=== PATIENT | female | born 1940 | race Caucasian/White ===

== ENCOUNTER → 2017-08-06 | Outpatient (CLI) | payer MEDICARE ==
[~2017-08-06] MED LIST: ACET-1697 PO; AMIO200T50 PO; ASP81CT PO; CALC-80 PO; CARB15DR75 OU; CEFU500T5 PO; DIGO125T PO; DILT120C82 PO; DILT120T11 PO; DLT60T PO; FISH1CAP15 PO; FRSM40T; FURO80TA3 PO; GMFB600T; HCT25T PO; KCL10CCR; KCL20TCR PO; LOVA20TA2 PO; LVT.05T PO; METO50TA2 PO; METO50TA7 PO; MULT-142 PO; NFAMINITAB PO; OMEG1CAP51 PO; OMG1KC; OMG1KC PO; PACERONE; PRAV40TA PO; VIT1TABL57 PO; WARF2.5T56 PO; WRF2.5T; WRF5T; WRF5T PO
--- NOTE | 2017-08-07 10:03 | Diagnostic Imaging Report ---
EXAMINATION: Bilateral screening mammogram 2D views with tomosynthesis. The current study was also evaluated with a Computer Aided Detection (CAD) system. INDICATION: Screening. PERSONAL HISTORY: No current complaints stated on the questionnaire. COMPARISON: 07/30/2016. FINDINGS: The breasts are composed of heterogeneously dense parenchyma in the left breast and scattered fibroglandular densities on the right side with global asymmetry, stable from multiple prior exams. A pacemaker projects over the left axillary region. Benign-appearing calcifications are noted. Circumscribed lesions in the outer aspect of the left breast are again seen, previously demonstrated to be cysts with ultrasound. Allowing for technique and positional differences, no suspicious change is seen. IMPRESSION: No significant change. ACR BI-RADS Category 2: Benign findings. Result letter will be mailed to the patient. Note: At least 10% of breast cancer is not imaged by mammography. Dictated by: Dictated on workstation # [id number]
== END ==
LOC: RAD 09:34
PROVIDERS: ATTEND Family Medicine
DX: Z12.31 Encounter for screening mammogram for malignant neoplasm of breast (principal)
CPT/HCPCS: 77067

== ENCOUNTER 2018-11-21 07:29 | Day surgery (SDC) | payer MEDICARE ==
[~2018-11-21] VITALS: Ht 160 cm; Wt 153.8 kg
[2018-11-21] VITALS (10 sets, daily range): BP systolic 105–142; BP diastolic 49–84
--- OUTSIDE RECORDS SUMMARY | 2018-11-21 07:32 | XMS REPORT | Clinical Summary ---
Author Author [facility] Organization [facility] Address Unknown Phone Unavailable Care Team Providers Care Border Measurer And Cutter Name Role Phone Cesario Lobato PCP Robina Elias RN Unavailable Unavailable Nadege Forbes RN Unavailable Unavailable Source Comments Some departments are not documenting in the electronic medical record. If you do not see the information that you expected, contact Release of Information in the Health Information Management department at [phone] for further assistance in locating additional records.[facility] Allergies Comments Active Allergy Reactions Severity Noted Date Pulls skin off. Tolerates paper tape Adhesive Tape (Rosins) SEE COMMENTS Low 03/17/2015 Hydrocodone NAUSEA ONLY Low 03/17/2015 Rhabdomyosis Gemfibrozil UNKNOWN Low 03/03/2015 Medications End Date Status Medication Sig Dispensed Refills Start Date Active furosemide (LASIX) 80 mg Take 80 mg by 0 tablet mouth every morning. Active potassium chloride SR Take 20 mEq 0 (K-DUR) 20 mEq tablet by mouth daily. Active warfarin (COUMADIN) 2.5 Take 2.5 mg 0 mg tablet by mouth daily. 2.5 everyday, 5 mg Saturday/ day Active fish oil /omega-3 fatty Take 1 Cap by 0 acids (SEA-OMEGA) mouth daily. 340/1000 mg capsule Active VIT C/VIT Take 1 Tab by 0 E/LUTEIN/MIN/OMEGA-3 mouth daily. (OCUVITE PO) Active CALCIUM CARBONATE/VITAMIN Take 1 Tab by 0 D3 (CALCIUM + D PO) mouth twice daily. Active levothyroxine (SYNTHROID) Take 50 mcg 0 50 mcg tablet by mouth every morning. Active acetaminophen (TYLENOL) Take 1,000 mg 0 500 mg tablet by mouth every 6 hours as needed for Pain. Active lovastatin(+) (MEVACOR) Take 20 mg by 0 20 mg tablet mouth at bedtime daily. Active CARBOXYMETHYLCELLULOSE Place 2 Drops 0 SODIUM (REFRESH OP) into or around eye(s) as Needed. Active Problems Problem Noted Date Persistent atrial fibrillation 03/23/2015 Chronic anticoagulation, on warfarin 03/22/2015 Paroxysmal atrial fibrillation 03/03/2015 Edema 03/03/2015 Hypertension 03/03/2015 Hyperlipidemia 03/03/2015 Morbid obesity with BMI of 50.0-59.9, adult 03/03/2015 Osteoarthritis 03/03/2015 Bilateral carotid artery stenosis 03/03/2015 History of CHF (congestive heart failure) 03/03/2015 Overview: 02/15/2014- echo: EF: 60% CAD (coronary artery disease) 03/03/2015 Hypothyroid 03/03/2015 Left ventricular hypertrophy 03/03/2015 Obstructive sleep apnea 03/03/2015 S/P cholecystectomy 03/03/2015 Family History Medical History Relation Name Comments Pacemaker Father Heart Failure Mother Pacemaker Mother Relation Name Status Comments Father Mother Social History Date Tobacco Use Types Packs/Day Years Used Never Smoker Smokeless Tobacco: Never Used Alcohol Use Drinks/Week oz/Week Comments No Sex Assigned at Date Recorded Not on file Industry Job Start Date Occupation Not on file Not on file Not on file Travel End Travel History Travel Start No recent travel history available. Last Filed Vital Signs Time Taken Vital Sign Reading 05/04/2015 8:26 AM CDT Blood Pressure 126/78 05/04/2015 8:26 AM CDT Pulse 102 03/23/2015 10:11 AM CDT Temperature 36.7 C (98.1 F) - Respiratory Rate - 03/23/2015 10:11 AM CDT Oxygen Saturation 98% - Inhaled Oxygen - Concentration 05/04/2015 8:26 AM CDT Weight 152.4 kg (336 lb) 05/04/2015 8:26 AM CDT Height 160 cm (5' 2.99") 05/04/2015 8:26 AM CDT Body Mass Index 59.53 Plan of Treatment Health Maintenance Due Date Last Done Comments PHYSICAL (COMPREHENSIVE) 1947 EXAM DTAP/TDAP VACCINES (1 - 02/25/1960 Tdap) SHINGLES RECOMBINANT 02/25/1992 VACCINE (1 of 2) OSTEOPOROSIS 2007 SCREENING/MONITORING PNEUMONIA (PCV13/PPSV23) 2007 VACCINES (1 of 2 - PCV13) INFLUENZA VACCINE 03/26/2018 Implants Device Identifier Shelf Expiration Date Model / Serial / Lot Implanted Type Area Manufactur er Pacemaker Pacemaker Results Not on filefrom Last 3 Months Insurance Type Payer Benefit Subscriber ID Effective Phone Address Plan / Dates Group Medicare COVENTRY MEDICARE COVENTRY xxxxxxxxxxx [id number] ADVANTRA resent MEDICARE PPO Advance Directives Patient has advance care planning documents, and code status on file. For more information, please contact: [facility] [address] [place] [address] Date Inactivated Comments Code Status Date Activated 03/23/2015 12:29 PM Full Code 03/22/2015 6:16 AM Provider has discussed Code Status No, more discussion w/Patient or Family? needed
--- OUTSIDE RECORDS SUMMARY | 2018-11-21 07:33 | XMS REPORT | Continuity of Care Document ---
Author Author [facility] Organization [facility] Address Unknown Phone Unavailable Allergies Active Description Code Type Severity Reaction Onset Reported/Identified Relationship to Patient Clinical Status Yes codeine [id number] Drug Allergy Unknown N/A 05/28/2007 Yes hydrocodone [id number] Drug Allergy Mild NAUSEA 03/26/2008 Medications There is no data. Problems Date Dx Coded Attending Type Code Diagnosis Diagnosed By 11/25/2009 Ot 327.23 11/25/2009 Ot 427.31 01/03/2012 Ot 272.4 HYPERLIPIDEMIA NEC/NOS 01/03/2012 Ot 397.0 TRICUSPID VALVE DISEASE 01/03/2012 Ot 401.9 HYPERTENSION NOS 01/03/2012 Ot 416.8 CHR PULMON HEART DIS NEC 01/03/2012 Ot 424.0 MITRAL VALVE DISORDER 01/03/2012 Ot 427.31 ATRIAL FIBRILLATION 01/03/2012 Ot 427.32 ATRIAL FLUTTER 01/03/2012 Ot 427.81 SINOATRIAL NODE DYSFUNCT 01/03/2012 Ot 429.9 HEART DISEASE NOS 01/03/2012 Ot 496 CHR AIRWAY OBSTRUCT NEC 04/19/2012 Ot 244.9 HYPOTHYROIDISM NOS 04/19/2012 Ot 272.4 HYPERLIPIDEMIA NEC/NOS 04/19/2012 Ot 276.51 DEHYDRATION 04/19/2012 Ot 276.8 HYPOPOTASSEMIA 04/19/2012 Ot 278.01 MORBID OBESITY 04/19/2012 Ot 327.23 OBSTRUCTIVE SLEEP APNEA (ADULT) (PEDIATR 04/19/2012 Ot 401.9 HYPERTENSION NOS 04/19/2012 Ot 416.8 CHR PULMON HEART DIS NEC 04/19/2012 Ot 427.31 ATRIAL FIBRILLATION 04/19/2012 Ot 428.0 CONGESTIVE HEART FAILURE NOS 04/19/2012 Ot 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 04/19/2012 Ot 496 CHR AIRWAY OBSTRUCT NEC 04/19/2012 Ot 593.9 RENAL URETERAL DIS NOS 04/19/2012 Ot 783.21 LOSS OF WEIGHT 04/19/2012 Ot 790.92 COAGULATION PROFILE, ABNORMAL 04/19/2012 Ot V45.01 CARDIAC PACEMAKER IN SITU 04/19/2012 Ot V60.3 PERSON LIVING ALONE 04/19/2012 Ot V85.43 BODY MASS INDEX 50.0-59.9, ADULT 07/21/2014 ASHLI OLIVERA DO Ot V76.12 11/06/2014 ANI DELUNA MD Ot 244.9 HYPOTHYROIDISM NOS 11/06/2014 ANI DELUNA MD Ot 272.4 HYPERLIPIDEMIA NEC/NOS 11/06/2014 ANI DELUNA MD Ot 276.51 DEHYDRATION 11/06/2014 ANI DELUNA MD Ot 278.01 MORBID OBESITY 11/06/2014 ANI DELUNA MD Ot 327.23 OBSTRUCTIVE SLEEP APNEA (ADULT) (PEDIATR 11/06/2014 ANI DELUNA MD Ot 401.9 HYPERTENSION NOS 11/06/2014 ANI DELUNA MD Ot 416.8 CHR PULMON HEART DIS NEC 11/06/2014 ANI DELUNA MD Ot 427.31 ATRIAL FIBRILLATION 11/06/2014 ANI DELUNA MD Ot 428.0 CONGESTIVE HEART FAILURE NOS 11/06/2014 ANI DELUNA MD Ot 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 11/06/2014 ANI DELUNA MD Ot 496 CHR AIRWAY OBSTRUCT NEC 11/06/2014 ANI DELUNA MD Ot V45.01 CARDIAC PACEMAKER IN SITU 11/06/2014 ANI DELUNA MD Ot V85.44 BODY MASS INDEX 60.0-69.9, ADULT 11/25/2014 ANI DELUNA MD Ot 244.9 11/25/2014 ANI DELUNA MD Ot 272.4 11/25/2014 ANI DELUNA MD Ot 276.51 11/25/2014 ANI DELUNA MD Ot 278.01 11/25/2014 ANI DELUNA MD Ot 327.23 11/25/2014 ANI DELUNA MD Ot 401.9 11/25/2014 ANI DELUNA MD Ot 416.8 11/25/2014 ANI DELUNA MD Ot 427.31 11/25/2014 ANI DELUNA MD Ot 428.0 11/25/2014 ANI DELUNA MD Ot 428.22 11/25/2014 ANI DELUNA MD Ot 496 11/25/2014 ANI DELUNA MD Ot V45.01 11/25/2014 ANI DELUNA MD Ot V85.44 01/25/2015 Ot V76.12 01/25/2015 Ot 272.4 01/25/2015 Ot 401.9 01/25/2015 Ot 414.01 01/25/2015 Ot 401.9 01/25/2015 Ot 429.3 01/25/2015 Ot V58.69 01/25/2015 Ot 611.72 01/25/2015 Ot V76.12 01/25/2015 Ot 272.4 01/25/2015 Ot 272.4 01/25/2015 Ot 401.9 01/25/2015 Ot 427.31 01/25/2015 Ot V76.12 01/25/2015 Ot 427.31 01/25/2015 Ot 276.8 01/25/2015 Ot 593.9 01/25/2015 Ot 782.3 01/25/2015 Ot 793.80 01/25/2015 Ot V76.12 01/25/2015 Ot 793.80 01/25/2015 ASHLI OLIVERA DO Ot 610.0 01/25/2015 ANI DELUNA MD Ot 397.0 01/25/2015 ANI DELUNA MD Ot 401.9 01/25/2015 ANI DELUNA MD Ot 414.00 01/25/2015 ANI DELUNA MD Ot 424.0 01/25/2015 ANI DELUNA MD Ot 428.0 01/25/2015 ASHLI OLIVERA DO Ot V76.12 01/26/2015 ANI DELUNA MD Ot 401.9 HYPERTENSION NOS 01/26/2015 ANI DELUNA MD Ot 414.00 CORON ATHEROSCLER NOS TYPE VESSEL, NATIV 01/26/2015 ANI DELUNA MD Ot 424.0 MITRAL VALVE DISORDER 01/26/2015 ANI DELUNA MD Ot 427.31 ATRIAL FIBRILLATION 01/26/2015 ANI DELUNA MD Ot 428.0 CONGESTIVE HEART FAILURE NOS 01/26/2015 ANI DELUNA MD Ot 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 01/26/2015 ANI DELUNA MD Ot 496 CHR AIRWAY OBSTRUCT NEC 01/26/2015 ANI DELUNA MD Ot 785.0 TACHYCARDIA NOS 01/26/2015 ANI DELUNA MD Ot V58.61 ANTICOAGULANTS,LT,CURRENT USE 01/26/2015 ANI DELUNA MD Ot V58.69 OTH MED,LT,CURRENT USE 03/23/2015 Ot 272.4 03/23/2015 Ot 401.9 03/23/2015 Ot 414.01 03/23/2015 Ot 401.9 03/23/2015 Ot 429.3 03/23/2015 Ot V58.69 03/23/2015 Ot 611.72 03/23/2015 Ot V76.12 03/23/2015 Ot 272.4 03/23/2015 Ot 272.4 03/23/2015 Ot 401.9 03/23/2015 Ot 427.31 03/23/2015 Ot V76.12 03/23/2015 Ot 427.31 03/23/2015 Ot 276.8 03/23/2015 Ot 593.9 03/23/2015 Ot 782.3 03/23/2015 Ot 793.80 03/23/2015 Ot V76.12 03/23/2015 Ot 793.80 03/23/2015 ASHLI OLIVERA DO Ot 610.0 03/23/2015 ANI DELUNA MD Ot 397.0 03/23/2015 ANI DELUNA MD Ot 401.9 03/23/2015 ANI DELUNA MD Ot 414.00 03/23/2015 ANI DELUNA MD Ot 424.0 03/23/2015 ANI DELUNA MD Ot 428.0 03/23/2015 ASHLI OLIVERA DO Ot V76.12 07/27/2015 ASHLI OLIVERA DO Ot Z12.31 08/05/2015 ASHLI OLIVERA DO Ot Z12.31 12/09/2015 ANI DELUNA MD Ot E78.2 MIXED HYPERLIPIDEMIA 12/09/2015 ANI DELUNA MD Ot I10 ESSENTIAL (PRIMARY) HYPERTENSION 12/09/2015 ANI DELUNA MD Ot I27.2 OTHER SECONDARY PULMONARY HYPERTENSION 12/09/2015 ANI DELUNA MD Ot I48.0 PAROXYSMAL ATRIAL FIBRILLATION 12/21/2015 ANI DELUNA MD Ot E78.2 MIXED HYPERLIPIDEMIA 12/21/2015 REGI MD, BASHAR J Ot I10 ESSENTIAL (PRIMARY) HYPERTENSION 12/21/2015 ANI DELUNA MD Ot I27.2 OTHER SECONDARY PULMONARY HYPERTENSION 12/21/2015 ANI DELUNA MD Ot I48.0 PAROXYSMAL ATRIAL FIBRILLATION 12/25/2015 Ot 272.4 12/25/2015 Ot 276.8 HYPOPOTASSEMIA 12/25/2015 Ot 593.9 RENAL URETERAL DIS NOS 12/25/2015 Ot 782.3 EDEMA 01/06/2016 ANI DELUNA MD Ot E78.2 MIXED HYPERLIPIDEMIA 01/06/2016 ANI DELUNA MD Ot I10 ESSENTIAL (PRIMARY) HYPERTENSION 01/06/2016 ANI DELUNA MD Ot I27.2 OTHER SECONDARY PULMONARY HYPERTENSION 01/06/2016 ANI DELUNA MD Ot I48.0 PAROXYSMAL ATRIAL FIBRILLATION 02/23/2016 ANI DELUNA MD Ot E78.2 MIXED HYPERLIPIDEMIA 02/23/2016 ANI DELUNA MD Ot I10 ESSENTIAL (PRIMARY) HYPERTENSION 02/23/2016 ANI DELUNA MD Ot I27.2 OTHER SECONDARY PULMONARY HYPERTENSION 02/23/2016 ANI DELUNA MD Ot I48.0 PAROXYSMAL ATRIAL FIBRILLATION 04/26/2016 Ot 272.4 05/26/2016 Ot 276.8 HYPOPOTASSEMIA 05/26/2016 Ot 593.9 RENAL URETERAL DIS NOS 05/26/2016 Ot 782.3 EDEMA 07/30/2016 Ot 272.4 HYPERLIPIDEMIA NEC/NOS 07/30/2016 Ot 272.4 HYPERLIPIDEMIA NEC/NOS 07/30/2016 Ot 401.9 HYPERTENSION NOS 07/30/2016 Ot 427.31 ATRIAL FIBRILLATION 07/30/2016 Ot V76.12 OTH SCREEN MAMMO-MALIGN NEOPLASM OF JUNG 07/30/2016 Ot 427.31 ATRIAL FIBRILLATION 07/30/2016 Ot 276.8 HYPOPOTASSEMIA 07/30/2016 Ot 593.9 RENAL URETERAL DIS NOS 07/30/2016 Ot 782.3 EDEMA 07/30/2016 Ot 793.80 UNSPEC ABNORMAL MAMMOGRAM 07/30/2016 Ot V76.12 OTH SCREEN MAMMO-MALIGN NEOPLASM OF JUNG 07/30/2016 Ot 793.80 UNSPEC ABNORMAL MAMMOGRAM 07/30/2016 ASHLI OLIVERA DO Ot 610.0 SOLITARY CYST OF BREAST 07/30/2016 ANI DELUNA MD Ot 397.0 TRICUSPID VALVE DISEASE 07/30/2016 ANI DELUNA MD Ot 401.9 HYPERTENSION NOS 07/30/2016 ANI DELUNA MD Ot 414.00 CORON ATHEROSCLER NOS TYPE VESSEL, NATIV 07/30/2016 ANI DELUNA MD Ot 424.0 MITRAL VALVE DISORDER 07/30/2016 ANI DELUNA MD Ot 428.0 CONGESTIVE HEART FAILURE NOS 07/30/2016 ASHLI OLIVEAR DO Ot V76.12 OTH SCREEN MAMMO-MALIGN NEOPLASM OF JUNG 07/30/2016 ASHLI OLIVERA DO Ot Z12.31 ENCNTR SCREEN MAMMOGRAM FOR MALIGNANT NE 07/30/2016 ANI DELUNA MD Ot E78.2 MIXED HYPERLIPIDEMIA 07/30/2016 ANI DELUNA MD Ot I10 ESSENTIAL (PRIMARY) HYPERTENSION 07/30/2016 ANI DELUNA MD Ot I27.2 OTHER SECONDARY PULMONARY HYPERTENSION 07/30/2016 ANI DELUNA MD Ot I48.0 PAROXYSMAL ATRIAL FIBRILLATION 07/30/2016 ASHLI OLIVERA DO Ot Z12.31 ENCNTR SCREEN MAMMOGRAM FOR MALIGNANT NE 07/31/2016 ASHLI OLIVERA DO Ot Z12.31 ENCNTR SCREEN MAMMOGRAM FOR MALIGNANT NE 08/10/2016 ASHLI OLIVERA DO Ot Z12.31 ENCNTR SCREEN MAMMOGRAM FOR MALIGNANT NE 09/26/2016 Ot 276.8 HYPOPOTASSEMIA 09/26/2016 Ot 593.9 RENAL URETERAL DIS NOS 09/26/2016 Ot 782.3 EDEMA 04/26/2017 Ot 276.8 HYPOPOTASSEMIA 04/26/2017 Ot 593.9 RENAL URETERAL DIS NOS 04/26/2017 Ot 782.3 EDEMA 05/26/2017 Ot 272.4 05/26/2017 Ot 276.8 HYPOPOTASSEMIA 05/26/2017 Ot 593.9 RENAL URETERAL DIS NOS 05/26/2017 Ot 782.3 EDEMA 08/20/2017 ASHLI OLIVERA DO Ot Z12.31 ENCNTR SCREEN MAMMOGRAM FOR MALIGNANT NE 11/18/2018 ASHLI OLIVERA DO Ot 610.0 SOLITARY CYST OF BREAST 11/18/2018 ANI DELUNA MD Ot 397.0 TRICUSPID VALVE DISEASE 11/18/2018 ANI DELUNA MD Ot 401.9 HYPERTENSION NOS 11/18/2018 ANI DELUNA MD Ot 414.00 CORON ATHEROSCLER NOS TYPE VESSEL, NATIV 11/18/2018 ANI DELUNA MD Ot 424.0 MITRAL VALVE DISORDER 11/18/2018 ANI DELUNA MD Ot 428.0 CONGESTIVE HEART FAILURE NOS 11/18/2018 ASHLI OLIVERA DO Ot V76.12 OTH SCREEN MAMMO-MALIGN NEOPLASM OF JUNG 11/18/2018 ASHLI OLIVERA DO Ot Z12.31 ENCNTR SCREEN MAMMOGRAM FOR MALIGNANT NE 11/18/2018 ANI DELUNA MD Ot E78.2 MIXED HYPERLIPIDEMIA 11/18/2018 ANI DELUNA MD Ot I10 ESSENTIAL (PRIMARY) HYPERTENSION 11/18/2018 ANI DELUNA MD Ot I27.2 OTHER SECONDARY PULMONARY HYPERTENSION 11/18/2018 ANI DELUNA MD Ot I48.0 PAROXYSMAL ATRIAL FIBRILLATION 11/18/2018 ASHLI OLIVERA DO, Ot Z12.31 ENCNTR SCREEN MAMMOGRAM FOR MALIGNANT NE 11/18/2018 ASHLI OLIVERA DO, Ot Z12.31 ENCNTR SCREEN MAMMOGRAM FOR MALIGNANT NE Procedures Code Description Performed By Performed On 88.72 DX ULTRASOUND-HEART 12/31/2011 99.62 HEART COUNTERSHOCK NEC 12/31/2011 37.72 INITIAL INSERT TRANS LEADS INTO ATRIUM 01/02/2012 37.83 INITIAL INSERTION OF DUAL- CHAMBER DEVICE 01/02/2012 Results There is no data. Encounters ACCT No. Visit Date/Time Discharge Status Pt. Type Provider Facility Loc./Unit Complaint [id number] 08/06/2017 09:34:00 08/06/2017 23:59:59 CLS Outpatient ASHLI OLIVERA DO [facility] RAD YEARLY [id number] 07/30/2016 11:18:00 07/30/2016 23:59:59 CLS Outpatient ASHLI OLIVERA DO [facility] RAD YEARLY [id number] 12/08/2015 11:31:00 12/08/2015 23:59:59 CLS Outpatient ANI DELUNA MD [facility] CARD PAF,PULMONARY HTN,HLP [id number] 07/25/2015 10:46:00 07/25/2015 23:59:59 CLS Outpatient NAZARIOASHLI RIBEIRO DO [facility] RAD SCREENING [id number] 01/26/2015 07:58:00 01/26/2015 11:57:00 DIS Outpatient ANI DELUNA MD [facility] CATH AFIB,CHF, [id number] 11/04/2014 07:40:00 11/06/2014 13:30:00 DIS Inpatient ANI DELUNA MD [facility] ICU AFIB W RVR [id number] 07/01/2014 12:36:00 07/01/2014 23:59:59 CLS Outpatient ASHLI OLIVERA DO [facility] RAD SCREENING [id number] 02/12/2014 09:54:00 02/12/2014 23:59:59 CLS Outpatient ANI DELUNA MD [facility] CARD CAD,CHF,CAROTID ARTERY STENOSIS,HTN [id number] 05/29/2013 09:05:00 05/29/2013 23:59:59 CLS Outpatient ASHLI OLIVERA DO [facility] RAD SIX MONTH F/U [id number] 11/21/2018 10:00:00 PEN Preadmit ANI DELUNA MD [facility] CATH JAIRO,CHF,SSS,HTN [id number] 11/18/2018 10:01:00 PEN Preadmit ASHLI OLIVERA DO [facility] RAD POST MENOPAUSAL VAGINAL BLEEDING [id number] 01/25/2015 10:46:00 Document Registration [id number] 01/25/2015 10:46:00 Document Registration [id number] 01/25/2015 10:46:00 Document Registration [id number] 11/07/2012 11:20:00 Document Registration [id number] 04/16/2012 15:00:00 Document Registration [id number] 04/14/2012 12:23:00 Document Registration [id number] 01/07/2012 13:22:00 Document Registration [id number] 10/26/2011 08:38:00 Document Registration [id number] 10/04/2011 11:03:00 Document Registration [id number] 07/25/2011 09:09:00 Document Registration [id number] 04/05/2011 08:59:00 Document Registration [id number] 10/10/2010 08:46:00 Document Registration [id number] 10/05/2010 08:49:00 Document Registration [id number] 11/24/2009 19:39:00 Document Registration [id number] 09/28/2009 13:28:00 Document Registration [id number] 06/09/2007 09:05:00 Document Registration [id number] 01/26/2015 07:58:19 ACT Document Registration
[2018-11-21] MEDS ORDERED: NS IV 1000 ML 1,000 ML IV SCH ×2 (07:51→11:11)
[2018-11-21] MEDS ORDERED: NS IV 1000 ML 2,000 ML ONE (07:55)
[2018-11-21] MEDS ORDERED: LIDOCAINE 1% INJ 20 ML 20 ML VIAL ONE (07:55)
[2018-11-21] MEDS ORDERED: HEParin 1000 UNIT/ML (10ML VIAL) FOR BOLUS ONE (07:55)
--- NOTE | 2018-11-21 08:32 | Diagnostic Imaging Report ---
INDICATION: CHF. TIME OF EXAMINATION: 8:20 AM. COMPARISON: 01/26/2015. FINDINGS: The heart is enlarged but stable. The cardiac pacemaker remains in place. The lungs are clear. No infiltrate or failure is detected. There is no effusion or pneumothorax. IMPRESSION: Stable chest. No acute feature is detected. Dictated by: Dictated on workstation # [id number]
[2018-11-21] MEDS ORDERED: CALC1TAB94 PO (08:43)
[2018-11-21] MEDS ORDERED: FURO80TA3 PO (08:43)
[2018-11-21] MEDS ORDERED: OMG1KC PO (08:43)
[2018-11-21] MEDS ORDERED: APIX5TAB PO (08:43)
[2018-11-21] MEDS ORDERED: CARB15DR OU (08:43)
[2018-11-21] MEDS ORDERED: ATOR20TA66 PO (08:43)
[2018-11-21] MEDS ORDERED: POTA20TA8 PO (08:43)
[2018-11-21] MEDS ORDERED: LEVO50TA6 PO (08:43)
[2018-11-21] MEDS ORDERED: MV-M1TAB38 PO (08:43)
[2018-11-21] MEDS ORDERED: ACET-168 PO (08:43)
[2018-11-21] MEDS ORDERED: LISI10TA2 PO (08:43)
[2018-11-21] MEDS ORDERED: FLU QUADRIvalent (5+ YOA) 2018-2019 (AFLURIA) 0.5 ML IM ONE (08:45)
[2018-11-21] MEDS ORDERED: BACITRACIN INJECTION 50,000 UNIT, SODIUM CHLORIDE 0.9% IRRIGATIO 500 ML IR ONE ×2 (08:45)
[2018-11-21] MEDS ORDERED: C,E,1CAP PO (08:48)
[2018-11-21] MEDS ORDERED: ceFAZolin INJECTION 1,000 MG ONE (08:48)
[2018-11-21] MEDS ORDERED: fentaNYL INJECTION 100 MCG/2 ML AMP ONE ×2 (08:49→10:37)
[2018-11-21] MEDS ORDERED: MIDAZOLAM 5 MG/5 ML (VERSED) VIAL ONE ×2 (08:49→10:29)
--- NOTE | 2018-11-21 08:51 | NUR ---
PATIENT HAD HER BOTTLES WITH HER AND VERIFIED HOW SHE TAKES EACH MEDICATION.
[2018-11-21 08:54] LABS: HEMOGLOBIN 13.8 G/DL (11.5-16.0); MEAN PLATELET VOLUME 11.9 FL (7.4-10.4); RED CELL DISTRIBUTION WIDTH 13.4 % (10.0-14.5); WHITE BLOOD COUNT 7.4 10^3/uL (4.3-11.0)
[2018-11-21 08:55] LABS: PROTHROMBIN TIME PATIENT 13.7 SEC (12.2-14.7)
[2018-11-21 09:03] LABS: ALANINE AMINOTRANSFERASE 21 U/L (0-55); ALKALINE PHOSPHATASE 69 U/L (40-136); BUN/CREATININE RATIO 25; CALCIUM 9.9 MG/DL (8.5-10.1); CARBON DIOXIDE 24 MMOL/L (21-32); CHLORIDE 105 MMOL/L (98-107); CHOLESTEROL 164 MG/DL (< 200); CREATININE SERUM 0.88 MG/DL (0.60-1.30); GFR ESTIMATED > 60; GLUCOSE 120 MG/DL (70-105); HDL CHOLESTEROL 56 MG/DL (40-60); POTASSIUM 4.2 MMOL/L (3.6-5.0); SODIUM 141 MMOL/L (135-145); TOTAL PROTEIN 7.4 GM/DL (6.4-8.2); TRIGLYCERIDES 83 MG/DL (<150); VLDL CHOLESTEROL 17 MG/DL (5-40)
[2018-11-21] MEDS ORDERED: NEO/POLY/BAC (NEOSPORIN) OINT 15 GM TUBE ONE (10:43)
--- NOTE | 2018-11-21 11:10 | Cardiac Procedure Note-CS/ASA ---
Pre-Procedure Note Pre-Op Procedure Note H&P Reviewed The H&P was reviewed, patient examined and no changes noted. Date H&P Reviewed: Nov 21, 2018 Time H&P Reviewed: 09:30 Conscious Sedation Pre-Proced Time 09:30 ASA Score 3 For ASA 3 and 4: Consider anesthesia and medical clearance. Also, for patients with a history of failed moderate sedation consider anesthesia. Airway Lungs Heart ASA score ASA 1: a normal healthy patient ASA 2: a patient with a mild systemic disease (mid diabetes, controlled hypertension, obesity x ASA 3: a patient with a severe systemic disease that limits activity (angina , COPD, prior Myocardial infarction) ASA 4: a patient with an incapacitating disease that is a constant threat to life (CHF, renal failure) ASA 5: a moribund patient not expected to survive 24 hrs. (ruptured aneurysm) ASA 6: a declared brain- patient whose organs are being harvested. For emergent operations, add the letter E after the classification Mallampati Classification Grade 3 Sedation Plan Analgesia, Amnesia, Plan communicated to team members, Discussed options with patient/fam, Discussed risks with patient/fam The patient is an appropriate candidate to undergo the planned procedure, sedation, and anesthesia. The patient immediately re-assessed prior to indication. ANI DELUNA MD Nov 21, 2018 11:10
[2018-11-21] MEDS ORDERED: PATIENT MAY USE OWN MEDS, ALL PO SCH (11:15)
[2018-11-21] MEDS ORDERED: NON-FORMULARY MEDICATION 1 EA EA (Acetaminophen (Acetaminophen Extra Strength) 1,000 MG) PO PRN (11:15)
--- NOTE | 2018-11-21 11:16 | Packmaker Change ---
Pacemaker Change Physician (s)/Java Lead Engineer (s) Physician ANI DELUNA MD Pre-Procedure Diagnosis Pre-Procedure Diagnosis: complete heart block Post-Procedure Note Procedure Start Date: Nov 21, 2018 Name of Procedure: and dual-chamber pacemaker generator replacement Findings/Procedure Note 78 years old lady with history of paroxysmal atrial fibrillation, complete heart block, pacemaker dependent, reached JAIRO, scheduled for dual-chamber pacemaker generator replacement. Patient will need dual-chamber to stay with MRI compatible device. After x-ray of the procedure to the patient was unconscious were made. Placed on the cardiac catheterization laboratory. Local anesthesia applied, conscious sedation achieved, skin incision was made in the skin pocket was exposed, the old device was removed. IV exam in both atrial and ventricular leads. Appeared to be functioning normally. A new device was implanted and I used a [employer] SUZAN serial # [id number], leads were examined. No complication, device was tested. Patient is in atrial fibrillation, no intrinsic R waves were noted. Threshold for pacing was 2.5 V at 0.4 ms. Device was placed in the pocket and skin pocket was closed on 2 L of sutures. No complication noted Conclusion Successful dual-chamber pacemaker generator replacement with no complications Anesthesia Type: Conscious Sedation Estimated blood loss (mL): 5 ml Contrast Amount: 0 ml Post-Procedure Diagnosis Post-operative diagnosis: Chronic atrial fibrillation 6 sinus syndrome Cardiac pacemaker Hypertension ANI DELUNA MD Nov 21, 2018 11:16
[2018-11-21] MEDS ORDERED: CEFU500T63 PO (11:22)
[2018-11-21] MEDS ORDERED: ceFAZolin INJECTION 1,000 MG in WATER (STERILE) FOR INJECTION 10 ML IV SCH (16:00)
[2018-11-21] MEDS ORDERED: WATER (STERILE) FOR INJ 10 ML BTL INJ NR (16:30)
[2018-11-21] MEDS ORDERED: ceFAZolin INJECTION 1,000 MG VIAL IM NR (16:30)
[2018-11-21] MEDS ORDERED: ATORVASTATIN 20 MG (LIPITOR) TABLET PO SCH (21:00)
[2018-11-21] MEDS ORDERED: lisINopril 10 MG (PRINIVIL) TABLET PO SCH (21:00)
[2018-11-22] MEDS ORDERED: NON-FORMULARY MEDICATION 1 EA EA (Furosemide 80 MG) PO SCH (09:00)
[2018-11-22] MEDS ORDERED: KCL 20 MEQ TAB (K-DUR) PO SCH (09:00)
[2018-11-22] MEDS ORDERED: LEVOTHYROXINE 50 MCG (LEVOTHROID) TAB PO SCH (09:00)
[2018-11-22] MEDS ORDERED: OMEGA 3 (FISH OIL) 1000 MG CAP PO SCH (09:00)
== END 2018-11-21 17:08 | disposition home or self-care (01) ==
LOC: CATH 07:29 → ICU 11:31 → CATH 17:08
PROVIDERS: ATTEND Internal Medicine Cardiovascular Disease
DX: Z45.010 Encounter for checking and testing of cardiac pacemaker pulse generator [battery] (principal); I44.2 Atrioventricular block, complete; I48.2 Chronic atrial fibrillation; I10 Essential (primary) hypertension; E78.5 Hyperlipidemia, unspecified; I27.20 Pulmonary hypertension, unspecified; G47.33 Obstructive sleep apnea (adult) (pediatric); E03.9 Hypothyroidism, unspecified; J44.9 Chronic obstructive pulmonary disease, unspecified; Z79.01 Long term (current) use of anticoagulants; Z79.899 Other long term (current) drug therapy
CPT/HCPCS: 33228; 36415; 71045; 80053; 80061; 85027; 85610; 85730; 87081

== ENCOUNTER → 2018-11-27 | Outpatient (CLI) | payer MEDICARE ==
[~2018-11-27] MED LIST changes: +ACET-168 PO; +APIX5TAB PO; +ATOR20TA66 PO; +C,E,1CAP PO; +CALC1TAB94 PO; +CARB15DR OU; +CEFU500T63 PO; +LEVO50TA6 PO; +LISI10TA2 PO; +MV-M1TAB38 PO; +POTA20TA8 PO
--- NOTE | 2018-11-27 13:43 | Diagnostic Imaging Report ---
PROCEDURE: US PELVIC (NON OB) TECHNIQUE: Multiple real-time grayscale images were obtained over the pelvis in various projections transabdominally. INDICATION: Post menopausal bleeding. Uterus measures 7.2 x 4.7 x 4.5 cm. Endometrium does appear to be thickened at 12 mm. No myometrial mass is identified. Ovaries cannot be visualized due to overlying bowel gas. No adnexal mass or free fluid is seen. IMPRESSION: Thickened endometrium at 12 mm. No other significant abnormality is detected. Dictated by: Dictated on workstation # [id number]
== END ==
LOC: RAD 12:07
PROVIDERS: ATTEND Family Medicine
DX: N95.0 Postmenopausal bleeding (principal); R93.89 Abnormal findings on diagnostic imaging of other specified body structures
CPT/HCPCS: 76856

== ENCOUNTER 2019-02-03 05:35 | Outpatient (CLI) | payer MEDICARE ==
[~2019-02-03] VITALS: Ht 160 cm; Wt 153.8 kg
== END 2019-02-03 13:23 | disposition home or self-care (01) ==
LOC: PREOP 05:35
PROVIDERS: ATTEND Obstetrics & Gynecology
DX: Z01.818 Encounter for other preprocedural examination (principal)

== ENCOUNTER 2019-02-05 07:17 | Day surgery (SDC) | payer MEDICARE ==
[2019-02-05] VITALS (11 sets, daily range): BP systolic 117–159; BP diastolic 61–103
[~2019-02-05] VITALS: Ht 160 cm; Wt 153.8 kg
--- OUTSIDE RECORDS SUMMARY | 2019-02-05 07:22 | XMS REPORT | Encounter Summary ---
Author Author [facility] Organization [facility] Address Unknown Phone Unavailable Care Team Providers Care Or First Assist Registered Nurse Name Role Phone Cesario Lobato PCP Robina Elias RN Unavailable Unavailable Nadege Forbes RN Unavailable Unavailable Reason for Visit * Reason Comments Anticoagulation INR 2.4 on 05/03/15 Encounter Details Care Team Description Date Type Department Alexandria Quiñones RN Anticoagulation (INR 2.4 on 05/03/15) 05/03/2015 Documentation [facility] [address] [place] [address] Social History Date Tobacco Use Types Packs/Day Years Used Never Smoker Smokeless Tobacco: Never Used Drinks/Week oz/Week Comments Alcohol Use No Sex Assigned at Date Recorded Not on file Industry Job Start Date Occupation Not on file Not on file Not on file Travel End Travel History Travel Start No recent travel history available. documented as of this encounter Functional Status Date of Assessment Functional Status Response 03/23/2015 Does the patient have a hearing impairment: No 03/23/2015 Does the patient have a visual impairment: No 03/23/2015 Does the patient have impaired ambulation: No 03/23/2015 Does the patient have an activity of daily living No (ADL) impairment: 03/23/2015 Does the patient have an instrumental activity of No daily living (IADL) impairment: Date of Assessment Cognitive Status Response 03/23/2015 Does the patient have a cognitive impairment: No documented as of this encounter Progress Notes * Alexandria Quiñones RN - 05/03/2015 3:36 PM CDT INR 2.4, weekly s/p ablation 03/22, Dr. Roger manages. documented in this encounter Plan of Treatment Not on filedocumented as of this encounter Procedures Comments Procedure Name Priority Date/Time Associated Diagnosis PROTIME INR (PT) Routine 05/03/2015 documented in this encounter Results * PROTIME INR (PT) (05/03/2015) INR 2.4 OTHER OUTSIDE LAB Specimen Blood - Blood Narrative Performed At Performing Organization Address City/State/Zipcode Phone Number OTHER OUTSIDE LAB documented in this encounter Visit Diagnoses Not on filedocumented in this encounter
--- OUTSIDE RECORDS SUMMARY | 2019-02-05 07:22 | XMS REPORT | Clinical Summary ---
Author Author [facility] Organization [facility] Address Unknown Phone Unavailable Care Team Providers Care Microfilm Mounter Name Role Phone KayliCesario rodriguez PCP Robina Elias RN Unavailable Unavailable Nadege Forbes RN Unavailable Unavailable Source Comments Some departments are not documenting in the electronic medical record. If you d o not see the information that you expected, contact Release of Information in [facility] [place] Information Management department at [phone] for further assistan ce in locating additional records.[facility] Allergies Comments Active Allergy Reactions Severity [...] travel history available. Last Filed Vital Signs Reading Time Taken Comments Vital Sign 126/78 05/04/2015 8:26 AM CDT Blood Pressure 102 05/04/2015 8:26 AM CDT Pulse 36.7 C (98.1 F) 03/23/2015 10:11 AM CDT Temperature - - Respiratory Rate 98% 03/23/2015 10:11 AM CDT Oxygen Saturation - - Inhaled Oxygen Concentration 152.4 kg (336 lb) 05/04/2015 8:26 AM CDT Weight 160 cm (5' 2.99") 05/04/2015 8:26 AM CDT Height 59.53 05/04/2015 8:26 AM CDT Body Mass Index Plan of Treatment Health Maintenance Due Date Last Done Comments PHYSICAL (COMPREHENSIVE) 1947 EXAM DTAP/TDAP VACCINES (1 - 02/25/1960 Tdap) SHINGLES RECOMBINANT 02/25/1992 VACCINE (1 of 2) OSTEOPOROSIS 2007 SCREENING/MONITORING PNEUMONIA (PCV13/PPSV23) 2007 VACCINES (1 of 2 - PCV13) INFLUENZA VACCINE 05/26/2019 Implants Device Identifier Shelf Expiration Date Model / Serial / Lot Implanted Type Area Manufactur er Pacemaker Pacemaker Results Not on filefrom Last 3 Months Insurance Type Payer Benefit Subscriber ID Effective Phone Address Plan / Dates Group Medicare COVENTRY MEDICARE COVENTRY xxxxxxxxxxx [id number] ADVANTRA resent MEDICARE PPO Advance Directives Patient Collar Folder Operator Explanation Type Date Recorded Advance 03/17/2015 8:02 AM Directive/DPOA Date Inactivated Comments Code Status Date Activated 03/23/2015 12:29 PM Full Code 03/22/2015 6:16 AM Provider has discussed Code Status No, more discussion w/Patient or Family? needed
--- OUTSIDE RECORDS SUMMARY | 2019-02-05 07:22 | XMS REPORT | Encounter Summary ---
Author Author [facility] Organization [facility] Address Unknown Phone Unavailable Care Team Providers Care Pull Over Machine Operator Name Role Phone Cesario Lobato PCP Robina Elias RN Unavailable Unavailable Nadege Forbes RN Unavailable Unavailable Reason for Visit * Reason Comments Pacemaker Problem Pt needs pacemaker Lower Rate dec to 70 Encounter Details Care Team Description Date Type Department Elizabeth Anders RN Pacemaker Problem (Pt needs pacemaker Lower Rate dec to 70) 05/04/2015 Telephone [facility] [address] [place] [address] [address] Social History Date Tobacco Use Types Packs/Day [...] impairment: No documented as of this encounter Miscellaneous Notes * Telephone Encounter - Elizabeth Anders - 05/04/2015 3:08 PM CDT Pacemaker check/Dr. Landry OV today. Per Dr. Landry, pacemaker Lower Rate to be d ecreased from 80 to 70ppm. Placed call to pt home & spoke w/ pt. She will would rather have programming adjustment made by [employer] Rep @ Dr. Roger's office in [place]. Placed call to Dr. Roger ([phone]) & they will coordinate MDT Rep & pt's programming adjustment. Pt come into [place] office 05-26-15 for ajustment. documented in this encounter Plan of Treatment Not on filedocumented as of this encounter Visit Diagnoses Not on filedocumented in this encounter
--- OUTSIDE RECORDS SUMMARY | 2019-02-05 07:22 | XMS REPORT | Encounter Summary ---
Author Author [facility] Organization [facility] Address Unknown Phone Unavailable Care Team Providers Care Curtain Stretcher Name Role Phone Cesario Lobato PCP Robina Elias RN Unavailable Unavailable Nadege Forbes RN Unavailable Unavailable Reason for Visit * Reason Comments Cardiac Eval 2 month f/u re PAF Encounter Details Care Team Description Date Type Department Obi Landry MD [address] [address] Cardiac Eval (2 month f/u re PAF) 05/04/2015 Office Visit [facility] [address] [id number] Social History Date Tobacco Use Types Packs/Day Years Used Never Smoker Smokeless Tobacco: Never Used Drinks/Week oz/Week Comments Alcohol Use No Sex Assigned at Date Recorded Not on file Industry Job Start Date Occupation Not on file Not on file Not on file Travel End Travel History Travel Start No recent travel history available. documented as of this encounter Last Filed Vital Signs Reading Time Taken Comments Vital Sign 126/78 05/04/2015 8:26 AM CDT Blood Pressure 102 05/04/2015 8:26 AM CDT Pulse - - Temperature - - Respiratory Rate - - Oxygen Saturation - - Inhaled Oxygen Concentration 152.4 kg (336 lb) 05/04/2015 8:26 AM CDT Weight 160 cm (5' 2.99") 05/04/2015 8:26 AM CDT Height 59.53 05/04/2015 8:26 AM CDT Body Mass Index documented in this encounter Functional Status Date of Assessment [...] impairment: No documented as of this encounter Patient Instructions * Patient Instructions* Obi Landry MD - 05/04/2015 9:34 AM CDT 1. Follow up PRN. documented in this encounter Progress Notes * Obi Landry MD - 05/04/2015 8:46 AM CDT Date of Service: 05/04/2015 Rhoda Leyva is a 75 y.o. female. HPI I had the pleasure of seeing your patient Rhoda Leyva for follow up Vy ctrophysiolgy Consultation in the [facility] as a part of the [facility] [place] office today regarding her now permanent AFIB. She is typically followed and was referred by my good friend and colleague Dr. Owen fung, her primary tankage grinder in [place], [place]. Ms. Leyva is an exceptionally pleasant 75 y.o. female, who is accompanied by h er equally pleasant 3 daughters. Her PMHx briefly includes: Persistent AFIB with RVR, Chronic Anticoagulation, SS S, S/P [employer] MRI Compatible DDDR PPM implant 01/01/15, Normal LV Function by Davina bender by Dr. Roger 01/2014, Non-obstructive CAD by Cath by Dr. Roger in 2006 after Thallium suggested inferior revers., HTN, HLD, Hypothyroidism, OSAS, Nonobstruct preston Carotid Artery disease by duplex 2012 in [place].and Obesity. Her Hx of AFIB dates back at least 5 years ago. She had been on Amiodarone in past but hasd marked SE or intolerances. She has had CVRTs inn the past. She b y pt. Report has a markedly dilated LA. By their report 10/2014 At [facility].she was CVRT'd but did not stay in N SR. 01/2015, Dr. Roger again considered CVRT to restore NSR but ERIKA demonstrated JUAN LUIS clot Dr. Roger had been pursuing V-rate control and she had SSS with slow V-rates of AFIB as well as tachy. So he placed a DDDR PPM. However, despite Metoprolol, Dil tiazem and most recently Digoxin, she continued to be symptomatic. Subsequently she was found to have an LA clot. So she was a poor candidate for r hythm control stratergy. On 03/22/2015 she underwent AV luís ablation at [facility]. Her lopressor, diltaizem a nd digoxin were stopped. IN FOLLOW UP TODAY: Today she is again accompanied by her 3 daughters to our office visit. She says she is doing well since the AV luís ablation. She is able to do more since her procedure. She is now able to walk out to the mailbox and bring her mail back without getting short of breath. She has been walking to and fro in the house as well and this does not tire her as much as it used to. She does still have s ome shortness of breath on moderate exertion. However, she denies any recent we ight gain, orthopnea, or PND. She does have dish maker coughing. She also g ets short of breath on bending and lifting things up; however, this has also imp roved since her AV luís ablation. Back at the time of AV luís ablation, her p acemaker rate was set at 80 paces per minute. At the time of her discharge, her platelet count was 80,000 which had gone down from 240,000. She had not received any significant doses of heparin as it was a right sided ablation. A repeat p latelet count was done and now it is back up to 243,000 on March 25, 2015. She i s on Coumadin and she is taking her warfarin regularly and her INR at her last c heck yesterday was 2.4. She denies any bleeding problems. For her chronic lower extremity edema, she is on Lasix 80 mg daily. She has nor mal kidney function. She denies any orthostatic symptoms. For her sick sinus syndrome, as mentioned, she has a DDDR pacemaker in place. H er pacemaker check evaluated today shows she is 99% V-paced and there is no esca pe rhythm, when we checked it at a VVI setting of 35 paces per minute. Her und erlying rhythm is AFib. She does have a body habitus for sleep apnea; however, she says her sleep apnea testing in the past was inconclusive. She denies any symptoms of daytime drowsi ness. She states she feels refreshed in the morning when she wakes up. Review of systems and physical examination as below. An EKG done today shows she has underlying AFib with complete heart block with a ventricular paced rhythm at 102 paces per minute. Assessment and Plan: This is a pleasant 75-year-old female in followup today. 1. Permanent atrial fibrillation status post AV luís ablation on March 22, 2015, after failing rate control therapy and rhythm control strategy in the past. Her CHADS-VASc score is 4 and she is on anticoagulation appropriately. Of note, she has also had a history of LA clot in the past. We will continue anticoagulat ion. We will decrease her pacemaker setting to 70 paces per minute. We recomme nd repeating an echo with her local tankage grinder/primary tankage grinder, Dr. Roger to assess her LV function since she is currently 97% RV pacing. This is to look for any pacing-induced cardiomyopathy and to follow up on the LA clot. 2. Lower extremity edema. This has not improved since her AV luís ablation. W e suspect she may have other causes, such as venous insufficiency versus hypoalb uminemia; hence, we recommend checking her albumin levels and consider lower ext remity Doppler in the future. She may be tried on some lower extremity stocking s as well. She can continue her Lasix 80 mg daily. We ll also recommend checki ng to see if she has any right heart failure with pulmonary hypertension on her echo that we are recommending to be repeated. 3. Dysnpea on moderate exertion - likely mild HFpEF that may be compensated and deconditioning. Dont feel she has any pulmonary congestion despite the periphera l edema. Symptomatically she seems to be improving. Advised to start an exercise regimen. 4. Hypertension, controlled. Currently not on any medications. This seems to b e diet controlled. 5. Hypothyroidism. She is on Synthroid 50 mcg daily. We will defer this to the PCP to manage. 6. Hyperlipidemia. She is on lovastatin, Mevacor 20 mg daily, and omega-3 fatty acids 1 capsule daily. 7. Obesity. We talked about weight loss. She will continue to do some dietary control and calorie restriction. She has been advised to follow up with Dr. Roger, her primary tankage grinder. We will be happy to see her on a p.r.n. basis. She understands the plan. ([id number]) I have personally seen and examined the pt. and performed the pritchett portions of th e E/M visit or consultation. The plan was formulated and discussed with the jay mercado. I concur with fellow's documentation of the history, physical exam, assessm ent, and treatment plan, with comments and amends to the note made as needed. She is euvolemic. She overall is doing well and will improve, I anticipate with increased exercise she will improve. Filed Vitals: 05/04/15 0826 BP: 126/78 Pulse: 102 Height: 1.6 m (5' 2.99") Weight: 152.409 kg (336 lb) Body mass index is 59.53 kg/(m^2). Past Medical History Patient Active Problem List Diagnosis Date Noted Persistent atrial fibrillation 03/23/2015 Chronic anticoagulation, on warfarin 03/22/2015 Paroxysmal atrial fibrillation 03/03/2015 Edema 03/03/2015 Hypertension 03/03/2015 Hyperlipidemia 03/03/2015 Morbid obesity with BMI of 50.0-59.9, adult 03/03/2015 Osteoarthritis 03/03/2015 Bilateral carotid artery stenosis 03/03/2015 History of CHF (congestive heart failure) 03/03/2015 02/15/2014- echo: EF: 60% CAD (coronary artery disease) 03/03/2015 Hypothyroid 03/03/2015 Left ventricular hypertrophy 03/03/2015 Obstructive sleep apnea 03/03/2015 S/P cholecystectomy 03/03/2015 Review of Systems Constitution: Positive for malaise/fatigue. Negative for weight gain and weight loss. HENT: Negative. Negative for hearing loss and nosebleeds. Eyes: Negative. Negative for vision loss in left eye and vision loss in right e ye. Cardiovascular: Positive for dyspnea on exertion and leg swelling. Negative for chest pain, claudication, cyanosis, irregular heartbeat, near-syncope, orthopnea , palpitations, paroxysmal nocturnal dyspnea and syncope. Respiratory: Positive for cough. Negative for hemoptysis. Endocrine: Negative. Hematologic/Lymphatic: Negative. Skin: Negative. Negative for rash. Musculoskeletal: Negative. Gastrointestinal: Negative. Negative for abdominal pain, nausea and vomiting. Genitourinary: Negative. Negative for flank pain and hematuria. Neurological: Negative. Negative for dizziness, focal weakness and light-headed ness. Psychiatric/Behavioral: Negative. Negative for altered mental status. Allergic/Immunologic: Negative. Physical Exam Constitutional: No distress. HENT: Head: Normocephalic and atraumatic. Eyes: EOM are normal. Pupils are equal, round, and reactive to light. Neck: Normal range of motion. No JVD present. Cardiovascular: Normal rate. No murmur heard. Pulses: Carotid pulses are 2+ on the right side, and 2+ on the left side. Dorsalis pedis pulses are 2+ on the right side, and 2+ on the left side. Paradoxical split S2 Pulmonary/Chest: Effort normal and breath sounds normal. No respiratory distress . Abdominal: Soft. Bowel sounds are normal. She exhibits no distension. There is n o tenderness. Musculoskeletal: She exhibits edema. Neurological: She is alert and oriented to person, place, and time. No cranial n erve deficit. Skin: No rash noted. She is not diaphoretic. Current Medications (including today's revisions) acetaminophen (TYLENOL) 500 mg tablet Take 1,000 mg by mouth every 6 hours a s needed for Pain. CALCIUM CARBONATE/VITAMIN D3 (CALCIUM + D PO) Take 1 Tab by mouth twice lucia y. CARBOXYMETHYLCELLULOSE SODIUM (REFRESH OP) Place 2 Drops into or around eye( s) as Needed. fish oil /omega-3 fatty acids (SEA-OMEGA) 340/1000 mg capsule Take 1 Cap by mouth daily. furosemide (LASIX) 80 mg tablet Take 80 mg by mouth every morning. levothyroxine (SYNTHROID) 50 mcg tablet Take 50 mcg by mouth every morning. lovastatin(+) (MEVACOR) 20 mg tablet Take 20 mg by mouth at bedtime daily. potassium chloride SR (K-DUR) 20 mEq tablet Take 20 mEq by mouth daily. VIT C/VIT E/LUTEIN/MIN/OMEGA-3 (OCUVITE PO) Take 1 Tab by mouth daily. warfarin (COUMADIN) 2.5 mg tablet Take 2.5 mg by mouth daily. 2.5 everyday, 5 mg Saturday/ documented in this encounter Plan of Treatment Order Schedule Name Type Priority Associated Diagnoses Ordered: 05/04/2015 ECG 12-LEAD ECG Routine Paroxysmal atrial fibrillation Hyperlipidemia Bilateral carotid artery stenosis Congestive heart failure, unspecified congestive heart failure chronicity, unspecified congestive heart failure type documented as of this encounter Visit Diagnoses Diagnosis Paroxysmal atrial fibrillation (HCC) Atrial fibrillation Hyperlipidemia Other and unspecified hyperlipidemia Bilateral carotid artery stenosis Occlusion and stenosis of multiple and bilateral precerebral arteries without mention of cerebral infarction Congestive heart failure, unspecified congestive heart failure chronicity, unspecified congestive heart failure type documented in this encounter
--- OUTSIDE RECORDS SUMMARY | 2019-02-05 07:22 | XMS REPORT | Encounter Summary ---
Author Author [facility] Organization [facility] Address Unknown Phone Unavailable Care Team Providers Care Plant And Machinery Valuer Name Role Phone KayliCesario rodriguez PCP Robina Elias RN Unavailable Unavailable Nadege Forbes RN Unavailable Unavailable Reason for Visit * Reason Comments Labs Only Follow-up CBC Encounter Details Care Team Description Date Type Department Maria Del Carmen Cortez RN Labs Only (Follow-up CBC) 03/25/2015 Documentation [facility] [address] [facility] [place] [address] Social History Date Tobacco Use Types Packs/Day [...] impairment: No documented as of this encounter Plan of Treatment Not on filedocumented as of this encounter Procedures Comments Procedure Name Priority Date/Time Associated Diagnosis CBC Routine 03/25/2015 Paroxysmal atrial fibrillation Essential hypertension Thrombocytopenia documented in this encounter Results * CBC (03/25/2015) White Blood 7.6 OTHER OUTSIDE Cells LAB RBC 4.66 OTHER OUTSIDE LAB Hemoglobin 14.4 OTHER OUTSIDE LAB Hematocrit 44.1 OTHER OUTSIDE LAB MCV 95 OTHER OUTSIDE LAB MCH 31 OTHER OUTSIDE LAB MCHC 33 OTHER OUTSIDE LAB Platelet Count 243 OTHER OUTSIDE LAB MPV OTHER OUTSIDE LAB RDW 14.5 OTHER OUTSIDE LAB Specimen Blood - Blood Narrative Performed At OTHER OUTSIDE LAB Platelet count has normalized. Labs stable for patient. Will continue to monitor. Performing Organization Address City/State/Zipcode Phone Number OTHER OUTSIDE LAB documented in this encounter Visit Diagnoses Diagnosis Paroxysmal atrial fibrillation (HCC) Atrial fibrillation Essential hypertension Unspecified essential hypertension Thrombocytopenia (HCC) Thrombocytopenia, unspecified documented in this encounter
--- OUTSIDE RECORDS SUMMARY | 2019-02-05 07:22 | XMS REPORT | Encounter Summary ---
Author Author [facility] Organization [facility] Address Unknown Phone Unavailable Care Team Providers Care Shift Commander Name Role Phone Cesario Lobato PCP Robina Elias RN Unavailable Unavailable Nadege Forbes RN Unavailable Unavailable Reason for Visit * Reason Comments Anticoagulation INR 2.4, weekly s/p ablation 03/22, Dr. Roger manages Encounter Details Care Team Description Date Type Department Maria Del Carmen Cortez RN Anticoagulation (INR 2.4, weekly s/p ablation 03/22, Dr. Roger manages) 03/25/2015 Documentation [facility] [address] [address] Social History Date Tobacco Use Types Packs/Day [...] Date/Time Associated Diagnosis PROTIME INR (PT) Routine 03/25/2015 documented in this encounter Results * PROTIME INR (PT) (03/25/2015) INR 2.4 OTHER OUTSIDE LAB Specimen Blood - Blood Narrative Performed At Performing Organization Address City/State/Zipcode Phone Number OTHER OUTSIDE LAB documented in this encounter Visit Diagnoses Not on filedocumented in this encounter
--- OUTSIDE RECORDS SUMMARY | 2019-02-05 07:22 | XMS REPORT | Encounter Summary ---
Author Author [facility] Organization [facility] Address Unknown Phone Unavailable Care Team Providers Care Massage Therapy Instructor Name Role Phone Cesario Lobato PCP Robina Elias RN Unavailable Unavailable Nadege Forbes RN Unavailable Unavailable Encounter Details Care Team Description Date Type Department Obi Landry MD [address] [address] [phone] 05/04/2015 Hospital [facility] [address] [address] Social History Date Tobacco Use Types Packs/Day [...] impairment: No documented as of this encounter Medications at Time of Discharge Start Date End Date Medication Sig Dispensed Refills acetaminophen (TYLENOL) Take 1,000 mg 0 500 mg tablet by mouth every 6 hours as needed for Pain. CALCIUM CARBONATE/VITAMIN Take 1 Tab by 0 D3 (CALCIUM + D PO) mouth twice daily. CARBOXYMETHYLCELLULOSE Place 2 Drops 0 SODIUM (REFRESH OP) into or around eye(s) as Needed. fish oil /omega-3 fatty Take 1 Cap by 0 acids (SEA-OMEGA) mouth daily. 340/1000 mg capsule furosemide (LASIX) 80 mg Take 80 mg by 0 tablet mouth every morning. levothyroxine (SYNTHROID) Take 50 mcg 0 50 mcg tablet by mouth every morning. lovastatin(+) (MEVACOR) Take 20 mg by 0 20 mg tablet mouth at bedtime daily. potassium chloride SR Take 20 mEq 0 (K-DUR) 20 mEq tablet by mouth daily. VIT C/VIT Take 1 Tab by 0 E/LUTEIN/MIN/OMEGA-3 mouth daily. (OCUVITE PO) warfarin (COUMADIN) 2.5 Take 2.5 mg 0 mg tablet by mouth daily. 2.5 everyday, 5 mg Saturday/ day documented as of this encounter Plan of Treatment Not on filedocumented as of this encounter Procedures Comments Procedure Name Priority Date/Time Associated Diagnosis DEVICE EVALUATION - PPM Routine 05/04/2015 Paroxysmal atrial 8:35 AM CDT fibrillation Hyperlipidemia Bilateral carotid artery stenosis Congestive heart failure, unspecified congestive heart failure chronicity, unspecified congestive heart failure type documented in this encounter Results * DEVICE EVALUATION - PPM (05/04/2015 8:35 AM CDT) Date of Last OTHER OUTSIDE Remote Check LAB Next Remote OTHER OUTSIDE Check Due LAB Enrollment Date OTHER OUTSIDE LAB Date of OTHER OUTSIDE baseline remote LAB transmission AT/AF Daily OTHER OUTSIDE [place] Hours LAB Average Vent OTHER OUTSIDE Rate during LAB AT/AF #BPM Average Vent OTHER OUTSIDE Rate During LAB AT/AF #Hours Remote No OTHER OUTSIDE Monitoring? LAB Wireless No OTHER OUTSIDE Generator LAB Daily [place] OTHER OUTSIDE [place] Alert? LAB Average OTHER OUTSIDE Venticular Rate LAB AT/AF On/Off VF OTHER OUTSIDE Detection/Thera LAB py Off Date of Last OTHER OUTSIDE ICM Evaluation LAB Next ICM Check OTHER OUTSIDE Due LAB HF Patient No OTHER OUTSIDE LAB Date of Last 05/04/15 OTHER OUTSIDE Programming LAB Next Oct 2015 OTHER OUTSIDE Programming LAB Check Due Date of Last 05/04/15 OTHER OUTSIDE Interrogation LAB Device Mode VVIR OTHER OUTSIDE LAB Lower Rate 80 OTHER OUTSIDE Limit LAB Upper Rate OTHER OUTSIDE Limit LAB Sensor Rate 130 OTHER OUTSIDE Limit LAB Pace AV Delay OTHER OUTSIDE LAB Sense AV Delay OTHER OUTSIDE LAB Mode Switch OTHER OUTSIDE (bpm) LAB High A Rate OTHER OUTSIDE Detect LAB High V Rate OTHER OUTSIDE Detect LAB Mode Switch On OTHER OUTSIDE Status LAB Device juan jose Roger MD OTHER OUTSIDE Implanted By LAB Advisory Info OTHER OUTSIDE LAB Advisory Info 2 OTHER OUTSIDE LAB Permanent OTHER OUTSIDE Comments LAB Permanent OTHER OUTSIDE Comments 2 LAB Permanent OTHER OUTSIDE Comments 3 LAB Permanent OTHER OUTSIDE Comments 4 LAB Permanent OTHER OUTSIDE Comments 5 LAB Permanent OTHER OUTSIDE Comments 6 LAB Permanent OTHER OUTSIDE Comments 7 LAB Research OTHER OUTSIDE Comments LAB Research OTHER OUTSIDE Comments 2 LAB Phone Check OTHER OUTSIDE Next Due LAB JAIRO/EOL 2.81V OTHER OUTSIDE Indicator LAB Generator Medtronic OTHER OUTSIDE Finisher [employer] LAB Generator OTHER OUTSIDE Finisher [employer] LAB Other Generator Model [id number] revo OTHER OUTSIDE # LAB Generator [id number] OTHER OUTSIDE Serial # LAB Generator 01-02-2012 OTHER OUTSIDE Implnat Date LAB Atrial Lead Medtronic OTHER OUTSIDE Finisher [employer] LAB Atrial Lead OTHER OUTSIDE Finisher [employer] LAB Other Atrial Lead [id number] OTHER OUTSIDE Model # LAB Atrial Lead OTHER OUTSIDE Serial # LAB Atrial Lead 01-02-2012 OTHER OUTSIDE Implant Date LAB RV Lead OTHER OUTSIDE Finisher [employer] LAB RV Lead OTHER OUTSIDE Finisher [employer] LAB Other RV Lead Model # [id number] OTHER OUTSIDE LAB RV Lead Serial OTHER OUTSIDE # LAB RV Lead Implant 01-02-2012 OTHER OUTSIDE Date LAB LV Lead OTHER OUTSIDE Finisher [employer] LAB LV Lead OTHER OUTSIDE Finisher [employer] LAB Other LV Lead Model # OTHER OUTSIDE LAB LV Lead Serial OTHER OUTSIDE # LAB LV Lead Implant OTHER OUTSIDE Date LAB Other Implant OTHER OUTSIDE Info LAB Pacemaker Yes OTHER OUTSIDE Dependant LAB Generator No OTHER OUTSIDE Investigational LAB Atrial Lead No OTHER OUTSIDE Investigational LAB RV Lead No OTHER OUTSIDE Investigational LAB LV Lead OTHER OUTSIDE Investigational LAB Device Type VVI-PM OTHER OUTSIDE LAB # Mode S. OTHER OUTSIDE Events LAB # High AT/AF OTHER OUTSIDE Evts LAB # High V Events 0 OTHER OUTSIDE LAB Time in AT/AF 100% OTHER OUTSIDE LAB V Rate in AT/AF OTHER OUTSIDE LAB Single PVSc OTHER OUTSIDE LAB PVC runs OTHER OUTSIDE LAB Battery Voltage 2.97 OTHER OUTSIDE LAB Estimated OTHER OUTSIDE Longevity LAB Magent Rate 84.5 OTHER OUTSIDE LAB A Sense mv 0.8 OTHER OUTSIDE LAB A Lead ohms 512 OTHER OUTSIDE LAB A Capture V AF OTHER OUTSIDE LAB A Capture ms OTHER OUTSIDE LAB Ao Voltage OTHER OUTSIDE LAB AO Pulse Width OTHER OUTSIDE LAB RV Sense mv paced OTHER OUTSIDE LAB RV Lead ohms 560 OTHER OUTSIDE LAB RV Capture V 1.5 OTHER OUTSIDE LAB RV Capture ms 0.5 OTHER OUTSIDE LAB RV Voltage 3 OTHER OUTSIDE LAB RV Pulse Width 1.5 OTHER OUTSIDE LAB LV Sense mv OTHER OUTSIDE LAB LV Lead ohms OTHER OUTSIDE LAB EP LV Capture V OTHER OUTSIDE LAB LV Capture ms OTHER OUTSIDE LAB LV Voltage OTHER OUTSIDE LAB LV Pulse Width OTHER OUTSIDE LAB V-V Timing OTHER OUTSIDE LAB Counters Clrd OTHER OUTSIDE LAB Saved to Disc OTHER OUTSIDE LAB Device OTHER OUTSIDE Reprogram LAB Comments Initial Rhythm AF, Roller Printing Supervisor @ 92-109ppm OTHER OUTSIDE LAB Underlying AF, no QRS @ VVI 35 OTHER OUTSIDE Rhythm LAB -VS% Roller Printing Supervisor 99.7% OTHER OUTSIDE LAB -PROFESSIONAL HOUSING CONSULTANT% OTHER OUTSIDE LAB -VS% OTHER OUTSIDE LAB AP-PROFESSIONAL HOUSING CONSULTANT% OTHER OUTSIDE LAB Initial Rhythm OTHER OUTSIDE LAB Device Function Yes OTHER OUTSIDE WNL LAB Device Yes OTHER OUTSIDE Reprogram LAB Programming? Yes OTHER OUTSIDE LAB Interrogation? Yes OTHER OUTSIDE LAB Device Check by OTHER OUTSIDE Rep LAB Activity OTHER OUTSIDE LAB HRV (range ms) OTHER OUTSIDE LAB FL IND RANGE OTHER OUTSIDE (Last Fluid LAB Index Range) FL IND OTHER OUTSIDE TODAY(Today LAB Fluid Index Value) THOR IMP OTHER OUTSIDE RANGE(Last LAB Optivol Thoracic Impedence Range) THOR IMP OTHER OUTSIDE TODAY(Today's LAB Optivol Thoracic Impedence Value) ICM Evaluation OTHER OUTSIDE LAB Thoracic OTHER OUTSIDE Impedance LAB Evaluated? Remote Check? OTHER OUTSIDE LAB Specimen Narrative Performed At [05/04/2015 8:39:16 AM - [facility]] OTHER OUTSIDE LAB Dual chamber VVI pacemaker programming.Device function appears normal. S/P AV Bhavin Ablation 03/22/15 Events noted:Since 03/23/15 Atrial: permanent AF Ventricular:None Changes made to programming:RV output inc from 2.5V to 3V to maintain safety margin. Pt has [facility] but plans to continue to follow w/ her local waste removalist. Will continue to monitor.Per Dr. Landry Lower Rate needs to be decreased from 80 to 70ppm.Spoke w/ Dr. Roger's office & they will have MDT Rep make adjustment 05-26-15 in [place]. Report given to Dr. Landry in clinic.[employer] Organization Address City/State/Zipcode Phone Number OTHER [...]
--- OUTSIDE RECORDS SUMMARY | 2019-02-05 07:23 | XMS REPORT | Encounter Summary ---
Author Author [facility] Organization [facility] Address Unknown Phone Unavailable Care Team Providers Care Ground Mixer Name Role Phone Cesario Lobato PCP Robina Elias RN Unavailable Unavailable Reason for Visit * Reason Comments Labs Only Needing lab order Encounter Details Care Team Description Date Type Department Chantelle Damon RN [phone] Labs Only (Needing lab order) 03/18/2015 Telephone The [address] [place] [address] Social History Date Tobacco Use Types Packs/Day Years Used Never Smoker Smokeless Tobacco: Never Used Drinks/Week oz/Week Comments Alcohol Use No Sex Assigned at Date Recorded Not on file Industry Job Start Date Occupation Not on file Not on file Not on file Travel End Travel History Travel Start No recent travel history available. 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
--- OUTSIDE RECORDS SUMMARY | 2019-02-05 07:23 | XMS REPORT | Encounter Summary ---
Author Author [facility] Organization [facility] Address Unknown Phone Unavailable Care Team Providers Care Rare/Endangered Species Specialist Name Role Phone Cesario Lobato PCP Robina Elias RN Unavailable Unavailable Reason for Visit * Reason Comments Anticoagulation INR 2.9 Encounter Details Care Team Description Date Type Department Maria Del Carmen Cortez RN Anticoagulation (INR 2.9) 03/18/2015 Anticoagulation The [facility] [address] [place] [address] Social History Date Tobacco Use Types Packs/Day Years Used Never Smoker Smokeless Tobacco: Never Used Drinks/Week oz/Week Comments Alcohol Use No Sex Assigned at Date Recorded Not on file Industry Job Start Date Occupation Not on file Not on file Not on file Travel End Travel History Travel Start No recent travel history available. documented as of this encounter Progress Notes * Kieran Samaniego RN - 03/21/2015 8:52 AM CDT Reviewed with MPE and pt to hold Warfarin the night before the procedure. Pt not ified. * Maria Del Carmen Cortez RN - 03/18/2015 5:14 PM CDT Managed by Dr. Roger. Per pre-procedure instructions: "Your goal INR is to be between 2.0 and 2.5. Please have your INR drawn the frid ay before your procedure for dosing." Patient is currently taking warfarin 5 mg Mon, Wed, Fri; 2.5 mg all other days. Instructed patient to take 2.5 mg Fri, Sat, Sun. Will route to for instructions on dosing 03/21. documented in this encounter Plan of Treatment Not on filedocumented as of this encounter Visit Diagnoses Not on filedocumented in this encounter
--- OUTSIDE RECORDS SUMMARY | 2019-02-05 07:23 | XMS REPORT | Encounter Summary ---
Author Author [facility] Organization [facility] Address Unknown Phone Unavailable Care Team Providers Care Twx Operator Name Role Phone Cesario Lobato PCP Robina Elias RN Unavailable Unavailable Encounter Details Care Team Description Date Type Department Chantelle Damon RN [phone] Paroxysmal atrial fibrillation (Primary Dx); USP (current) use of anticoagulants 03/21/2015 Orders Only The [facility] [address] [facility] [place] [address] Social History Date Tobacco Use Types Packs/Day [...] Order Schedule Name Type Priority Associated Diagnoses 52 Occurrences starting 03/21/2015 until 03/20/2016 PROTIME INR (PT) Lab Routine Paroxysmal atrial fibrillation USP current use of anticoagulant therapy documented as of this encounter Visit Diagnoses Diagnosis Paroxysmal atrial fibrillation (HCC) - Primary Atrial fibrillation USP (current) use of anticoagulants Long-term (current) use of anticoagulants documented in this encounter
--- OUTSIDE RECORDS SUMMARY | 2019-02-05 07:23 | XMS REPORT | Encounter Summary ---
[facility] Address Unknown Phone Unavailable Care Team Providers Care Medical Records Field Technician Name Role Phone Cesario Lobato PCP Robina Elias RN Unavailable Unavailable Nadege Forbes RN Unavailable Unavailable Reason for Visit * Auth/Cert Referred By Contact Referred To Contact Status Reason Specialty Diagnoses / Procedures Ku Pre-Admit [address] [place] [address] Closed Diagnoses atrial fibrillation P rocedures ABLATION: AV NODE Encounter Details Care Team Description Date Type Department Obi Landry MD [address] [facility] [place] [address] [phone] Paroxysmal atrial fibrillation (HCC) 03/22/2015 Hospital Cardio/trtmt/recov - Encounter [address] [facility]. 03/23/2015 [place] [address] Social History Date Tobacco Use Types Packs/Day [...] Signs Reading Time Taken Comments Vital Sign 113/70 03/23/2015 10:11 AM CDT Blood Pressure 90 03/23/2015 10:11 AM CDT Pulse 36.7 C (98.1 F) 03/23/2015 10:11 AM CDT Temperature - - Respiratory Rate 98% 03/23/2015 10:11 AM CDT Oxygen Saturation - - Inhaled Oxygen Concentration 150.8 kg (332 lb 7.3 oz) 03/22/2015 6:33 AM CDT Weight 160 cm (5' 3") 03/22/2015 6:33 AM CDT Height 58.89 03/22/2015 6:33 AM CDT Body Mass Index documented in [...] impairment: No documented as of this encounter Discharge Summaries * Marion Mendoza MD - 03/23/2015 1:44 PM CDT Physician Discharge Summary Name: Rhoda Leyva Date Of : 1940 Age: 75 years Admit date: 03/22/2015 Discharge date: 03/23/2015 Attending Physician: Service: Cardiology-EP Physician Summary completed by: Marion Mendzoa MD Reason for hospitalization: PAtient's ventricular rates were poorly controlled d espite being on metoprolol, verapamil and digoxin all together and she is in pe rsistant afib. She failed amiodarone therapy as well. Hence she was brought in for AV luís abl ation. Significant PMH: Past Medical History Diagnosis Date Macular degeneration Hyperlipidemia Congestive heart disease Coronary artery disease Atrial fibrillation Paroxysmal atrial fibrillation 03/03/2015 Obstructive sleep apnea 03/03/2015 Hypertension 03/03/2015 Bilateral carotid artery stenosis 03/03/2015 CAD (coronary artery disease) 03/03/2015 History of CHF (congestive heart failure) 03/03/2015 02/15/2014- echo: EF: 60% Hypothyroid 03/03/2015 Left ventricular hypertrophy 03/03/2015 S/P cholecystectomy 03/03/2015 Osteoarthritis 03/03/2015 Morbid obesity with BMI of 50.0-59.9, adult 03/03/2015 Chronic anticoagulation 03/22/2015 Allergies: Adhesive tape (rosins); Hydrocodone; and Lopid Brief Hospital Course: The patient was admitted and had a successful AV luís a blation done. Her pacer rate was set initially to 90 bpm and then brought down t o 80 bpm today at the time of discharge. She tolerated the procedure well. On the day of discharge her platelet count had dropped to 80 K from her baseline of 240K. She had not received any heparin in the EP lab. We have decided to fo llow this up as an outpatient. Condition at Discharge: Stable Discharge Diagnoses: Hospital Problems Active Problems * (Principal)Paroxysmal atrial fibrillation Hypertension Morbid obesity with BMI of 50.0-59.9, adult Obstructive sleep apnea Chronic anticoagulation, on warfarin Persistent atrial fibrillation Surgical Procedures: AV líus ablation. Patient Disposition: Home Patient instructions/medications: CBC Standing Status: Future Standing Exp. Date: 03/23/16 Please fax results to: [phone] Attn: Dr. Landry Other Activity Restrictions You should resume your normal activity in [address] after 2 days. No lifting greater than 10 pounds for 1 week. No sexual activity of strenuous a ctivity for 1 week. You may shower now, however no baths for 1 week. Report These Signs and Symptoms Please contact your doctor if you have any of the following symptoms:Chest pain, shortness of breath, lightheadedness, dizziness, near fainting, palpitations, a bd pain, back pain, or bleeding. Questions About Your Stay For questions or concerns regarding your hospital stay: - DURING BUSINESS HOURS (8:00 AM - 4:30 PM): Call [phone] and asked to be transferred to your discharge attending madhavi ji. - AFTER BUSINESS HOURS (4:30 PM - 8:00 AM, on weekends, or holidays): Call [phone] and ask the maintainer operator to page the on-call doctor for the discha rge attending physician. Discharging attending physician: OBI LANDRY [[id number]] Cardiac Diet Limiting unhealthy fats and cholesterol is the most important step you can take in reducing your risk for cardiovascular disease. Unhealthy fats include satura dariela and trans fats. Monitor your sodium and cholesterol intake. Restrict your sodium to 2g (grams) or 2000mg (milligrams) daily, and your cholesterol to 200mg daily. If you have questions regarding your diet at home, you may contact a dietitian magalis t . Return Appointment Please keep your previously scheduled appt. to see Dr. Landry at the [facility]. [facility] [address] [facility], [address] [place] [address] Provider OBI LANDRY [[id number]] Location [facility] Appointment date: 04/28/2015 Appointment time: 8:00 AM Warfarin Information WARFARIN INFORMATION Please continue your present dose of Warfarin. Your INR today is: 2.1 Medication regimen: You will be discharged on warfarin. Warfarin is a blood thinner medication. Th e dose you are currently taking may change based on blood levels/INR upon follow -up. It is very important to continue taking the medication as prescribed. Do not change your dose unless instructed by a healthcare professional. Warfarin r equires monitoring of blood levels/INR on a regular basis. You should tell your healthcare professionals that you take warfarin. Follow-up: Follow-up on all scheduled appointments. Warfarin dosing may change based on yo ur blood level/INR. If not done already, you will want to schedule an appointme nt after discharge to follow-up on your blood levels/INR. You may need to follo w-up multiple times during the first several weeks after hospital discharge. Drug Interactions: Talk with your healthcare professional prior to starting or stopping any medicat ions. This includes prescription, [id number], natural supplements, vitami ns, and minerals. Many medications may increase or decrease your blood level/IN R. Dietary Advice: Certain foods with vitamin K may alter the effects of warfarin. Green, leafy ve getables (examples: broccoli, spinach, kale) are some vegetables that may change blood levels/INR. It is important to keep a consistent diet. Avoid any major changes in diet when taking warfarin. Please notify a health professional befor e changing your eating habits. Adverse Reactions: The most common reaction seen with warfarin is an increased risk of bleeding. B ruising may also be a common occurrence while taking this medication. Reasons to go to the emergency department: *Falling/hitting your head, with periods of headaches, vision changes, dizziness , loss of consciousness *Heavy pressure on your chest, difficulty breathing, shortness of breath. This may be a sign of a clot in your lungs. *Blood-tinged vomiting, or what looks like coffee-grounds. This may be a sign o f a stomach bleed. *Bright red urine. This may be a sign of a bleed in your bladder. *Extreme temperature changes, swelling, and pain in your thighs. This may be a sign of a clot in your legs. Additional Discharge Instructions Some of the fatigue you are noting is likely related to untreated sleep apnea. W e recommend talking to Dr. Roger about a repeat sleep study. Please have a CBC drawn on Saturday. DEVICE EVALUATION - PPM Standing Status: Future Standing Exp. Date: 03/22/16 Already scheduled. Plan is to reduce rate to 70 bpm at this appt. Scheduling Priority: Routine Current Discharge Medication List CONTINUE these medications which have NOT CHANGED Details acetaminophen (TYLENOL) 500 mg tablet Take 1,000 mg by mouth every 6 hours as ne eded for Pain. PRESCRIPTION TYPE: Historical Med CALCIUM CARBONATE/VITAMIN D3 (CALCIUM + D PO) Take 1 Tab by mouth twice daily. PRESCRIPTION TYPE: Historical Med CARBOXYMETHYLCELLULOSE SODIUM (REFRESH OP) Place 2 Drops into or around eye(s) a s Needed. PRESCRIPTION TYPE: Historical Med fish oil /omega-3 fatty acids (SEA-OMEGA) 340/1000 mg capsule Take 1 Cap by mout h daily. PRESCRIPTION TYPE: Historical Med furosemide (LASIX) 80 mg tablet Take 80 mg by mouth every morning. PRESCRIPTION TYPE: Historical Med levothyroxine (SYNTHROID) 50 mcg tablet Take 50 mcg by mouth every morning. PRESCRIPTION TYPE: Historical Med lovastatin(+) (MEVACOR) 20 mg tablet Take 20 mg by mouth at bedtime daily. PRESCRIPTION TYPE: Historical Med potassium chloride SR (K-DUR) 20 mEq tablet Take 20 mEq by mouth daily. PRESCRIPTION TYPE: Historical Med VIT C/VIT E/LUTEIN/MIN/OMEGA-3 (OCUVITE PO) Take 1 Tab by mouth daily. PRESCRIPTION TYPE: Historical Med warfarin (COUMADIN) 2.5 mg tablet Take 2.5 mg by mouth daily. 2.5 everyday, 5 mg Saturday/ PRESCRIPTION TYPE: Historical Med STOP taking these medications digoxin (LANOXIN) 125 mcg tablet diltiazem CD (CARDIZEM CD) 120 mg capsule metoprolol (LOPRESSOR) 50 mg tablet Future Appointments Date Time Provider Department Center 04/28/2015 8:00 AM [facility] 04/28/2015 8:30 AM Obi Landry MD [facility] Pending items needing follow up: CBC in 2 days Signed: Marion Mendoza MD 03/23/2015 cc: Primary Care Physician: Cesario Lobato Verified Referring physicians: Additional provider(s): documented in this encounter Medications at Time of Discharge [...] Saturday/ day documented as of this encounter Progress Notes * Liana Martinez, MACK - 03/23/2015 9:30 AM CDT Subjective: Eager for discharge. Denies dizziness, chest pain, shortness of cruzito . BP 111/73 mmHg | Pulse 90 | Temp(Src) 36.4 C (97.5 F) | Ht 1.6 m (5' 3") | W t 150.8 kg (332 lb 7.3 oz) | BMI 58.91 kg/m2 | SpO2 98% Gen: Alert and oriented. Sitting up in chair. In NAD. CV: RRR; no M/G/R Resp: CTA bilaterally; respirations even and unlabored. Ext: Lymphedema lower extremities. Right groin access site soft and dry. Skin: [place], warm and dry. Labs: Plt count is 80,000 (240,000 pre procedure), H/H stable. INR is 2.1. Tele: V-paced 90 bpm Plan: OK for discharge home after rate decreased to 80 bpm. F/U CBC on Saturday, 03/25, to f/u on thrombocytopenia. Metoprolol, Digoxin, and Diltiazem stopped. Will consider adding DANIEL inhibitor i f BP elevated off these medications. Repeat sleep study recommended. F/U with Dr. Landry 04/28/15 with device check. * Marion Mendoza MD - 03/23/2015 8:33 AM CDT Progress Note Today's Date: 03/23/2015 Admission Date: 03/22/2015 Admission Diagnosis: atrial fibrillation Atrial fibrillation LOS: 1 day Principal Problem: Paroxysmal atrial fibrillation Active Problems: Hypertension Morbid obesity with BMI of 50.0-59.9, adult Obstructive sleep apnea Chronic anticoagulation, on warfarin Assessment/Plan: Rhoda Leyva is a 75 y.o. female with a history of permanent afib with p oor rate control and hence was admitted for AV luís ablation. -The procedure went well. Groin looks good. Will bring down the pacer rate to 80 per min. Will discontinue her av luís blocking meds. -She does have thrombocytopenia. But no bleeding. We will follow up with an outpatient repeat platelet count on Saturday. SSS - has a dual chamber PPM in place. PEripheral volume overload - on lasix Hypothyroidism - cont synthroid KAVITA by her report - counselled her to get rechecked and be fitted Code Status: Full Code Patient was seen and discussed with Dr. Landry Subjective: Slept well and is feeling better. ROS: Pt denies headaches, lightheadedness, fevers, chills, chest pain, cough, SO B, N/V, constipation, diarrhea, paresthesias. Objective: MEDS furosemide 80 mg Oral QAM8 levothyroxine 50 mcg Oral QAM8 potassium chloride SR 20 mEq Oral QDAY IV MEDS sodium chloride 0.45 % infusion 20 mL/hr at 03/22/15 0648 Prn acetaminophen Q4H PRN, aluminum/magnesium hydroxide Q4H PRN, docusate QDAY PRN, lidocaine PF PRN, milk of magnesia (CONC) Q6H PRN, nitroglycerin Q5 MIN TN N, ondansetron Q6H PRN, temazepam QHS PRN HOME MEDS No current facility-administered medications on file prior to encounter. Current Outpatient Prescriptions on File Prior to Encounter Medication Sig Dispense Refill acetaminophen (TYLENOL) 500 mg tablet Take 1,000 mg by mouth every 6 hours a s needed for Pain. CALCIUM CARBONATE/VITAMIN D3 (CALCIUM + D PO) Take 1 Tab by mouth twice lucia y. CARBOXYMETHYLCELLULOSE SODIUM (REFRESH OP) Place 2 Drops into or around eye( s) as Needed. digoxin (LANOXIN) 125 mcg tablet Take 0.125 mg by mouth at bedtime daily. diltiazem CD (CARDIZEM CD) 120 mg capsule Take 120 mg by mouth every morning . fish oil /omega-3 fatty acids (SEA-OMEGA) 340/1000 mg capsule Take 1 Cap by mouth daily. furosemide (LASIX) 80 mg tablet Take 80 mg by mouth every morning. levothyroxine (SYNTHROID) 50 mcg tablet Take 50 mcg by mouth every morning. lovastatin(+) (MEVACOR) 20 mg tablet Take 20 mg by mouth at bedtime daily. metoprolol (LOPRESSOR) 50 mg tablet Take 1.5 Tabs by mouth twice daily. 270 Tab 3 potassium chloride SR (K-DUR) 20 mEq tablet Take 20 mEq by mouth daily. VIT C/VIT E/LUTEIN/MIN/OMEGA-3 (OCUVITE PO) Take 1 Tab by mouth daily. warfarin (COUMADIN) 2.5 mg tablet Take 2.5 mg by mouth daily. 2.5 everyday, 5 mg Saturday/ Current Vitals: Vitals 24hr Range: Hemodynamics BP: 111/73 mmHg (03/23 648) Temp: 36.4 C (97.5 F) (03/23 648) Pulse: 90 (03/23 0800) Respirations: 16 PER MINUTE (03/23 648) SpO2: 98 % (03/23 648) O2 Delivery: None (Room Air) (03/23 648) SpO2 Pulse: 91 (03/22 1800) BP: (61-132)/(46-84) Temp: [36.4 C (97.5 F)-37 C (98.6 F)] Pulse: [89-94] Respirations: [15 PER MINUTE-23 PER MINUTE] SpO2: [95 %-99 %] O2 Delivery: [-] Physical exam: General Appearance: Alert, cooperative, no distress. Head: Normocephalic, without obvious abnormality, atraumatic Neck: no JVD; no lymphadenopathy Eyes: Conjunctivae/corneas clear. PERRL, EOMs intact. Lungs: Clear breath sounds bilaterally. Heart: Regular rate and rhythm, S1, S2 normal, no murmur, rub, or gallop Abdomen: Soft, non-tender. Bowel sounds normal. No masses. No organomegaly. Extremities: Atraumatic, no cyanosis, no edema. Pulses: +2 pulse in both extremities. Neurologic: CNII - XII grossly intact; no gross focal deficits LABS: Recent Labs 03/23/15438 NA 137 K 3.9 CL 104 CO2 25 GAP 8 BUN 18 CR 0.88 GLU 103* CA 9.2 Recent Labs 03/22/15 0630 03/23/159 WBC -- 7.7 HGB -- 14.9 HCT -- 44.2 PLTCT -- 80* INR 2.2* 2.1* Estimated Creatinine Clearance: 82.5 mL/min (based on Cr of 0.88). Filed Vitals: 03/17/15 0842 03/22/15 0633 Weight: 151.955 kg (335 lb) 150.8 kg (332 lb 7.3 oz) No results for input(s): PHART, PO2ART in the last 72 hours. Invalid input(s): PC02A Glucose: 103 (03/23/15 0439) POC Glucose (Download): 100 (03/23/15 0648) Resulted Micro Last 72 Hrs No results found Cardiographics: ECG: Afib V paced Telemetry:V paced Marion Mendoza MD EP Fellow Pager: [phone] * Robina Elias RN - 03/17/2015 9:02 AM CDT Pt seen in pac for pre op testing. Labs drawn as ordered.. ekg on chart. Pt s een by RUFUS Guerra. Medication review and instructions provided by pharmd. documented in this encounter H&P Notes * Myranda Lockett APRN-C - 03/22/2015 7:30 AM CDT Patient presents for procedure. Please see History and Physical copied below fr om date of service 03/08/2015. SHAHEEN Becerra Progress Notes Obi Landry MD at 03/08/15 0752 Date of Service: 03/08/2015 Rhoda Leyva is a 75 y.o. female. HPI I had the pleasure of seeing your patient Rhoda Leyva for initial Elect rophysiolgy Consultation in the [facility] as a part of the [facility] [place] office today regarding her persistent and rapid AFIB. She is typically followed and was referred by my colleague Dr. Murrieta, her prima stock house worker in [place], [place]. Ms. Leyva is an exceptionally pleasant 75 y.o. female, who is accompanied by h er equally pleasant 3 daughters. Her PMHx briefly includes: Persistent AFIB with RVR, Chronic Anticoagulation, SS S, S/P [employer] MRI Compatible DDDR PPM implant 01/01/15, Normal LV Function by E cho by Dr. Murrieta 01/2014, Non-obstructive CAD by Cath by Dr. Murrieta in 2006 afte r Thallium suggested inferior revers., HTN, HLD, Hypothyroidism, OSAS, Nonobstru ctive Carotid Artery disease by duplex 2012 in [facility].and Obesity. Note--I have some, but not all records from Dr. Murrieta's office. Her Hx of AFIB dates back at least 5 years ago. She had been on Amiodarone in past but hasd marked SE or intolerances. She has had CVRTs inn the past. She b y pt. Report has a markedly dilated LA. By their report 10/2014 At [facility]she was CVRT'd but did not stay in N SR. 01/2015, Dr. Murrieta again considered CVRT to restore NSR but ERIKA demonstrated JUAN LUIS clot Dr. Murrieta had been pursuing V-rate control and she had SBRAD and SSS with slow V-rates of AFIB as well as tachy. So he placed a DDDR PPM. However, despite Meto prolol, Diltiazem and most recently Digoxin. With recent JUAN LUIS clot and her markedly dilated LA, I suspected that Dr. Murrieta th ought the likelihood of maintaining NSR would be low. She was also on 3 rate con trolling meds yet still had RVR. Therefore she was referred for EP Consultation. IN PRESENTATION TODAY, she STATES that She has Sxs of fatigue, tachypalpitations and MORRISON. She denies PND or orthopnea. No LHedness. But + LE edema which does not resolve by morning. She denies CP. She states she has been in AFIB since at least 2014, but over the years has been more in AFIB vs. NSR. ASSESSMENT AND PLAN: --Persistent with plan on Permanent Atrial Fibrillation (PAFIB): We had a length y discussion regarding atrial fibrillation, the pathophysiology of Atrial Fibril lation, the mechanism, and therapeutic options. We discussed what I call the 3 R's: The Rhythm being abnormal; the Rate being Ra pid; and the Risk of stroke. Per Dr. Murrieta's description her LA is too large to likely maintain NSR, so anti cipate we will accepting her AFIB as Permanent. --Rapid V-Rate of AFIB: -for now Increase Metoprolol to 75 mg BID (1.5 tabs) -However, I do not anticipate she will tolerate further titration of meds by SBP or Sxs. -Therefore I recommended pursuing an AVN RFA resulting in CHB with minimal to no escape rhythm. -We, the patient, her 3 daughters and I had over an 60 minutes just of dialogue about AFIB, etc, as above and the recommendation to pursue AVN RFA. -Procedures/risks/rationale/options/benefits discussed with patient in detail an d questions answered. As noted, her daughters were also present. All expressed a n understanding of the procedure and risks and wish to proceed. -We will likely stop diltiazem and digoxin post AV node RFA and possibly even me toprolol--unless she needs it for HTN control or some other reason. --Her other medical problems are per Dr. Murrieta and her PMD. Ms. Leyva was educated regarding plan of care. She was instructed to call our office with any questions or concerns, as well as to notify us of any new or wor sening symptoms. She verbalized understanding. I appreciate the opportunity to participate in the care of your patient. Please do not hesitate to contact me directly if you have any questions or furth er insights into her care. I have scheduled her follow-up with me in one month(s ) post procedure. Vitals Filed Vitals: 03/08/15 0751 03/08/15 0803 BP: 110/72 120/80 Pulse: 123 Height: 1.6 m (5' 2.99") Weight: 153.633 kg (338 lb 11.2 oz) Body mass index is 60.01 kg/(m^2). Past Medical History Patient Active Problem List Diagnosis Date Noted Paroxysmal atrial fibrillation 03/03/2015 Edema 03/03/2015 Hypertension 03/03/2015 Hyperlipidemia 03/03/2015 Obesity 03/03/2015 Arthritis 03/03/2015 Bilateral carotid artery stenosis 03/03/2015 CHF (congestive heart failure) 03/03/2015 02/15/2014- echo: EF: 60% CAD (coronary artery disease) 03/03/2015 Hypothyroid 03/03/2015 Left ventricular hypertrophy 03/03/2015 Obstructive sleep apnea 03/03/2015 S/P cholecystectomy 03/03/2015 Review of Systems Constitution: Positive for weakness, malaise/fatigue and weight gain. HENT: Positive for congestion, hoarse voice and stridor. Eyes: Positive for blurred vision and vision loss in right eye. Cardiovascular: Positive for dyspnea on exertion, irregular heartbeat, leg swell ing and palpitations. Respiratory: Positive for cough, shortness of breath, snoring and sputum product ion. Skin: Positive for nail changes and dry skin. Musculoskeletal: Positive for arthritis and muscle weakness. Gastrointestinal: Positive for diarrhea, excessive appetite, flatus and hemorrho ids. Neurological: Positive for excessive daytime sleepiness and loss of balance. Allergic/Immunologic: Positive for environmental allergies and hives. All other systems reviewed and are negative. Physical Exam Const: she is in no acute distress, resting comfortably. Neuro: Patient is alert and oriented. Skin: is warm and dry HEENT: PERRL, sclera non-icteric, no xanthalasmas noted, mucus membranes are tra[address] [place]. Neck: without obvious palpable thyromegally or thyroid bruit Resp: Clear to auscultation bilaterally, with no rales, rhonchi, or wheezes. Cardiovascular: No evidence of increased jugular venous pressure, carotids are 2 + /4+ equal bilaterally, without obvious bruit. Irregularly irregular rhythm, S1 , S2. 2/6 systolic murmur noted at the RUSB-->LLSB. No heaves, thrills, rubs. PMI is not palpated GI: obese, soft and non-tender Extremities: With 1+ pretibial and pedal pitting peripheral edema. Distal pulses are intact but difficult to palpate. Device: is in the left infraclavicular region and well healed. Cardiovascular Studies ECG today shows AFIB with RVR with average rate of 123 bpm with STT changes c/w Digoxin effect. Full device check performed with reprogramming which I have extensively reviewed . Changes, if done, as discussed below and is detailed in other dictation/note. She has been in persistent AFIB since August and her V-rates have been over 100 bpm > 50% of the time since 10/21/14. She has been V-paced 9% of the time. Current Medications (including today's revisions) acetaminophen (TYLENOL) 500 mg tablet Take 1,000 mg by mouth every 6 hours as needed for Pain. CALCIUM CARBONATE/VITAMIN D3 (CALCIUM + D PO) Take 1 Tab by mouth twice da eladia. CARBOXYMETHYLCELLULOSE SODIUM (REFRESH OP) Place 2 Drops into or around ey e(s) as Needed. digoxin (LANOXIN) 125 mcg tablet Take 0.125 mg by mouth at bedtime daily. diltiazem CD (CARDIZEM CD) 120 mg capsule Take 120 mg by mouth every morni ng. fish oil /omega-3 fatty acids (SEA-OMEGA) 340/1000 mg capsule Take 1 Cap b y mouth daily. furosemide (LASIX) 80 mg tablet Take 80 mg by mouth every morning. levothyroxine (SYNTHROID) 50 mcg tablet Take 50 mcg by mouth every morning . lovastatin(+) (MEVACOR) 20 mg tablet Take 20 mg by mouth at bedtime daily. metoprolol (LOPRESSOR) 50 mg tablet Take 1.5 Tabs by mouth twice daily. potassium chloride SR (K-DUR) 20 mEq tablet Take 20 mEq by mouth daily. VIT C/VIT E/LUTEIN/MIN/OMEGA-3 (OCUVITE PO) Take 1 Tab by mouth daily. warfarin (COUMADIN) 2.5 mg tablet Take 2.5 mg by mouth daily. 2.5 everyday , 5 mg Saturday/ Allergies Allergen Reactions Adhesive Tape (Rosins) SEE COMMENTS Pulls skin off. Tolerates paper tape Hydrocodone NAUSEA ONLY Lopid [Gemfibrozil] UNKNOWN Rhabdomyosis Past Surgical History Procedure Laterality Date Pacemaker insertion 2011 Cataract removal Bilateral Lap cholecystectomy 2007 Hx knee surgery Bilateral History Social History Marital Status: Spouse Name: N/A Number of Children: N/A Years of Education: N/A Occupational History Not on file. Social History Main Topics Smoking status: Never Smoker Smokeless tobacco: Never Used Alcohol Use: No Drug Use: No Sexual Activity: Not on file Other Topics Concern Not on file Social History Narrative Family History Problem Relation Age of Onset Pacemaker Mother Heart Failure Mother Pacemaker Father documented in this encounter Miscellaneous Notes * Procedures (Immed Post or Bedside) - Marion Mendoza MD - 03/22/2015 9:30 AM CDT Procedure: AV Node ablation Moderate sedation Indication: Permanent afib with RVR with difficult to achieve rate control despi te metoprolol and diltiazem and digoxin with symptoms. Access: 8 F right femoral vein. Complications: Nil Notes: She did have escape rhythm of 1800 msec CL post AV luís ablation. Plan: Will have her in VVIR mode at 90 bpm overnight and bring her down to 80 bpm at t he time of discharge tomorrow. A month from now, we will reassess her in clinic and bring her rates down to 70. Can hold lopressor, digoxin and diltiazem for now. IF BP is uncontrolled, we can add an DANIEL inhibitor (would like to avoid calcium channel idania due to peripheral edema and beta idania due to underlying fatig ue). Recommended that she obtain a CPAP machine for treatment of KAVITA. * Anesthesia Pre-Op - Phoebe Gilmore MD - 03/17/2015 8:52 AM CDT Pre-Operative Anesthesia Assessment Admission Date: (Not on file) LOS: none Assessment: ASA III Plan: General Chief Complaint/ Planned Procedure: Atrial fibrillation/AVN RFA NPO :for greater than 8 hours Active Problems: * No active hospital problems. * Staff Surgeon: Gris Admission Status: A.M. Admission/Same Day Admission Surgery Date: 03/22/15 Patient location: [facility] Historian: Patient and Old Record Past Medical History Diagnosis Date Macular degeneration Hyperlipidemia Congestive heart disease Coronary artery disease Atrial fibrillation Past Surgical History Procedure Laterality Date Pacemaker insertion 2011 Cataract removal Bilateral Lap cholecystectomy 2007 Hx knee surgery Bilateral Complications: None Prior Anesthetic Types: General Family Anesthesia HX: None Allergies Allergen Reactions Adhesive Tape (Rosins) SEE COMMENTS Pulls skin off. Tolerates paper tape Hydrocodone NAUSEA ONLY Lopid [Gemfibrozil] UNKNOWN Rhabdomyosis Medications For Outpatients and Same Day Surgery No current facility-administered medications for this encounter. Current Outpatient Prescriptions Medication Sig acetaminophen (TYLENOL) 500 mg tablet Take 1,000 mg by mouth every 6 hours a s needed for Pain. CALCIUM CARBONATE/VITAMIN D3 (CALCIUM + D PO) Take 1 Tab by mouth twice lucia y. CARBOXYMETHYLCELLULOSE SODIUM (REFRESH OP) Place 2 Drops into or around eye( s) as Needed. digoxin (LANOXIN) 125 mcg tablet Take 0.125 mg by mouth at bedtime daily. diltiazem CD (CARDIZEM CD) 120 mg capsule Take 120 mg by mouth every morning . fish oil /omega-3 fatty acids (SEA-OMEGA) 340/1000 mg capsule Take 1 Cap by mouth daily. furosemide (LASIX) 80 mg tablet Take 80 mg by mouth every morning. levothyroxine (SYNTHROID) 50 mcg tablet Take 50 mcg by mouth every morning. lovastatin(+) (MEVACOR) 20 mg tablet Take 20 mg by mouth at bedtime daily. metoprolol (LOPRESSOR) 50 mg tablet Take 1.5 Tabs by mouth twice daily. potassium chloride SR (K-DUR) 20 mEq tablet Take 20 mEq by mouth daily. VIT C/VIT E/LUTEIN/MIN/OMEGA-3 (OCUVITE PO) Take 1 Tab by mouth daily. warfarin (COUMADIN) 2.5 mg tablet Take 2.5 mg by mouth daily. 2.5 everyday, 5 mg Saturday/ Social History Substance Use Topics Smoking status: Never Smoker Smokeless tobacco: Never Used Alcohol Use: No Review of Systems Airway: Denies nasal congestion or epistaxis. Denies loose or missing teeth. De nies difficulty opening mouth fully, TMJ, locking/clicking of jaw Negative Cardiovascular: HTN, Beta Idania, last dose 7 AM, Exercise intolerance <4 METS d/t MORRISON and chronic atrial fibrillation with enlarged LA with clot per pat leung report found on ERIKA in January at [facility] Pulmonary: Cough, MORRISON and KAVITA, not using CPAP Sleep study done 4 yrs ago that was not completed, told to repeat, but she hasn't done that. GI: Obesity and hx of cholecystectomy with sepsis in 2007 per pt report gained weight in the last year 30 llbs... Endocrine: Thyroid Hypothyroid and weight gain of 30 lbs in last year Heme/Onc: LA clot and hx of transfusion in 2007 Renal: hx of rhabdomyolosis in 2007. Lopid stopped. Kidney function WNL Neurological: Negative Musculoskeletal: Arthritis and hx of bilateral TKA Vital Signs (Last Filed in 24 hours) BP: 127/63 mmHg (03/17 842) Temp: 36.6 C (97.9 F) (03/17 842) Pulse: 89 (03/17 842) Respirations: 16 PER MINUTE (03/17 842) SpO2: 95 % (03/17 842) O2 Delivery: None (Room Air) (03/17 842) Height: 160 cm (63") (03/17 842) Physical Exam Rhoda Leyva is a 75 y.o. female. Weight: 151.955 kg (335 lb) Height: 160 cm (63") BMI (Calculated): 59.34 Airway: Mallampati Class III, Normal thyromental distance, Good neck ROM, Teeth state of repair good and large neck circumference Cardiovascular:Heart sounds: irregular rate and rhythm Pulmonary: Breath sounds: clear, equal bilaterally and Respirations regular and unlabored GI/Metabolic:Exam deferred Neurological:Alert and Oriented Diagnostic Tests Hematology: Lab Results Component Value Date HGB 14.8 03/14/2015 HCT 44.9 03/14/2015 PLTCT 240 03/14/2015 WBC 6.9 03/14/2015 General Chemistry: Lab Results Component Value Date NA 136 03/14/2015 K 4.1 03/14/2015 BUN 14 03/14/2015 CR 0.8 03/14/2015 MG 2.0 03/14/2015 Coagulation: Lab Results Component Value Date INR 2.7 03/14/2015 Labs: T&S today; 03/14/15 labs reviewed EKG: Atrial fibrillation CXR: Not obtained Consults: Not obtained Assessment by: Bianca Roman APRN Pager Date: 03/17/2015 No anesthesia associated with this assessment. CAMP documented in this encounter Plan of Treatment Not on filedocumented as of this encounter Procedures Comments Procedure Name Priority Date/Time Associated Diagnosis PROCEDURES-SCAN 05/01/2015 3:56 PM CDT PROCEDURES-SCAN 03/25/2015 9:38 AM CDT PROCEDURES-SCAN 03/25/2015 9:38 AM CDT PROCEDURES-SCAN 03/24/2015 3:31 PM CDT PROCEDURES-SCAN 03/24/2015 3:30 PM CDT DEVICE EVALUATION - PPM Routine 03/23/2015 9:56 AM CDT POC GLUCOSE 03/23/2015 6:48 AM CDT PROTIME INR (PT) Routine 03/23/2015 4:39 AM CDT CBC Routine 03/23/2015 4:39 AM CDT BASIC METABOLIC PANEL Routine 03/23/2015 4:39 AM CDT ECG 12-LEAD Routine 03/22/2015 9:47 AM CDT INTRACARDIAC CATHETER Routine 03/22/2015 ABLATION ATRIOVENTRICULAR 8:17 AM CDT NODE WITH/ WITHOUT TEMPORARY PACEMAKER PLACEMENT PROTIME INR (PT) STAT 03/22/2015 6:30 AM CDT CONSULT IV THERAPY TEAM Routine 03/22/2015 6:21 AM CDT documented in this encounter Results * CBC [...] Address City/State/Zipcode Phone Number OTHER OUTSIDE LAB * DEVICE EVALUATION - PPM (03/23/2015 9:56 AM CDT) Date of Last OTHER OUTSIDE Remote Check LAB Next Remote OTHER OUTSIDE Check Due LAB Enrollment Date OTHER OUTSIDE LAB Date of OTHER OUTSIDE baseline remote LAB transmission AT/AF Daily OTHER OUTSIDE [place] Hours LAB Average Vent OTHER OUTSIDE Rate during LAB AT/AF #BPM Average Vent OTHER OUTSIDE Rate During LAB AT/AF #Hours Remote No OTHER OUTSIDE Monitoring? LAB Wireless No OTHER OUTSIDE Generator LAB Daily [place] OTHER OUTSIDE Threshld Alert? LAB Average OTHER OUTSIDE Venticular Rate LAB AT/AF On/Off VF OTHER OUTSIDE Detection/Thera LAB py Off Date of Last OTHER OUTSIDE ICM Evaluation LAB Next ICM Check OTHER OUTSIDE Due LAB HF Patient No OTHER OUTSIDE LAB Date of Last 03/23/2015 OTHER OUTSIDE Programming LAB Next OTHER OUTSIDE Programming LAB Check Due Date of Last 03/23/2015 OTHER OUTSIDE Interrogation LAB Device Mode VVIR [...] OTHER OUTSIDE Status LAB Device juan jose Rogre MD OTHER OUTSIDE Implanted By LAB Advisory [...] OUTSIDE Indicator LAB Generator [employer] OTHER OUTSIDE Door To Door Selling Distributor LAB Generator OTHER OUTSIDE Door To Door Selling Distributor LAB Other Generator Model [id number] revo OTHER OUTSIDE # LAB Generator [id number] OTHER OUTSIDE Serial # LAB Generator 01-02-2012 OTHER OUTSIDE Implnat Date LAB Atrial Lead [employer]onic OTHER OUTSIDE Door To [employer] Selling Distributor LAB Atrial Lead OTHER OUTSIDE Door To Door Selling Distributor LAB Other Atrial Lead [id number] OTHER OUTSIDE Model # LAB Atrial Lead OTHER OUTSIDE Serial # LAB Atrial Lead 01-02-2012 OTHER OUTSIDE Implant Date LAB RV Lead OTHER OUTSIDE Door To Door Selling Distributor LAB RV Lead OTHER OUTSIDE Door To Door Selling Distributor LAB Other RV Lead Model # [id number] OTHER OUTSIDE LAB RV Lead Serial OTHER OUTSIDE # LAB RV Lead Implant 01-02-2012 OTHER OUTSIDE Date LAB LV Lead OTHER OUTSIDE Door To Door Selling Distributor LAB LV Lead OTHER OUTSIDE Door To Door Selling Distributor LAB Other LV Lead Model # OTHER OUTSIDE LAB LV Lead Serial OTHER OUTSIDE # LAB LV Lead Implant OTHER OUTSIDE Date LAB Other Implant OTHER OUTSIDE Info LAB Pacemaker No OTHER OUTSIDE Dependant LAB Generator No OTHER OUTSIDE Investigational LAB Atrial Lead No OTHER OUTSIDE Investigational LAB RV Lead No OTHER OUTSIDE Investigational LAB LV Lead OTHER OUTSIDE Investigational LAB Device Type VVI-PM OTHER OUTSIDE LAB Device OTHER OUTSIDE Reprogram LAB Comments Initial Rhythm OTHER OUTSIDE LAB Underlying OTHER OUTSIDE Rhythm LAB -VS% OTHER OUTSIDE LAB -PHYSICIAN ASSISTANT CERTIFIED% OTHER OUTSIDE LAB -VS% OTHER OUTSIDE LAB AP-PHYSICIAN ASSISTANT CERTIFIED% OTHER OUTSIDE LAB Initial Rhythm OTHER OUTSIDE LAB Device Function OTHER OUTSIDE WNL LAB Device OTHER OUTSIDE Reprogram LAB Programming? Yes OTHER OUTSIDE LAB Interrogation? Yes OTHER OUTSIDE LAB Device Check by Yes OTHER OUTSIDE Rep LAB Specimen Narrative Performed At OTHER OUTSIDE LAB 03/23/2015 - Device checked in the hospital by MDT rep: Evita Franz post AVN Ablation.Please see scanned HRM Data Sheet for further review and changes made as needed. Performing Organization Address City/State/Zipcode Phone Number OTHER OUTSIDE LAB * POC GLUCOSE (03/23/2015 6:48 AM CDT) Glucose, POC 100 70 - 100 MG/DL MAIN LAB Specimen Performing Organization Address City/State/Zipcode Phone Number MAIN LAB [address] [place] [address] * PROTIME INR (PT) (03/23/2015 4:39 AM CDT) INR 2.1 (H) 0.8 - 1.2 [facility] MAIN LAB Specimen Blood Performing Organization Address [facility] Phone Number MAIN LAB [address] [place] [address] * BASIC METABOLIC PANEL (03/23/2015 4:39 AM CDT) Pathologist [facility] Sodium 137 137 - 147 MMOL/L [facility] MAIN LAB Potassium 3.9 3.5 - 5.1 MMOL/L [facility] MAIN LAB Chloride 104 98 - 110 MMOL/L [facility] MAIN LAB CO2 25 21 - 30 MMOL/L [facility] MAIN LAB Anion Gap 8 3 - 12 [facility] MAIN LAB Glucose 103 (H) 70 - 100 MG/DL [facility] MAIN LAB Blood Urea 18 7 - 25 MG/DL [facility] MAIN LAB Nitrogen Creatinine 0.88 0.4 - 1.00 MG/DL [facility] MAIN LAB Calcium 9.2 8.6 - 10.3 MG/DL [facility] MAIN LAB eGFR Non >60 >60 ML/MIN/1.73 SQM [facility] MAIN LAB Comment: [place] The eGFR is not validated for use in drug dosing adjustments.Continue to use estimated creatinine clearance per dosing reference text.Please contact the Clinical Pharmacist for questions. eGFR >60 >60 ML/MIN/1.73 SQM [facility] MAIN LAB [place] Comment: The eGFR is not validated for use in drug dosing adjustments.Continue to use estimated creatinine clearance per dosing reference text.Please contact the Clinical Pharmacist for questions. Specimen Blood Performing Organization Address [facility] Phone Number [facility] [address] [place] [address] * CBC (03/23/2015 4:39 AM CDT) Pathologist [facility] White Blood 7.7 4.5 - 11.0 K/UL MAIN LAB Cells RBC 4.82 4.0 - 5.0 M/UL MAIN LAB Hemoglobin 14.9 12.0 - 15.0 GM/DL [facility] MAIN LAB Hematocrit 44.2 36 - 45 % [facility] MAIN LAB MCV 91.7 80 - 100 FL [facility] MAIN LAB MCH 30.8 26 - 34 PG [facility] MAIN LAB MCHC 33.6 32.0 - 36.0 G/DL [facility] MAIN LAB RDW 13.9 11 - 15 % [facility] MAIN LAB Platelet Count 80 (L) 150 - 400 K/UL [facility] MAIN LAB MPV 10.8 7 - 11 FL MAIN LAB Specimen Blood Performing Organization Address City/[facility] Phone Number MAIN LAB [address] [place] [address] * EP STUDY (03/22/2015 8:17 AM CDT) Specimen Impressions Performed At : OTHER OUTSIDE LAB - Persistant AFib uncontrolled/rapid Ventricular Response. - Successful Atrioventricular junction ablation--AVN RFA - Resulting underlying Rhythm of AFIB with Complete Heart Block and Junctional escape rhythm at 34 bpm. - Prior placed PPM functioning well post ablation and programmed overnight to 90 ppm. - Pt. Tolerated procedure well. - Will discontinue all her AV luís blocking agents. Narrative Performed At PROCEDURE: OTHER OUTSIDE LAB -AV Node RFA with prior place PPM in place -RA And His bundle Recording -AV Node Ablation -Moderate sedation. -Dual chamber PPM in situ STAKES PLAYER:Obi Landry M.D. FELLOW:Marion Mendoza MD INDICATION FOR PROCEDURE: Persistent atrial fibrillation with rapid rates intolerant refractory to rate controlling medications and markedly dilated biatria. Poor rate control despite being on lopressor, digoxin and diltiazem all together. PRESENTING RHYTHM: AFIB Dual chamber PPM in situ CONSENT: The risks, benefits, indications and alternatives to the procedure were explained in detail to the patient and available family members prior to the procedure. The patient and available family members expressed a good understanding of the procedure and risks. All questions asked were answered and consent was obtained. SEDATION: The patient was transported to the Electrophysiology Laboratory in a non-sedated state and was placed supine on the fluoroscopy table. The patient underwent moderate sedation using Versed and Fentanyl administered by a trained Registered Nurse who was supervised by pa. The patient underwent continuous blood pressure, heart rate and O2 saturation monitoring throughout the procedure with supplemental oxygen utilized as needed. ACCESS: The right groin was prepped and draped in a sterile fashion. 0.25% Marcaine was injected into the subcutaneous tissue overlying the right femoral vein. The right femoral vein was accessed using the modified Seldinger technique with placement of sheaths and catheters as described below. CATHETERS: -An 8mm non-irrigated ablation/mapping catheter inserted via an 8 Kenyan in the right femoral vein. DETAILS OF PROCEDURE:Informed consent was obtained, and the patient was brought to the EP lab in a fasting state.She was sterilely prepped and draped in the usual conventional fashion. Femoral venous access was obtained as described with modified Seldinger technique, and a 8-Kenyan short sheath was placed. DEVICE Programming pre RFA-->The pt. Had backup pacing from her ppm in situ at VVI 40 ppm. The ablation catheter was placed in the RA and RA egm recording was done confirming atrial fibrillation present.Then His Bundle/potential recordings were completed. RA EGM showed patient to be in atrial fibrillation. A SJM 8mm tip deflectable ablation catheterwas advanced through the sheath into the right atrium and under the fluoroscopic guidance placed in the area of AV node. First RA and His recordings were obtained.Then ablation was performed.2 RF applications done.The 1st RF application resulted in initial hastening of ventricular rate and then complete heart block with a junctional escape rhythm within 12 seconds of start of application. Additional RF was applied to this area and slightly proximal to this location.Post Ablation the patient had a junctional escape rhythm at 34 bpm when his pacer was inhibited.This appeared to be a stable junctional escape rhythm. Note:The anatomy was distorted with heart being rotated and his bundle location was identified by marching more septally in the BAILEE view. Also, Stable backup RV pacing was present from his prior placed pacemaker. FINAL DEVICE PROGRAMMING: Device Programmed post RFA VVI 90 ppm to decrease to 80 PPM tomorrow and remain at 80 ppm until next clinic follow up. Performing Organization Address City/State/Zipcode Phone Number OTHER OUTSIDE LAB * PROTIME INR (PT) (03/22/2015 6:30 AM CDT) INR 2.2 (H) 0.8 - 1.2 MAIN LAB Specimen Blood Performing Organization Address City/State/Zipcode Phone Number MAIN LAB [address] [place] [address] documented in this encounter Visit Diagnoses Diagnosis Paroxysmal atrial fibrillation (HCC) - Primary Atrial fibrillation Essential hypertension Unspecified essential hypertension Morbid obesity with BMI of 50.0-59.9, adult (HCC) Morbid obesity Obstructive sleep apnea Obstructive sleep apnea (adult) (pediatric) Chronic anticoagulation, on warfarin Long-term (current) use of anticoagulants Thrombocytopenia (HCC) Thrombocytopenia, unspecified Persistent atrial fibrillation (HCC) Atrial fibrillation documented in this encounter Administered Medications Action Date Dose Rate Site Medication Order MAR Action 03/22/2015 8:16 AM CDT 2 g ceFAZolin (ANCEF) IVP 2 g Given 2 g, Intravenous, ONCE, 1 dose, 03/22/15 at 0815, Give pre-op dose in EP lab within 1 hour prior to incision. Give post-op dose 8 hours after pre-op dose. IV PUSH -- RECONSTITUTE each 1 g vial by adding 10 mL 0.9% NACL, for patients 80-115 kg, 03/23/2015 8:25 AM CDT 80 mg furosemide (LASIX) tablet 80 mg Given 80 mg, Oral, EVERY MORNING, First dose on Sat03/23/15 at 0900, Until Discontinued, Admission/Obs/Extended Recovery 03/23/2015 8:25 AM CDT 50 mcg levothyroxine (SYNTHROID) tablet 50 mcg Given 50 mcg, Oral, EVERY MORNING, First dose on Sat03/23/15 at 0900, Until Discontinued, Give 1 hour before a meal. If patient is receiving tube feedings, hold tube feed 1hr before and 1hr after dose., Admission/Obs/Extended Recovery 03/23/2015 7:56 AM CDT 20 mEq potassium chloride SR (K-DUR) tablet 20 Given mEq 20 mEq, Oral, DAILY, First dose on Sat03/23/15 at 0900, Until Discontinued, DO NOT BREAK TABLET OR GRIND GRANULES , Admission/Obs/Extended Recovery 03/22/2015 6:48 AM CDT 20 mL/hr sodium chloride 0.45 % infusion Given - New 1,000 mL, Intravenous, at 20 mL/hr, Bag CONTINUOUS, Starting Sat03/22/15 at 0630, Until Sat03/23/15 at 1228, Admission/Obs/Extended Recovery 03/22/2015 7:51 PM CDT 5 mg warfarin (COUMADIN) tablet 5 mg Given 5 mg, Oral, TONIGHT ONLY, 1 dose, First dose on Sat03/22/15 at 2100, NURSING: Provide patient with warfarin education leaflet and video. Do not give with cranberry juice. NOTE: This is a HIGH ALERT Medication., Admission/Obs/Extended Recovery documented in this encounter
--- OUTSIDE RECORDS SUMMARY | 2019-02-05 07:23 | XMS REPORT | Encounter Summary ---
Author Author [facility] Organization [facility] Address Unknown Phone Unavailable Care Team Providers Care Speech Language Pathologist Travel Name Role Phone Cesario Lobato PCP Robina Elias RN Unavailable Unavailable Nadege Forbes RN Unavailable Unavailable Reason for Visit * Auth/Cert Referred By Contact Referred To Contact Status Reason Specialty Diagnoses / Procedures Ku Pre-Admit [address] [place] [address] Closed Diagnoses atrial fibrillation P rocedures ABLATION: AV NODE Encounter Details Care Team Description Date Type Department Obi Landry MD [address] [facility] [id number] [place] [address] [phone] INTRACARDIAC CATHETER ABLATION ATRIOVENTRICULAR NODE WITH/ WITHOUT TEMPORARY PACEMAKER PLACEMENT 03/22/2015 Surgery [facility] Cardiovascular Labs [address] [place] [address] Social History Date Tobacco Use Types Packs/Day [...] Service: Cardiology-EP Physician Summary completed by: Marion Mendoza MD Reason for hospitalization: PAtient's ventricular rates [...] warfarin Persistent atrial fibrillation Surgical Procedures: AV luís ablation. Patient Disposition: Home Patient instructions/medications: CBC Standing Status: Future Standing Exp. Date: 03/23/16 Please fax results to: [phone] Attn: Dr. Landry Other Activity Restrictions You [...] HOURS (8:00 AM - 4:30 PM): Call [phone] and asked to be transferred to your discharge attending madhavi ji. - AFTER BUSINESS HOURS (4:30 PM - 8:00 AM, on weekends, or holidays): Call [phone] and ask the cinder crusher operator to page the on-call doctor for the discha rge attending physician. Discharging attending physician: OBI LANDRY [[id number]] Cardiac Diet Limiting unhealthy fats and cholesterol [...] home, you may contact a dietitian magalis hernandes . Return Appointment Please keep your previously scheduled appt. to see Dr. Landry at the [facility]. [facility] [address], [address] [place] [address] Provider OBI LANDRY [[id number]] Location [facility] Appointment date: 04/28/2015 Appointment time: 8:00 AM [...] stopping any medicat ions. This includes prescription, lkca-crr-fsmabbl, natural supplements, vitami ns, and minerals. Many [...] Time Provider Department Center 04/28/2015 8:00 AM [facility] PACEMAKER [facility]ACK[facility]M MAC [facility] 04/28/2015 8:30 AM Obi Landry MD [facility] LUCIO AYERS Pending items needing follow up: CBC in [...] as of this encounter Progress Notes * Juan Liana, MACK - 03/23/2015 9:30 AM CDT Subjective: [...] groin access site soft and dry. Skin: Serena, warm and dry. Labs: Plt count is [...] magnesia (CONC) Q6H PRN, nitroglycerin Q5 MIN FL N, ondansetron Q6H PRN, temazepam QHS PRN [...] paced Marion Mendoza MD EP Fellow Pager: [phone] * Robina Elias RN - 03/17/2015 9:02 [...] for initial Elect rophysiolgy Consultation in the [facility] as a part of the [facility] [place] office today regarding her persistent and rapid AFIB. She is typically followed and was referred by my colleague Dr. Murrieta, her prima diesel automotive technician in [place], [place]. Ms. Leyva is an exceptionally pleasant [...] disease by duplex 2012 in [place].and Obesity. Note--I have some, but not all records from Dr. Murrieta's office. Her Hx of AFIB dates back at least 5 years ago. She had been on Amiodarone in past but hasd marked SE or intolerances. She has had CVRTs inn the past. She b y pt. Report has a markedly dilated LA. By their report 10/2014 At [facility]she was CVRT'd but did not stay [...] insertion 2011 Cataract removal Bilateral Lap cholecystectomy 2008 Hx knee surgery Bilateral History Social History [...] Day Admission Surgery Date: 03/22/15 Patient location: [facility] Historian: Patient and Old Record Past Medical [...] 03/17/2015 No anesthesia associated with this assessment. GER HVAC documented in this encounter Plan of Treatment [...] remote LAB transmission AT/AF Daily OTHER OUTSIDE [place] Hours LAB Average Vent OTHER OUTSIDE Rate during LAB AT/AF #BPM Average Vent OTHER OUTSIDE Rate During LAB AT/AF #Hours Remote No OTHER OUTSIDE Monitoring? LAB Wireless No OTHER OUTSIDE Generator LAB Daily [place] OTHER OUTSIDE Threshld Alert? LAB Average OTHER [...] OUTSIDE Indicator LAB Generator Medtronic OTHER OUTSIDE [employer] Administrator LAB Generator OTHER OUTSIDE [employer] Administrator LAB Other Generator Model [id number] revo OTHER OUTSIDE # LAB Generator [id number] OTHER OUTSIDE Serial # LAB Generator 01-02-2012 OTHER OUTSIDE Implnat Date LAB Atrial Lead Medtronic OTHER OUTSIDE [employer] Administrator LAB Atrial Lead OTHER OUTSIDE [employer] Administrator LAB Other Atrial Lead [id number] OTHER OUTSIDE Model # LAB Atrial Lead OTHER OUTSIDE Serial # LAB Atrial Lead 01-02-2012 OTHER OUTSIDE Implant Date LAB RV Lead OTHER OUTSIDE [employer] Administrator LAB RV Lead OTHER OUTSIDE Cisco Administrator LAB Other RV Lead Model # [id number] OTHER OUTSIDE LAB RV Lead Serial OTHER OUTSIDE # LAB RV Lead Implant 01-02-2012 OTHER OUTSIDE Date LAB LV Lead OTHER OUTSIDE Cisco Administrator LAB LV Lead OTHER OUTSIDE [employer] Administrator LAB Other LV Lead Model # OTHER [...] OUTSIDE Rhythm LAB -VS% OTHER OUTSIDE LAB -GRADER MARKER% OTHER OUTSIDE LAB -VS% OTHER OUTSIDE LAB AP-GRADER MARKER% OTHER OUTSIDE LAB Initial Rhythm OTHER OUTSIDE [...] Address City/State/Zipcode Phone Number MAIN LAB [address] [place] [address] * PROTIME INR (PT) (03/23/2015 4:39 AM CDT) INR 2.1 (H) 0.8 - 1.2 [facility] MAIN LAB Specimen Blood Performing Organization Address [facility] Phone Number MAIN LAB [address] [place] [address] * BASIC METABOLIC PANEL (03/23/2015 4:39 AM [...] >60 ML/MIN/1.73 SQM [facility] MAIN LAB Comment: [place] The eGFR is not validated for use in drug dosing adjustments.Continue to use estimated creatinine clearance per dosing reference text.Please contact the Clinical Pharmacist for questions. eGFR >60 >60 ML/MIN/1.73 SQM [facility] MAIN LAB [place] Comment: The eGFR is not validated for use in drug dosing adjustments.Continue to use estimated creatinine clearance per dosing reference text.Please contact the Clinical Pharmacist for questions. Specimen Blood Performing Organization Address [facility] Phone Number MAIN LAB [address] [place] [address] * CBC (03/23/2015 4:39 AM CDT) Pathologist [facility] White Blood 7.7 4.5 - 11.0 K/UL [facility] MAIN LAB Cells RBC 4.82 4.0 - 5.0 M/UL [facility] MAIN LAB Hemoglobin 14.9 12.0 - 15.0 [...] LAB MPV 10.8 7 - 11 FL [facility] MAIN LAB Specimen Blood Performing Organization Address City/[facility]/Zipcode Phone Number MAIN LAB [address] [place] [address] * EP STUDY (03/22/2015 8:17 AM CDT) [...] -Moderate sedation. -Dual chamber PPM in situ TEMPLATE CLERK:Obi Landry M.D. FELLOW:Marion Mendoza MD INDICATION FOR [...] trained Registered Nurse who was supervised by ca. The patient underwent continuous blood pressure, heart [...] non-irrigated ablation/mapping catheter inserted via an 8 Eritrean in the right femoral vein. DETAILS OF PROCEDURE:Informed consent was obtained, and the patient was brought to the EP lab in a fasting state.She was sterilely prepped and draped in the usual conventional fashion. Femoral venous access was obtained as described with modified Seldinger technique, and a 8-Eritrean short sheath was placed. DEVICE Programming pre [...] Organization Address City/State/Zipcode Phone Number MAIN LAB [address] [place] [address] documented in this encounter Visit Diagnoses Not on filedocumented in this encounter Administered Medications Action Date Dose Rate Site Medication Order MAR Action 03/22/2015 8:16 AM CDT 2 g ceFAZolin (ANCEF) IVP 2 g Given 2 g, Intravenous, ONCE, 1 dose, Sat03/22/15 at 0815, Give pre-op dose in EP [...]
--- OUTSIDE RECORDS SUMMARY | 2019-02-05 07:23 | XMS REPORT | Encounter Summary ---
Author Author [facility] Organization [facility] Address Unknown Phone Unavailable Care Team Providers Care Black Ash Burner Operator Name Role Phone Cesario Lobato PCP Robina Elias RN Unavailable Unavailable Nadege Forbes RN Unavailable Unavailable Encounter Details Care Team Description Date Type Department Myranda Lockett APRN-C Forwarding address unknown Left 02/22/2018 03/17/2015 Pre-Admit XDD CARDIOLOGY Orders Only Social History Date Tobacco Use Types Packs/Day [...]
--- OUTSIDE RECORDS SUMMARY | 2019-02-05 07:24 | XMS REPORT | Encounter Summary ---
Author Author [facility] Organization [facility] Address Unknown Phone Unavailable Care Team Providers Care Graduate Assistant Athletic Trainer Name Role Phone Carlos A Roger MD PCP Reason for Visit * Reason Comments Labs Only Encounter Details Care Team Description Date Type Department Zoya Lynch, RN Labs Only 03/14/2015 Documentation [facility] [address] [place] [address] Social History Date Tobacco Use Types Packs/Day Years Used Never Smoker Smokeless Tobacco: Never Used Drinks/Week oz/Week Comments Alcohol Use No Sex Assigned at Date Recorded Not on file Industry Job Start Date Occupation Not on file Not on file Not on file Travel End Travel History Travel Start No recent travel history available. documented as of this encounter Progress Notes * Zoya Lynch, SHANA - 03/14/2015 3:41 PM CDT Quick Note: Stable pre procedure labs documented in this encounter Plan of Treatment Not on filedocumented as of this encounter Procedures Comments Procedure Name Priority Date/Time Associated Diagnosis PROTIME INR (PT) Routine 03/14/2015 CBC Routine 03/14/2015 MAGNESIUM Routine 03/14/2015 BASIC METABOLIC PANEL Routine 03/14/2015 documented in this encounter Results * MAGNESIUM (03/14/2015) Magnesium 2.0 OTHER OUTSIDE LAB Specimen Blood - Blood Narrative Performed At Performing Organization Address City/State/Zipcode Phone Number OTHER OUTSIDE LAB * BASIC METABOLIC PANEL (03/14/2015) Sodium 136 OTHER OUTSIDE LAB Potassium 4.1 OTHER OUTSIDE LAB Chloride OTHER OUTSIDE LAB CO2 OTHER OUTSIDE LAB Blood Urea 14 OTHER OUTSIDE Nitrogen LAB Creatinine 0.8 OTHER OUTSIDE LAB Glucose OTHER OUTSIDE LAB Calcium OTHER OUTSIDE LAB eGFR Non OTHER OUTSIDE LAB Cymro eGFR OTHER OUTSIDE Cymro LAB Anion Gap OTHER OUTSIDE LAB Specimen Blood - Blood Narrative Performed At Performing Organization Address City/State/Zipcode Phone Number OTHER OUTSIDE LAB * PROTIME INR (PT) (03/14/2015) INR 2.7 OTHER OUTSIDE LAB Specimen Blood - Blood Narrative Performed At Performing Organization Address City/State/Zipcode Phone Number OTHER OUTSIDE LAB * CBC (03/14/2015) White Blood 6.9 OTHER OUTSIDE Cells LAB RBC OTHER OUTSIDE LAB Hemoglobin 14.8 OTHER OUTSIDE LAB Hematocrit 44.9 OTHER OUTSIDE LAB MCV OTHER OUTSIDE LAB MCH OTHER OUTSIDE LAB MCHC OTHER OUTSIDE LAB Platelet Count 240 OTHER OUTSIDE LAB MPV OTHER OUTSIDE LAB RDW OTHER OUTSIDE LAB Specimen Blood - Blood Narrative Performed At Performing Organization Address City/State/Zipcode Phone Number OTHER OUTSIDE LAB documented in this encounter Visit Diagnoses Not on filedocumented in this encounter
--- OUTSIDE RECORDS SUMMARY | 2019-02-05 07:24 | XMS REPORT | Encounter Summary ---
Author Author [facility] Organization [facility] Address Unknown Phone Unavailable Care Team Providers Care Radiologic Technologist Name Role Phone Carlos A Roger MD PCP Encounter Details Care Team Description Date Type Department EmerObi hernandes MD [address] [facility] [id number] [place] [address] [phone] 03/08/2015 Hospital [facility] [address] [place] [address] Social History Date Tobacco Use Types Packs/Day Years Used Never Smoker Smokeless Tobacco: Never Used Drinks/Week oz/Week Comments Alcohol Use No Sex Assigned at Date Recorded Not on file Industry Job Start Date Occupation Not on file Not on file Not on file Travel End Travel History Travel Start No recent travel history available. documented as of this encounter Medications at [...] daily. 2.5 everyday, 5 mg Saturday/ day 03/23/2015 digoxin (LANOXIN) 125 mcg Take 0.125 mg 0 tablet by mouth at bedtime daily. 03/23/2015 diltiazem CD (CARDIZEM Take 120 mg 0 CD) 120 mg capsule by mouth every morning. 03/08/2015 03/23/2015 metoprolol (LOPRESSOR) 50 Take 1.5 Tabs 270 Tab 3 mg tablet by mouth twice daily. documented as of this encounter Plan of Treatment Not on filedocumented as of this encounter Procedures Comments Procedure Name Priority Date/Time Associated Diagnosis DEVICE EVALUATION - PPM Routine 03/08/2015 Cardiac pacemaker in situ 8:41 AM CDT documented in this encounter Results * DEVICE EVALUATION - PPM (03/08/2015 8:41 AM CDT) Date of Last OTHER OUTSIDE Remote Check LAB Next Remote OTHER OUTSIDE Check Due LAB Enrollment Date OTHER OUTSIDE LAB Date of OTHER OUTSIDE baseline remote LAB transmission AT/AF Daily OTHER OUTSIDE [place] Hours LAB Average Vent OTHER OUTSIDE Rate during LAB AT/AF #BPM Average Vent OTHER OUTSIDE Rate During LAB AT/AF #Hours Remote No OTHER OUTSIDE Monitoring? LAB Remote Check? OTHER OUTSIDE LAB Wireless No OTHER OUTSIDE Generator LAB Daily [place] OTHER OUTSIDE [place]resh[place] Alert? LAB Average OTHER OUTSIDE Venticular Rate LAB AT/AF On/Off VF OTHER OUTSIDE Detection/Thera LAB py Off Date of Last OTHER OUTSIDE ICM Evaluation LAB Next ICM Check OTHER OUTSIDE Due LAB Activity OTHER OUTSIDE LAB HRV (range ms) OTHER OUTSIDE LAB FL IND RANGE OTHER OUTSIDE (Last Fluid LAB Index Range) FL IND OTHER OUTSIDE TODAY(Today LAB Fluid Index Value) THOR IMP OTHER OUTSIDE RANGE(Last LAB Optivol Thoracic Impedence Range) THOR IMP OTHER OUTSIDE TODAY(Today's LAB Optivol Thoracic Impedence Value) HF Patient No OTHER OUTSIDE LAB ICM Evaluation OTHER OUTSIDE LAB Thoracic OTHER OUTSIDE Impedance LAB Evaluated? Date of Last OTHER OUTSIDE Programming LAB Next tbd OTHER OUTSIDE Programming LAB Check Due Date of Last 03-08-15 OTHER OUTSIDE Interrogation LAB Device OTHER OUTSIDE Reprogram LAB Comments Initial Rhythm Afib w/ V rate 100-120bpm OTHER OUTSIDE LAB Underlying Namita parameters ATP on OTHER OUTSIDE Rhythm LAB Device Mode AAIR<>DDDR OTHER OUTSIDE LAB Lower Rate 60 OTHER OUTSIDE Limit LAB Upper Rate 130 OTHER OUTSIDE Limit LAB Sensor Rate 130 OTHER OUTSIDE Limit LAB Pace AV Delay 300 OTHER OUTSIDE LAB Sense AV Delay 270 OTHER OUTSIDE LAB Mode Switch OTHER OUTSIDE (bpm) LAB High A Rate OTHER OUTSIDE Detect LAB High V Rate OTHER OUTSIDE Detect LAB -VS% 91 OTHER OUTSIDE LAB -APPRAISAL ANALYST% 8.7 OTHER OUTSIDE LAB -VS% 0.2 OTHER OUTSIDE LAB AP-APPRAISAL ANALYST% 0.1 OTHER OUTSIDE LAB Initial Rhythm -VS OTHER OUTSIDE LAB Device Function Yes OTHER OUTSIDE WNL LAB Device No OTHER OUTSIDE Reprogram LAB Mode Switch On OTHER OUTSIDE Status LAB Programming? No OTHER OUTSIDE LAB Interrogation? Yes OTHER OUTSIDE LAB Device Check by OTHER OUTSIDE Rep LAB # Mode S. 2 OTHER OUTSIDE Events LAB # High AT/AF 2 OTHER OUTSIDE Evts LAB # High V Events 9 fast A/V OTHER OUTSIDE LAB Time in AT/AF OTHER OUTSIDE LAB V Rate in AT/AF OTHER OUTSIDE LAB Single PVSc 0/hr OTHER OUTSIDE LAB PVC runs 0/hr iin MS OTHER OUTSIDE LAB Battery Voltage 2.97 OTHER OUTSIDE LAB Estimated OTHER OUTSIDE Longevity LAB Magent Rate OTHER OUTSIDE LAB A Sense mv OTHER OUTSIDE LAB A Lead ohms 472 OTHER OUTSIDE LAB A Capture V OTHER OUTSIDE LAB A Capture ms OTHER OUTSIDE LAB Ao Voltage 2.0 OTHER OUTSIDE LAB AO Pulse Width 0.6 OTHER OUTSIDE LAB RV Sense mv OTHER OUTSIDE LAB RV Lead ohms 552 OTHER OUTSIDE LAB RV Capture V OTHER OUTSIDE LAB RV Capture ms OTHER OUTSIDE LAB RV Voltage 2.5 OTHER OUTSIDE LAB RV Pulse Width 1.5 OTHER OUTSIDE LAB LV Sense mv OTHER OUTSIDE LAB LV Lead ohms OTHER OUTSIDE LAB EP LV Capture V OTHER OUTSIDE LAB LV Capture ms OTHER OUTSIDE LAB LV Voltage OTHER OUTSIDE LAB LV Pulse Width OTHER OUTSIDE LAB V-V Timing OTHER OUTSIDE LAB Counters Clrd Yes OTHER OUTSIDE LAB Saved to Disc No OTHER OUTSIDE LAB Device carlos a Roger MD OTHER OUTSIDE Implanted By LAB [...] Check OTHER OUTSIDE Next Due LAB JAIRO/EOL OTHER OUTSIDE Indicator LAB Generator Medtronic OTHER OUTSIDE Dental Chair Assembler LAB Generator OTHER OUTSIDE Dental Chair Assembler LAB Other Generator Model [id number] revo OTHER OUTSIDE # LAB Generator [id number] OTHER OUTSIDE Serial # LAB Generator 01-02-2012 OTHER OUTSIDE Implnat Date LAB Atrial Lead Medtronic OTHER OUTSIDE Dental Chair Assembler LAB Atrial Lead OTHER OUTSIDE Dental Chair Assembler LAB Other Atrial Lead [id number] OTHER OUTSIDE Model # LAB Atrial Lead OTHER OUTSIDE Serial # LAB Atrial Lead 01-02-2012 OTHER OUTSIDE Implant Date LAB RV Lead OTHER OUTSIDE Dental Chair Assembler LAB RV Lead OTHER OUTSIDE Dental Chair Assembler LAB Other RV Lead Model # [id number] OTHER OUTSIDE LAB RV Lead Serial OTHER OUTSIDE # LAB RV Lead Implant 01-02-2012 OTHER OUTSIDE Date LAB LV Lead OTHER OUTSIDE Dental Chair Assembler LAB LV Lead OTHER OUTSIDE Dental Chair Assembler LAB Other LV Lead Model # OTHER OUTSIDE LAB LV Lead Serial OTHER OUTSIDE # LAB LV Lead Implant OTHER OUTSIDE Date LAB Other Implant OTHER OUTSIDE Info LAB Pacemaker No OTHER OUTSIDE Dependant LAB Generator No OTHER OUTSIDE Investigational LAB Atrial Lead No OTHER OUTSIDE Investigational LAB RV Lead No OTHER OUTSIDE Investigational LAB LV Lead OTHER OUTSIDE Investigational LAB Device Type OTHER OUTSIDE LAB Specimen Narrative Performed At [facility] clinic OTHER OUTSIDE LAB [03/08/2015 8:42:09 AM - [facility]] Dual chamber pacemaker interrogation for AF burden.Device function appears normal. Events noted: since 01-20-15 Atrial:100% AT/ AF burden. AT/ AF graph shows in 95-100% since mid Aug 2014. Approx 50% of time HR is > 100bpm. Ventricular:0 Follow ppm routinely with Dr Roger. To have AV node ablation in near future. Reviewed with Dr Landry in clinic Performing Organization Address City/State/Zipcode Phone Number OTHER OUTSIDE LAB documented in this encounter Visit Diagnoses Diagnosis Cardiac pacemaker in situ documented in this encounter
--- OUTSIDE RECORDS SUMMARY | 2019-02-05 07:24 | XMS REPORT | Encounter Summary ---
Author Author [facility] Organization [facility] Address Unknown Phone Unavailable Care Team Providers Care Check Processor Name Role Phone Juan Jose Roger MD PCP Cesario Lobato DO PCP Robina Elias RN Unavailable Unavailable Nadege Forbes RN Unavailable Unavailable Reason for Visit * Reason Comments New Patient referred by Dr. Roger Atrial fibrillation Encounter Details Care Team Description Date Type Department Obi Landry MD [address] [facility] [place] [address] [phone] New Patient (referred by Dr. Roger); Atrial fibrillation 03/08/2015 Office Visit [facility] [address] [place] [address] Social History Date Tobacco Use Types Packs/Day [...] Signs Reading Time Taken Comments Vital Sign 120/80 03/08/2015 8:03 AM CDT Blood Pressure 123 03/08/2015 8:03 AM CDT Pulse - - Temperature - - Respiratory Rate - - Oxygen Saturation - - Inhaled Oxygen Concentration 153.6 kg (338 lb 11.2 oz) 03/08/2015 7:51 AM CDT Weight 160 cm (5' 2.99") 03/08/2015 7:51 AM CDT Height 60.01 03/08/2015 7:51 AM CDT Body Mass Index documented in this encounter Patient Instructions * Patient Instructions* Kieran Samaniego RN - 03/08/2015 8:59 AM CDT 1. Increase Metoprolol to 75mg BID. 1.5 tabs twice a day. 2. Follow up with Dr. Landry in 2 months. documented in this encounter Progress Notes * Obi Landry MD - 03/08/2015 7:52 AM CDT Date of Service: 03/08/2015 Rhoda Leyva is a 75 y.o. female. HPI I had the pleasure of seeing your patient Rhoda Leyva for initial Elect rophysiolgy Consultation in the [facility] as a part of the [facility] [place] office today regarding her persistent and rapid AFIB. She is typically followed and was referred by my good friend and colleague Dr. Owen fung, her primary moisture meter reader in [place], [place]. Ms. Leyva is an exceptionally pleasant 75 y.o. female, who is accompanied by h er equally pleasant 3 daughters. Her PMHx briefly includes: Persistent AFIB with RVR, Chronic Anticoagulation, S SS, S/P Medtronic MRI Compatible DDDR PPM implant 01/01/15, Normal LV Function by Echo by Dr. Roger 01/2014, Non-obstructive CAD by Cath by Dr. Roger in 2006 after Thallium suggested inferior revers., HTN, HLD, Hypothyroidism, OSAS, Nonobstruc tive Carotid Artery disease by duplex 2012 in [facility].and Obesity. Note--I have some, but not all records from Dr. Roger's office. Her Hx of AFIB dates back at least 5 years ago. She had been on Amiodarone in t he past but hasd marked SE or intolerances. She has had CVRTs inn the past. Sh e by pt. Report has a markedly dilated LA. By their report 10/2014 At [facility]she was CVRT'd but did not stay in N SR. 01/2015, Dr. Roger again considered CVRT to restore NSR but ERIKA demonstrated LA A clot Dr. Roger had been pursuing V-rate control and she had SBRAD and SSS with slow V -rates of AFIB as well as tachy. So he placed a DDDR PPM. However, despite Meto prolol, Diltiazem and most recently Digoxin. With recent JUAN LUIS clot and her markedly dilated LA, I suspected that Dr. Roger tho ught the likelihood of maintaining NSR would be low. She was also on 3 rate con trolling meds yet still had RVR. Therefore she was referred for EP Consultation . IN PRESENTATION TODAY, she STATES that She [...] Permanent Atrial Fibrillation (PAFIB): We had a lengt hy discussion regarding atrial fibrillation, the pathophysiology of Atrial Fibri llation, the mechanism, and therapeutic options. We discussed what I call the 3 R's: The Rhythm being abnormal; the Rate being R apid; and the Risk of stroke. Per Dr. Roger's description her LA is too large to likely maintain NSR, so antic ipate we will accepting her AFIB as Permanent. --Rapid V-Rate of AFIB: -for now Increase Metoprolol to 75 mg BID (1.5 tabs) -However, I do not anticipate she will tolerate further titration of meds by SB P or Sxs. -Therefore I recommended pursuing an AVN RFA resulting in CHB with minimal to n o escape rhythm. -We, the patient, her 3 daughters and I had over an 60 minutes just of dialogue about AFIB, etc, as above and the recommendation to pursue AVN RFA. -Procedures/risks/rationale/options/benefits discussed with patient in detail a nd questions answered. As noted, her daughters were also present. All expressed an understanding of the procedure and risks and wish to proceed. -We will likely stop diltiazem and digoxin post AV node RFA and possibly even m etoprolol--unless she needs it for HTN control or some other reason. --Her other medical problems are per Dr. Roger and her PMD. Ms. Leyva was educated [...] scheduled her follow-up with me in one month( s) post procedure. Filed Vitals: 03/08/15 0751 03/08/15 0803 BP: [...] of increased jugular venous pressure, carotids are 2+ /4+ equal bilaterally, without obvious bruit. Irregularly irregular rhythm, S1, S2. 2/6 systolic murmur noted at the RUSB-->LLSB. No heaves, thrills, rubs. PMI is not palpated GI: obese, soft and non-tender Extremities: With 1+ pretibial and pedal pitting peripheral edema. Distal puls es are intact but difficult to palpate. Device: [...] Schedule Name Type Priority Associated Diagnoses Ordered: 03/08/2015 ECG 12-LEAD ECG Routine Paroxysmal atrial fibrillation Hyperlipidemia Bilateral carotid artery stenosis Congestive heart failure, unspecified congestive heart failure chronicity, unspecified congestive heart failure type documented as of this encounter Procedures Comments Procedure Name Priority Date/Time Associated Diagnosis ECG/QRS Routine 03/08/2015 8:07 AM CDT documented in this encounter Results * DEVICE EVALUATION - PPM (05/04/2015 8:35 AM CDT) Date of Last OTHER OUTSIDE Remote Check LAB Next Remote OTHER OUTSIDE Check Due LAB Enrollment Date OTHER OUTSIDE LAB Date of OTHER OUTSIDE baseline remote LAB transmission AT/AF Daily OTHER OUTSIDE [place] Hours LAB Average Vent OTHER OUTSIDE Rate during LAB AT/AF #BPM Average Vent OTHER OUTSIDE Rate During LAB AT/AF #Hours Remote No OTHER OUTSIDE Monitoring? LAB Wireless No OTHER OUTSIDE Generator LAB Daily [place] OTHER OUTSIDE Threshld Alert? LAB Average OTHER [...] OUTSIDE Indicator LAB Generator Medtronic OTHER OUTSIDE Shift Manager LAB Generator OTHER OUTSIDE Shift Manager LAB Other Generator Model [id number] revo OTHER OUTSIDE # LAB Generator [id number] OTHER OUTSIDE Serial # LAB Generator 01-02-2012 OTHER OUTSIDE Implnat Date LAB Atrial Lead Medtronic OTHER OUTSIDE Shift Manager LAB Atrial Lead OTHER OUTSIDE Shift Manager LAB Other Atrial Lead [id number] OTHER OUTSIDE Model # LAB Atrial Lead OTHER OUTSIDE Serial # LAB Atrial Lead 01-02-2012 OTHER OUTSIDE Implant Date LAB RV Lead OTHER OUTSIDE Shift Manager LAB RV Lead OTHER OUTSIDE Shift Manager LAB Other RV Lead Model # [id number] OTHER OUTSIDE LAB RV Lead Serial OTHER OUTSIDE # LAB RV Lead Implant 01-02-2012 OTHER OUTSIDE Date LAB LV Lead OTHER OUTSIDE Shift Manager LAB LV Lead OTHER OUTSIDE Shift Manager LAB Other LV Lead Model # OTHER [...] OUTSIDE Reprogram LAB Comments Initial Rhythm AF, Field Crops Harvest Machine Operator @ 92-109ppm OTHER OUTSIDE LAB Underlying AF, no QRS @ VVI 35 OTHER OUTSIDE Rhythm LAB -VS% Field Crops Harvest Machine Operator 99.7% OTHER OUTSIDE LAB -EXTENSION ASSOCIATE% OTHER OUTSIDE LAB -VS% OTHER OUTSIDE LAB AP-EXTENSION ASSOCIATE% OTHER OUTSIDE LAB Initial Rhythm OTHER OUTSIDE [...] 3V to maintain safety margin. Pt has [facility] [employer] but plans to continue to follow w/ her local moisture meter reader. Will continue to monitor.Per Dr. Landry Lower Rate needs to be decreased from 80 to 70ppm.Spoke w/ Dr. Roger's office & they will have MDT Rep make adjustment 05-26-15 in [place]. Report given to Dr. Landry in clinic.[employer] [facility] Organization Address City/State/Zipcode Phone Number OTHER OUTSIDE LAB * ECG/QRS (03/08/2015 8:07 AM CDT) QRS DURATION 88 documented in this encounter Visit Diagnoses Diagnosis Paroxysmal atrial fibrillation (HCC) - Primary Atrial fibrillation Hyperlipidemia Other and unspecified hyperlipidemia Bilateral carotid artery stenosis Occlusion and stenosis of multiple and bilateral precerebral arteries without mention of cerebral infarction Congestive heart failure, unspecified congestive heart failure chronicity, unspecified congestive heart failure type Routine general medical examination at a health care facility Coronary artery disease with unspecified angina pectoris documented in this encounter
--- OUTSIDE RECORDS SUMMARY | 2019-02-05 07:24 | XMS REPORT | Encounter Summary ---
Author Author [facility] Organization [facility] Address Unknown Phone Unavailable Care Team Providers Care Rubber Goods Finisher Name Role Phone KayliCesario rodriguez PCP Robina Elias RN Unavailable Unavailable Encounter Details Care Team Description Date Type Department Obi Landry MD [address] [facility] [address] [place] [address] [phone] 03/17/2015 Hospital PAT Encounter [address] [place] [address] Social History Date Tobacco Use Types Packs/Day [...] Comments Procedure Name Priority Date/Time Associated Diagnosis TYPE & SCREEN (NOT Routine 03/17/2015 Paroxysmal atrial CROSSMATCH ELIGIBLE) 9:24 AM CDT fibrillation documented in this encounter Results * TYPE & SCREEN (NOT CROSSMATCH ELIGIBLE) (03/17/2015 9:24 AM CDT) ABO/RH(D) A POS MAIN LAB Antibody Screen NEG [facility] Blood Component RED CELL GROUP [facility] Type Specimen Blood, venous - Blood Performing Organization Address City/State/Zipcode Phone Number MAIN LAB [address] [place] [address] documented in this encounter Visit Diagnoses Diagnosis Paroxysmal atrial fibrillation (HCC) Atrial fibrillation documented in this encounter
--- OUTSIDE RECORDS SUMMARY | 2019-02-05 07:24 | XMS REPORT | Encounter Summary ---
Author Author [facility] Organization [facility] Address Unknown Phone Unavailable Care Team Providers Care Process Tank Tender Name Role Phone Carlos A Roger MD PCP Reason for Visit * Reason Comments Precertification Approval for AVN RFA through coventry Encounter Details Care Team Description Date Type Department Alphonse Ron RN Precertification (Approval for AVN RFA through coventr) 03/08/2015 Documentation [facility] [address] [facility] [place] [address] Social History Date Tobacco Use Types Packs/Day Years Used Never Smoker Smokeless Tobacco: Never Used Drinks/Week oz/Week Comments Alcohol Use No Sex Assigned at Date Recorded Not on file Industry Job Start Date Occupation Not on file Not on file Not on file Travel End Travel History Travel Start No recent travel history available. documented as of this encounter Progress Notes * Alphonse Ron, SHANA - 03/08/2015 2:09 PM CDT Rosa with [facility], , confirmed benefits and eligibility: Curren t and active since 12/24/2014, no deductible with required co-insurance of 20% to max OOP $5500, then plan will pay 100% of allowable charges. No pre-certificati on is required for AV Node RFA [id number]. Reference #[id number] documented in this encounter Plan of Treatment Not on filedocumented as of this encounter Visit Diagnoses Not on filedocumented in this encounter
--- OUTSIDE RECORDS SUMMARY | 2019-02-05 07:24 | XMS REPORT | Encounter Summary ---
Author Author [facility] Organization [facility] Address Unknown Phone Unavailable Care Team Providers Care Metallurgical Inspector Name Role Phone Carlos A Roger MD PCP Reason for Visit * Reason Comments Anticoagulation INR 2.7/PCP manages Encounter Details Care Team Description Date Type Department Zoya Lynch RN Anticoagulation (INR 2.7/PCP manages) 03/14/2015 Anticoagulation [facility] [address] [place] [address] Social History Date Tobacco Use Types Packs/Day Years Used Never Smoker Smokeless Tobacco: Never Used Drinks/Week oz/Week Comments Alcohol Use No Sex Assigned at Date Recorded Not on file Industry Job Start Date Occupation Not on file Not on file Not on file Travel End Travel History Travel Start No recent travel history available. documented as of this encounter Progress Notes * Zoya Lynch RN - 03/15/2015 9:34 AM CDT Verified that INR is being managed by PCP,Dr. Roger; She will have INR drawn 02/24 0/15 per Kieran's directions pre procedure. 03/22. I instructed her to go in th e AM so we get the result the same day. documented in this encounter Plan of Treatment Not on filedocumented as of this encounter Visit Diagnoses Not on filedocumented in this encounter
--- OUTSIDE RECORDS SUMMARY | 2019-02-05 07:25 | XMS REPORT | Encounter Summary ---
Author Author [facility] Organization [facility] Address Unknown Phone Unavailable Care Team Providers Care Textile Technologist Name Role Phone Unknown, Unknown Md PCP Unavailable Encounter Details Care Team Description Date Type Department Michelle Alcala RN 03/03/2015 Documentation [facility] [address] [place] [address] Social History Date Tobacco Use Types Packs/Day Years Used Never Assessed Sex Assigned at Date Recorded Not on file Industry Job Start Date Occupation Not on file Not on file Not on file Travel End Travel History Travel Start No recent travel history available. documented as of this encounter Plan of Treatment Not on filedocumented as of this encounter Visit Diagnoses Diagnosis Arthritis - Primary Arthropathy, unspecified, site unspecified Left ventricular hypertrophy Cardiomegaly Obstructive sleep apnea Obstructive sleep apnea (adult) (pediatric) S/P cholecystectomy Other acquired absence of organ documented in this encounter
--- OUTSIDE RECORDS SUMMARY | 2019-02-05 07:26 | XMS REPORT | Continuity of Care Document ---
Author Organization Unknown Address Unknown Allergies Active Description Code Type Severity Reaction Onset Reported/Identified Relationship to Patient Clinical Status Yes codeine [id number] Drug Allergy Unknown N/A 05/28/2007 Yes hydrocodone [id number] Drug Allergy Mild NAUSEA 03/26/2008 Yes adhesive tape [id number] Drug Allergy Severe RASH/ ITCHING 11/21/2018 Yes gemfibrozil [id number] Drug Allergy Moderate N/A 11/21/2018 Medications There is no data. Problems Date [...] DELUNA MD Ot E78.2 MIXED HYPERLIPIDEMIA 12/21/2015 ANI DELUNA MD Ot I10 ESSENTIAL (PRIMARY) HYPERTENSION 12/21/2015 ANI [...] ATRIAL FIBRILLATION 07/30/2016 Ot V76.12 OTH SCREEN MAMMO- MALIGN NEOPLASM OF JUNG 07/30/2016 Ot 427.31 ATRIAL FIBRILLATION 07/30/2016 Ot 276.8 HYPOPOTASSEMIA 07/30/2016 Ot 593.9 RENAL URETERAL DIS NOS 07/30/2016 Ot 782.3 EDEMA 07/30/2016 Ot 793.80 UNSPEC ABNORMAL MAMMOGRAM 07/30/2016 Ot V76.12 OTH SCREEN MAMMO- MALIGN NEOPLASM OF JUNG 07/30/2016 Ot 793.80 UNSPEC [...] 428.0 CONGESTIVE HEART FAILURE NOS 07/30/2016 ASHLI OLIVERA DO Ot V76.12 OTH SCREEN [...] Ot 428.0 CONGESTIVE HEART FAILURE NOS 11/18/2018 RICHABEILNOQUINTIN ASHLI ZAPATA Ot V76.12 OTH SCREEN MAMMO-MALIGN NEOPLASM OF JUNG 11/18/2018 NAZARIOQUINTIN ASHLI ZAPATA Ot Z12.31 ENCNTR SCREEN MAMMOGRAM FOR MALIGNANT NE 11/18/2018 ANI DELUNA MD Ot E78.2 MIXED HYPERLIPIDEMIA 11/18/2018 ANI DELUNA MD Ot I10 ESSENTIAL (PRIMARY) HYPERTENSION 11/18/2018 ANI DELUNA MD Ot I27.2 OTHER SECONDARY PULMONARY HYPERTENSION 11/18/2018 ANI DELUNA MD Ot I48.0 PAROXYSMAL ATRIAL FIBRILLATION 11/18/2018 RICHAEBLINOQUINTIN ASHLI ZAPATA Ot Z12.31 ENCNTR SCREEN MAMMOGRAM FOR MALIGNANT NE 11/18/2018 ASHLI OLIVERA DO Ot Z12.31 ENCNTR SCREEN MAMMOGRAM FOR MALIGNANT NE 11/21/2018 ANI DELUNA MD Ot 397.0 TRICUSPID VALVE DISEASE 11/21/2018 ANI DELUNA MD Ot 401.9 HYPERTENSION NOS 11/21/2018 ANI DELUNA MD Ot 414.00 CORON ATHEROSCLER NOS TYPE VESSEL, NATIV 11/21/2018 ANI DELUNA MD Ot 424.0 MITRAL VALVE DISORDER 11/21/2018 ANI DELUNA MD Ot 428.0 CONGESTIVE HEART FAILURE NOS 11/21/2018 ASHLI OLIVERA DO Ot V76.12 OTH SCREEN MAMMO-MALIGN NEOPLASM OF JUNG 11/21/2018 ASHLI OLIVERA DO Ot Z12.31 ENCNTR SCREEN MAMMOGRAM FOR MALIGNANT NE 11/21/2018 ANI DELUNA MD Ot E78.2 MIXED HYPERLIPIDEMIA 11/21/2018 ANI DELUNA MD Ot I10 ESSENTIAL (PRIMARY) HYPERTENSION 11/21/2018 ANI DELUNA MD Ot I27.2 OTHER SECONDARY PULMONARY HYPERTENSION 11/21/2018 ANI DELUNA MD Ot I48.0 PAROXYSMAL ATRIAL FIBRILLATION 11/21/2018 ASHLI OLIVERA DO Ot Z12.31 ENCNTR SCREEN MAMMOGRAM FOR MALIGNANT NE 11/21/2018 ASHLI OLIVERA DO Ot Z12.31 ENCNTR SCREEN MAMMOGRAM FOR MALIGNANT NE 11/21/2018 ANI DELUNA MD Ot E03.9 HYPOTHYROIDISM, UNSPECIFIED 11/21/2018 ANI DELUNA MD Ot E78.5 HYPERLIPIDEMIA, UNSPECIFIED 11/21/2018 ANI DELUNA MD Ot G47.33 OBSTRUCTIVE SLEEP APNEA (ADULT) (PEDIATR 11/21/2018 ANI DELUNA MD Ot I10 ESSENTIAL (PRIMARY) HYPERTENSION 11/21/2018 ANI DELUNA MD Ot I27.20 PULMONARY HYPERTENSION, UNSPECIFIED 11/21/2018 ANI DELUNA MD Ot I44.2 ATRIOVENTRICULAR BLOCK, COMPLETE 11/21/2018 ANI DELUNA MD Ot I48.2 CHRONIC ATRIAL FIBRILLATION 11/21/2018 ANI DELUNA MD Ot J44.9 CHRONIC OBSTRUCTIVE PULMONARY DISEASE, U 11/21/2018 ANI DELUNA MD Ot Z45.010 ENCNTR FOR CHECKING AND TEST OF CARD PAC 11/21/2018 ANI DELUNA MD Ot Z79.01 FIELD HORTICULTURAL SPECIALTY GROWER (CURRENT) USE OF ANTICOAGULANT 11/21/2018 NAI DELUNA MD Ot Z79.899 OTHER ALF (CURRENT) DRUG THERAPY 11/25/2018 ANI DELUNA MD Ot E03.9 HYPOTHYROIDISM, UNSPECIFIED 11/25/2018 ANI DELUNA MD Ot E78.5 HYPERLIPIDEMIA, UNSPECIFIED 11/25/2018 ANI DELUNA MD Ot G47.33 OBSTRUCTIVE SLEEP APNEA (ADULT) (PEDIATR 11/25/2018 ANI DELUNA MD Ot I10 ESSENTIAL (PRIMARY) HYPERTENSION 11/25/2018 ANI DELUNA MD Ot I27.20 PULMONARY HYPERTENSION, UNSPECIFIED 11/25/2018 ANI DELUNA MD Ot I44.2 ATRIOVENTRICULAR BLOCK, COMPLETE 11/25/2018 ANI DELUNA MD Ot I48.2 CHRONIC ATRIAL FIBRILLATION 11/25/2018 ANI DELUNA MD Ot J44.9 CHRONIC OBSTRUCTIVE PULMONARY DISEASE, U 11/25/2018 ANI DELUNA MD Ot Z45.010 ENCNTR FOR CHECKING AND TEST OF CARD PAC 11/25/2018 ANI DELUNA MD, Ot Z79.01 FIELD HORTICULTURAL SPECIALTY GROWER (CURRENT) USE OF ANTICOAGULANT 11/25/2018 ANI DELUNA MD, Ot Z79.899 OTHER FIELD HORTICULTURAL SPECIALTY GROWER (CURRENT) DRUG THERAPY 11/28/2018 ASHLI OLIVERA DO Ot N95.0 POSTMENOPAUSAL BLEEDING 11/28/2018 ASHLI OLIVERA DO Ot R93.89 ABNORMAL FINDINGS ON DX IMAGING OF OTH B 02/03/2019 HUMBERTO GANDHI DO Ot Z01.818 ENCOUNTER FOR OTHER PREPROCEDURAL EXAMIN Procedures Code Description Performed By Performed On 88.72 DX ULTRASOUND-HEART 12/31/2011 99.62 HEART COUNTERSHOCK NEC 12/31/2011 37.72 INITIAL INSERT TRANS LEADS INTO ATRIUM 01/02/2012 37.83 INITIAL INSERTION OF DUAL-CHAMBER DEVICE 01/02/2012 Results Test Result Range Automated blood complete blood count (hemogram) panel - 11/21/18 08:30 Blood leukocytes automated count (number/volume) 7.4 10*3/uL 4.3-11.0 Blood erythrocytes automated count (number/volume) 4.52 10*6/uL 4.35-5.85 Venous blood hemoglobin measurement (mass/volume) 13.8 g/dL 11.5-16.0 Blood hematocrit (volume fraction) 42 % 35-52 Automated erythrocyte mean corpuscular volume 94 [foz_us] 80-99 Automated erythrocyte mean corpuscular hemoglobin (mass per erythrocyte) 31 pg 25-34 Automated erythrocyte mean corpuscular hemoglobin concentration measurement (mass/volume) 33 g/dL 32-36 Automated erythrocyte distribution width ratio 13.4 % 10.0- 14.5 Automated blood platelet count (count/volume) 202 10*3/uL 130-400 Automated blood platelet mean volume measurement 11.9 [foz_us] 7.4-10.4 PT panel in platelet poor plasma by coagulation assay - 11/21/18 08:30 Prothrombin time (PT) in platelet poor plasma by coagulation assay 13.7 s 12.2-14.7 INR in platelet poor plasma or blood by coagulation assay 1.0 0.8-1.4 Activated partial thromboplastin time (aPTT) in platelet poor plasma bycoagulation assay - 11/21/18 08:30 Activated partial thromboplastin time (aPTT) in platelet poor plasma bycoagulation assay 26 s 24-35 Comprehensive metabolic panel - 11/21/18 08:30 Serum or plasma sodium measurement (moles/volume) 141 mmol/L 135-145 Serum or plasma potassium measurement (moles/volume) 4.2 mmol/L 3.6-5.0 Serum or plasma chloride measurement (moles/volume) 105 mmol/L 98-107 Carbon dioxide 24 mmol/L 21-32 Serum or plasma anion gap determination (moles/volume) 12 mmol/L 5-14 Serum or plasma urea nitrogen measurement (mass/volume) 22 mg/dL 7-18 Serum or plasma creatinine measurement (mass/volume) 0.88 mg/dL 0.60-1.30 Serum or plasma urea nitrogen/creatinine mass ratio 25 NRG Serum or plasma creatinine measurement with calculation of estimated glomerular filtration rate > NRG Serum or plasma glucose measurement (mass/volume) 120 mg/dL 70-105 Serum or plasma calcium measurement (mass/volume) 9.9 mg/dL 8.5-10.1 Serum or plasma total bilirubin measurement (mass/volume) 1.0 mg/dL 0.1-1.0 Serum or plasma alkaline phosphatase measurement (enzymatic activity/volume) 69 U/L 40-136 Serum or plasma aspartate aminotransferase measurement (enzymatic activity/volume) 21 U/L 5-34 Serum or plasma alanine aminotransferase measurement (enzymatic activity/volume) 21 U/L 0-55 Serum or plasma protein measurement (mass/volume) 7.4 g/dL 6.4-8.2 Serum or plasma albumin measurement (mass/volume) 4.0 g/dL 3.2-4.5 CALCIUM CORRECTED 9.9 mg/dL 8.5-10.1 Lipid 1996 panel - 11/21/18 08:30 Serum or plasma triglyceride measurement (mass/volume) 83 mg/dL <150 Serum or plasma cholesterol measurement (mass/volume) 164 mg/dL < 200 Serum or plasma cholesterol in HDL measurement (mass/volume) 56 mg/dL 40-60 Cholesterol in LDL [mass/volume] in serum or plasma by direct assay 87 mg/dL 1-129 Serum or plasma cholesterol in VLDL measurement (mass/volume) 17 mg/dL 5-40 Methicillin resistant Staphylococcus aureus (MRSA) screening culture - 11/21/18 08:30 Methicillin resistant Staphylococcus aureus (MRSA) screening culture NEG NRG Encounters ACCT No. Visit Date/Time Discharge Status Pt. Type Provider Facility Loc./Unit Complaint [id number] 02/03/2019 05:35:00 02/03/2019 13:23:00 DIS Outpatient HUMBERTO GANDHI DO [facility] PREOP D C [id number] 12/26/2018 13:00:00 12/26/2018 23:59:59 CLS Preadmit KRISTI DEE MD [facility] SDC POST MENOPAUSAL BLEEDING [id number] 11/27/2018 12:07:00 11/27/2018 23:59:59 CLS Outpatient NAZARIOHARRINGTON ASHLI Bill [facility] RAD POST MENOPAUSAL VAGINAL BLEEDING [id number] 11/21/2018 07:29:00 11/21/2018 17:08:00 DIS Outpatient ANI DELUNA MD [facility] CATH JAIRO,CHF,SSS,HTN [id number] 08/06/2017 09:34:00 08/06/2017 23:59:59 CLS Outpatient JOSELIN ZAPATA ASHLI Khan [facility] RAD YEARLY [id number] 07/30/2016 11:18:00 07/30/2016 23:59:59 CLS Outpatient NAZARIOHARRINGTON ASHLI Khan [facility] RAD YEARLY [id number] 12/08/2015 11:31:00 12/08/2015 23:59:59 CLS Outpatient ANI DELUNA MD [facility] CARD PAF,PULMONARY HTN,HLP [id number] 07/25/2015 10:46:00 07/25/2015 23:59:59 CLS Outpatient RICHASHLI VEGAS DO [facility] RAD SCREENING [id number] 01/26/2015 07:58:00 01/26/2015 11:57:00 DIS Outpatient ANI DELUNA MD [facility] CATH AFIB,CHF, [id number] 11/04/2014 07:40:00 11/06/2014 13:30:00 DIS Inpatient ANI DELUNA MD [facility] ICU AFIB W RVR [id number] 07/01/2014 12:36:00 07/01/2014 23:59:59 CLS Outpatient ASHLI OLIVERA DO [facility] RAD SCREENING [id number] 02/12/2014 09:54:00 02/12/2014 23:59:59 CLS Outpatient ANI DELUNA MD [facility] CARD CAD,CHF,CAROTID ARTERY STENOSIS,HTN [id number] 05/29/2013 09:05:00 05/29/2013 23:59:59 CLS Outpatient ASHLI OLIVERA DO [facility] RAD SIX MONTH F/U [id number] 02/05/2019 12:45:00 PEN Preadmit HUMBERTO GANDHI DO [facility] SDC POSTMENOPAUSAL BLEEDING, SIMPLE ENDOMETRIAL HYPERP [id number] 01/25/2015 10:46:00 Document Registration [id number] 01/25/2015 10:46:00 Document Registration [id number] 01/25/2015 10:46:00 Document Registration [id number] 11/07/2012 11:20:00 Document Registration [id number] 04/16/2012 15:00:00 Document Registration [id number] 04/14/2012 12:23:00 Document Registration [id number] 01/07/2012 13:22:00 Document Registration [id number] 10/26/2011 08:38:00 Document Registration [id number] 10/04/2011 11:03:00 Document Registration [id number] 07/25/2011 09:09:00 Document Registration [id number] 04/05/2011 08:59:00 Document Registration [id number] 10/10/2010 08:46:00 Document Registration [id number] 10/05/2010 08:49:00 Document Registration [id number] 11/24/2009 19:39:00 Document Registration [id number] 09/28/2009 13:28:00 Document Registration [id number] 06/09/2007 09:05:00 Document Registration
[2019-02-05] MEDS ORDERED: LACTATED RINGERS 1,000 ML IV PRN (07:29)
[2019-02-05 08:08] LABS: BASOPHILS % (AUTO) 0 % (0-10); EOSINOPHILS # (AUTO) 0.2 10^3/uL (0.0-0.3); EOSINOPHILS % (AUTO) 3 % (0-10); HEMATOCRIT 42 % (35-52); HEMOGLOBIN 13.7 G/DL (11.5-16.0); LYMPHOCYTES # (AUTO) 1.2 X 10^3 (1.0-4.0); LYMPHOCYTES % (AUTO) 22 % (12-44); MEAN CORPUSCULAR HEMOGLOBIN 30 PG (25-34); MEAN CORPUSCULAR HGB CONC 33 G/DL (32-36); MEAN CORPUSCULAR VOLUME 93 FL (80-99); MEAN PLATELET VOLUME 11.5 FL (7.4-10.4); MONOCYTES # (AUTO) 0.7 X 10^3 (0.0-1.0); MONOCYTES % (AUTO) 12 % (0-12); NEUTROPHILS # (AUTO) 3.6 X 10^3 (1.8-7.8); NEUTROPHILS % (AUTO) 63 % (42-75); PLATELET COUNT 203 10^3/uL (130-400); RED CELL DISTRIBUTION WIDTH 13.1 % (10.0-14.5); WHITE BLOOD COUNT 5.6 10^3/uL (4.3-11.0)
[2019-02-05] MEDS ORDERED: BUPIVACAINE 0.25% 30 ML (SENSORCAINE) VIAL ONE (08:13)
--- NOTE | 2019-02-05 09:04 | Progress Note-Pre Operative ---
Pre-Operative Progress Note H&P Reviewed The H&P was reviewed, patient examined and no changes noted. Date Seen by Provider: Feb 05, 2019 Time Seen by Provider: 09:00 Date H&P Reviewed: Feb 05, 2019 Time H&P Reviewed: 09:00 Pre-Operative Diagnosis: PMB HUMBERTO GANDHI DO Feb 05, 2019 09:04
[2019-02-05] MEDS ORDERED: SEVOFLURANE (ULTANE) 15 ML INHAL SOLN ONE (09:05)
[2019-02-05] MEDS ORDERED: fentaNYL INJECTION 100 MCG/2 ML AMP ONE (09:05)
[2019-02-05] MEDS ORDERED: MIDAZOLAM 2 MG/2 ML (VERSED) VIAL ONE (09:05)
[2019-02-05] MEDS ORDERED: ONDANSETRON 4 MG/2 ML (SDV) Z0FRAN ONE (09:05)
[2019-02-05] MEDS ORDERED: DEXAMETHASONE 10 MG/ML (DECADRON) 1 ML VIAL ONE (09:05)
[2019-02-05] MEDS ORDERED: proPOfol 200 MG/20 ML (DIPRIVAN) VIAL IV ONE (09:05)
[2019-02-05] MEDS ORDERED: LIDOCAINE PF 2% 5 ML (XYLOCAINE) VIAL ONE (09:05)
[2019-02-05] MEDS ORDERED: ONDANSETRON 4 MG/2 ML (SDV) Z0FRAN IVP PRN ×2 (10:00→10:15)
[2019-02-05] MEDS ORDERED: D5 LR IV SOLUTION 1,000 ML IV SCH (10:00)
[2019-02-05] MEDS ORDERED: KETOROLAC 15 MG/ML VIAL IVP ONE (10:00)
--- NOTE | 2019-02-05 10:03 | Discharge Inst-Women's Service ---
Discharge Inst-Women's Serv Depart Medication/Instructions New, Converted or Re-Newed RX: RX on Chart Consults/Follow Up Additional Follow Up: Yes Orders/Referrals Dr. Gandih in 2 weeks Activity Activity: Activity as Tolerated Driving Instructions: No Driving for 1 Week NO SMOKING: NO SMOKING Nothing Inside Vagina: No Douching, No Elfrida, No Tampons Diet Discharge Diet: No Restrictions Symptoms to Report to : Bleeding Excessive, Pain Increased, Fever Over 101 Degrees F, Vaginal Bleeding Increase, Questions/Concerns For Any Problems or Questions: Contact Your Physician HUMBERTO GANDHI DO Feb 05, 2019 10:02
[2019-02-05] MEDS ORDERED: morphine INJ 10 MG/ML 1ML (SYR OR VIAL) IVP ONE (10:15)
[2019-02-05] MEDS ORDERED: morphine INJ 4 MG/ML 1 ML (VIAL/SYRINGE) ONE (10:22)
[2019-02-05] MEDS ORDERED: KETOROLAC 30 MG/ML VIAL ONE (10:22)
--- NOTE | 2019-02-05 10:39 | Anesthesia-General Post-Op ---
General Patient Condition Mental Status/LOC: Same as Preop Cardiovascular: Satisfactory Nausea/Vomiting: Absent Respiratory: Satisfactory Pain: Controlled Complications: Absent Post Op Complications Complications None Follow Up Care/Instructions Patient Instructions None needed. Anesthesia/Patient Condition Patient Condition Patient is doing well, no complaints, stable vital signs, no apparent adverse anesthesia problems. No complications reported per nursing. FABRIZIO KEN CRNA Feb 05, 2019 10:39
--- NOTE | 2019-02-05 19:46 | OPERATIVE REPORT ---
DATE OF SERVICE: 02/05/2019 PREOPERATIVE DIAGNOSES: A 78-year-old female with: 1. Postmenopausal bleeding. 2. Simple endometrial hyperplasia. POSTOPERATIVE DIAGNOSES: A 78-year-old female with: 1. Postmenopausal bleeding. 2. Simple endometrial hyperplasia. PROCEDURE PERFORMED: D and C. SURGEON: Humberto Gandhi DO. ANESTHESIA: General endotracheal. ESTIMATED BLOOD LOSS: Minimal. URINE OUTPUT: 30 mL, clear drained at the end of the procedure versus the straight catheterization. FLUIDS: 600 mL lactated Ringer's solution. FINDINGS: There is a small to moderate amount of endometrial tissue via endometrial curetting. SPECIMENS SENT: Endometrial curettings. INDICATIONS FOR PROCEDURE: A 78-year-old female, the patient was initially evaluated by Dr. Franklin, endometrial biopsy in the office preceding postmenopausal bleeding, who was found to have simple endometrial hyperplasia. D and C was discussed with Dr. Franklin. However, the patient's insurance no longer facilitated his care and therefore she transferred to my care for further followup. We discussed how simple hyperplasia could be an early sign of a malignancy and discussed proceeding with a D and C to evaluate further signs of hyperplasia, atypia or malignancy. Risks of D and C were discussed with the patient in detail after all of her questions were answered in the preoperative area and the consent was reviewed, it was then obtained and the patient was taken to the operating room. OPERATIVE REPORT IN DETAIL: Once in the operating room, anesthesia was found to be adequate, placed in dorsal lithotomy position, prepped and draped in normal sterile fashion. A timeout was performed. A weighted speculum was inserted in the patient's vagina. Right angle retractor was used to visualize the cervix, which was grasped at 12 o'clock position using a long Allis clamp. The uterus cavity depth was then sounded and found to be approximately 8 cm. The uterus was then dilated using Roya dilators to a maximum dilatation of approximately 8 mm at which point I advanced a medium-sized endometrial curette into the endometrial cavity and gently curetted the endometrium in a methodical circumferential fashion. The curettings were then collected as endometrial curette. After this was done, there was no active bleeding noted from the cervix or the endocervix. A paracervical block was performed at 3 o'clock and 9 o'clock positions using 0.25% Marcaine with 5 mL were used at each injection site and care was taken to aspirate before injecting. This was done for postoperative pain management after which there was no active bleeding noted from the injection sites. The patient tolerated the procedure well and was taken to recovery area in stable condition. Lap and sponge counts were correct at the end of procedure, instrument counts were correct as well. Job ID: [id number] DocumentID: [id number] Dictated Date: 02/05/2019 13:31:42 Hand Splitter Date: 02/05/2019 19:45:57 Dictated By: HUMBERTO GANDHI DO
== END 2019-02-05 11:55 | disposition home or self-care (01) ==
LOC: SDC 07:17
PROVIDERS: ATTEND Obstetrics & Gynecology
DX: N95.0 Postmenopausal bleeding (principal); N85.01 Benign endometrial hyperplasia; I25.10 Atherosclerotic heart disease of native coronary artery without angina pectoris; I11.0 Hypertensive heart disease with heart failure; I50.9 Heart failure, unspecified; I48.0 Paroxysmal atrial fibrillation; I27.20 Pulmonary hypertension, unspecified; J44.9 Chronic obstructive pulmonary disease, unspecified; G47.33 Obstructive sleep apnea (adult) (pediatric); E03.9 Hypothyroidism, unspecified; E66.01 Morbid (severe) obesity due to excess calories; Z68.44 Body mass index [BMI] 60.0-69.9, adult; Z79.01 Long term (current) use of anticoagulants; Z79.899 Other long term (current) drug therapy; Z95.0 Presence of cardiac pacemaker
CPT/HCPCS: 36415; 85025; 86850; 86900; 86901; 87081; 88305

== ENCOUNTER → 2019-03-25 | Outpatient (CLI) | payer MEDICARE ==
--- NOTE | 2019-03-25 12:14 | Diagnostic Imaging Report ---
PROCEDURE: US non-OB pelvis comp/trans. TECHNIQUE: Multiple real-time grayscale images were obtained of the pelvis in various projections endovaginally. Transabdominal imaging was also performed. INDICATION: Postmenopausal bleeding. COMPARISON: Comparison is made with prior pelvic ultrasound from 11/27/2018. FINDINGS: Uterus measures 9.0 x 4.6 x 4.4 cm. The endometrium is 10 mm in thickness compared with 12 mm on prior exam. There are multiple cervical nabothian cysts present. There is a cyst in the left adnexa measuring 5.2 x 5.0 cm. Ovaries are not visualized. No free fluid is seen. IMPRESSION: 1. Endometrial thickness of 10 mm compared with 12 mm on prior study of 11/27/2018. 2. 5 cm left adnexal cyst, indeterminate. Continued followup is recommended. Dictated by: Dictated on workstation # [id number]
== END ==
LOC: RAD 10:43
PROVIDERS: ATTEND Obstetrics & Gynecology
DX: N95.0 Postmenopausal bleeding (principal); N83.8 Other noninflammatory disorders of ovary, fallopian tube and broad ligament; R93.89 Abnormal findings on diagnostic imaging of other specified body structures
CPT/HCPCS: 76830; 76856

== ENCOUNTER → 2019-05-11 | Outpatient (CLI) | payer MEDICARE | LOC: RT 13:55 | PROVIDERS: ATTEND Family Medicine | DX: J44.9 Chronic obstructive pulmonary disease, unspecified (principal) | CPT/HCPCS: 94060 ==

== ENCOUNTER → 2019-10-30 | Outpatient (CLI) | payer MEDICARE ==
--- NOTE | 2019-10-30 17:10 | Diagnostic Imaging Report ---
Examination: Ultrasound pelvis. Date: October 30, 2019. Indication: 79-year-old female, history of complex endometrial hyperplasia. Comparison: Pelvic ultrasound March 25, 2019. Technique: A sonogram of the pelvis was performed utilizing transabdominal and endovaginal approaches assessing louise-scale appearance and color Doppler flow. Findings: The uterus measures 8.9 x 4.3 x 5.1 cm. There are nabothian cysts. There is no otherwise identified uterine lesion. The endometrium measures 1.1 cm in diameter. The right and left ovaries are not well seen. There is a nearly anechoic lesion in the left adnexa, measuring 3.6 x 4.4 x 4.1 cm in size. There is no demonstrated internal blood flow. No free pelvic fluid is demonstrated. Impression: 1. Endometrial thickness of 11 mm which is abnormal in a postmenopausal female. 2. Cystic left adnexal mass, measuring up to 4.4 x 4.1 x 3.6 cm in size. This potentially could reflect a paraovarian cyst. 3. The ovaries are not well seen. 4. No free pelvic fluid. Dictated by: Dictated on workstation # [id number]
== END ==
LOC: RAD 13:45
PROVIDERS: ATTEND Obstetrics & Gynecology
DX: N85.02 Endometrial intraepithelial neoplasia [EIN] (principal); R93.89 Abnormal findings on diagnostic imaging of other specified body structures; R19.09 Other intra-abdominal and pelvic swelling, mass and lump
CPT/HCPCS: 76830; 76856

== ENCOUNTER → 2019-12-21 | Outpatient (CLI) | payer MEDICARE ==
[~2019-12-21] VITALS: Ht 160 cm; Wt 152.0 kg
[~2019-12-21] MED LIST changes: +METO-333 PO
== END | disposition home or self-care (01) ==
LOC: PREOP 06:11
PROVIDERS: ATTEND Obstetrics & Gynecology
DX: Z01.818 Encounter for other preprocedural examination (principal)

== ENCOUNTER → 2020-02-08 | Outpatient (CLI) | payer MEDICARE ==
--- NOTE | 2020-02-08 14:12 | Diagnostic Imaging Report ---
INDICATION: Right hip pain. TIME OF EXAM: 12:28 PM 3 views of the right hip were obtained. Femoral acetabular alignment is normal. Femoral head and neck are intact. No fractures are seen. IMPRESSION: No acute bony abnormality is detected. Dictated by: Dictated on workstation # [id number]
== END ==
LOC: RAD 12:00
PROVIDERS: ATTEND Family Medicine
DX: M25.551 Pain in right hip (principal)
CPT/HCPCS: 73502

== ENCOUNTER 2020-03-09 11:23 | Emergency (ER) | payer MEDICARE ==
[~2020-03-09] VITALS: Ht 157.4 cm; Wt 150.0 kg
[2020-03-09 12:18] LABS: BASOPHILS % (AUTO) 0 % (0-10); EOSINOPHILS # (AUTO) 0.1 10^3/uL (0.0-0.3); EOSINOPHILS % (AUTO) 1 % (0-10); HEMATOCRIT 42 % (35-52); HEMOGLOBIN 13.8 G/DL (11.5-16.0); LYMPHOCYTES # (AUTO) 0.7 X 10^3 (1.0-4.0); LYMPHOCYTES % (AUTO) 8 % (12-44); MEAN CORPUSCULAR HEMOGLOBIN 31 PG (25-34); MEAN CORPUSCULAR HGB CONC 33 G/DL (32-36); MEAN CORPUSCULAR VOLUME 93 FL (80-99); MEAN PLATELET VOLUME 11.4 FL (7.4-10.4); MONOCYTES # (AUTO) 0.9 X 10^3 (0.0-1.0); MONOCYTES % (AUTO) 10 % (0-12); NEUTROPHILS # (AUTO) 7.6 X 10^3 (1.8-7.8); NEUTROPHILS % (AUTO) 81 % (42-75); PLATELET COUNT 230 10^3/uL (130-400); RED CELL DISTRIBUTION WIDTH 14.3 % (10.0-14.5); WHITE BLOOD COUNT 9.4 10^3/uL (4.3-11.0)
[2020-03-09 12:29] LABS: INR 1.1 (0.8-1.4); PROTHROMBIN TIME PATIENT 14.7 SEC (12.2-14.7)
[2020-03-09 12:31] LABS: ALBUMIN 3.9 GM/DL (3.2-4.5)
[2020-03-09 12:32] LABS: CHLORIDE 106 MMOL/L (98-107); POTASSIUM 4.2 MMOL/L (3.6-5.0); SODIUM 138 MMOL/L (135-145)
[2020-03-09 12:33] LABS: CALCIUM 10.4 MG/DL (8.5-10.1)
[2020-03-09 12:34] LABS: GLUCOSE 111 MG/DL (70-105); TOTAL PROTEIN 7.9 GM/DL (6.4-8.2)
[2020-03-09 12:35] LABS: CARBON DIOXIDE 22 MMOL/L (21-32)
[2020-03-09 12:37] LABS: ALKALINE PHOSPHATASE 104 U/L (40-136)
[2020-03-09 12:38] LABS: CREATININE SERUM 0.88 MG/DL (0.60-1.30); GFR ESTIMATED > 60
[2020-03-09 12:39] LABS: BUN/CREATININE RATIO 23
[2020-03-09 12:41] LABS: ALANINE AMINOTRANSFERASE 25 U/L (0-55)
[2020-03-09 12:44] LABS: BAND NEUTROPHILS 1 %; BASOPHILS % (MANUAL) 0 %; EOSINOPHILS % (MANUAL) 4 %; LYMPHOCYTES % (MANUAL) 5 %; MONOCYTES % (MANUAL) 9 %; NEUTROPHILS % (MANUAL) 81 %; RBC MORPH NORMAL
[2020-03-09] MEDS ORDERED: AMOX-358 PO (13:09)
--- NOTE | 2020-03-09 13:09 | ED Integumentary General ---
General Chief Complaint: Skin/Wound Problems Stated Complaint: CELLULITIS Nursing Triage Note: SENT FROM DR ROSADO OFFICE WITH REDNESS AND SWELLING OF R LEG Source: patient Exam Limitations: no limitations History of Present Illness Date Seen by Provider: Mar 09, 2020 Time Seen by Provider: 13:05 Initial Comments Sent from Dr. Dr. Olivera office with reports of right leg redness and swelling. She has had this for about 3 days. She is on Eliquis Timing/Duration: just prior to arrival Severity: moderate Location: extremities Possible Cause: no cause identified Associated Symptoms: denies symptoms Allergies and Home Medications Allergies Coded Allergies: adhesive tape (Verified Allergy, Severe, RASH/ ITCHING, 11/21/18) gemfibrozil (Verified Allergy, Severe, SEPSIS, 12/21/19) codeine (Verified Allergy, Mild, N/V, 12/21/19) hydrocodone (Verified Adverse Reaction, Mild, NAUSEA, 12/21/19) Home Medications Acetaminophen 500 Mg Tablet, 1,000 MG PO Q6H PRN for PAIN-MILD, (Reported) Amoxicillin/Potassium Clav 1 Each Tablet, 1 EACH PO BID Prescribed by: AGUSTIN SHIELDS on 03/09/20 1309 Apixaban 5 Mg Tablet, 5 MG PO BID, (Reported) Atorvastatin Calcium 20 Mg Tablet, 20 MG PO HS, (Reported) C,E,Zinc,Copper 11/Kyofw3u/Lut 1 Each Capsule, 1 CAP PO DAILY, (Reported) Carboxymethylcellulose Sodium 15 Ml Drops, 2 DROPS OU TID PRN for DRY EYES, (Reported) Doxycycline Hyclate 100 Mg Tablet, 100 MG PO BID Prescribed by: AGUSTIN SHIELDS on 03/09/20 1312 Furosemide 80 Mg Tablet, 40 MG PO DAILY, (Reported) take 1/2 of 80mg tab Levothyroxine Sodium 50 Mcg Tablet, 50 MCG PO DAILY, (Reported) Lisinopril 10 Mg Tablet, 10 MG PO HS, (Reported) Metoprolol Tartrate 25 Mg Tablet, 25 MG PO HS, (Reported) [place] 3 Polyunsat Fatty Acids 1,000 Mg Cap, 1,000 MG PO DAILY, (Reported) Potassium Chloride 20 Meq Tab.er.prt, 10 MEQ PO DAILY, (Reported) take 1/2 of 20MEQ tab Patient Home Medication List Home Medication List Reviewed: Yes Review of Systems Review of Systems Constitutional: see HPI EENTM: see HPI Respiratory: no symptoms reported Cardiovascular: no symptoms reported Genitourinary: no symptoms reported Musculoskeletal: no symptoms reported Skin: see HPI Psychiatric/Neurological: No Symptoms Reported Endocrine: No Symptoms Reported Hematologic/Lymphatic: No Symptoms Reported Past Tlrdldd-Eujvzq-Wrwooe Hx Patient Social History Alcohol Use: Denies Use Recreational Drug Use: No Smoking Status: Never a Smoker 2nd Hand Smoke Exposure: No Recent Foreign Travel: No Contact w/Someone Who Travel: No Recent Infectious Disease Expo: No Recent Hopitalizations: No Immunizations Up To Date Date of Pneumonia Vaccine: Nov 04, 2016 Date of Influenza Vaccine: Jun 01, 2019 Seasonal Allergies Seasonal Allergies: Yes Past Medical History Surgeries: Yes (BILAT TKR, CATARACTS, D&C) Gallbladder, Joint Replacement, Pacemaker Respiratory: Yes (PULMONARY HYPERTENSION) Currently Using CPAP: No Currently Using BIPAP: No Cardiac: Yes (AFIB SSS with pacemaker, chf) Atrial Fibrillation, Coronary Artery Disease, Hypertension Neurological: No Reproductive Disorders: No Sexually Transmitted Disease: No HIV/AIDS: No Genitourinary: No Gastrointestinal: No Musculoskeletal: Yes Arthritis Endocrine: Yes Hypothyroidsim HEENT: Yes (GLASSES) Cataract Loss of Vision: Denies Hearing Impairment: Denies Cancer: No Did You Recieve Any Treatments: No Psychosocial: Yes (MILD) Anxiety, Depression Integumentary: No Blood Disorders: No Adverse Reaction/Blood Tranf: No (HAS HAD BLOOD WITH NO REACTION) Family Medical History No Pertinent Family Hx Physical Exam Vital Signs Vital Signs - First Documented 03/09/20 11:30 Temp 36.9 Pulse 82 Resp 18 B/P (MAP) 129/99 (109) Pulse Ox 99 Capillary Refill : Less Than 3 Seconds General Appearance: WD/WN, no apparent distress, obese Neck: non-tender, full range of motion Respiratory: no respiratory distress, no accessory muscle use Gastrointestinal: normal bowel sounds, non tender Extremities: normal range of motion, non-tender Neurologic/Psychiatric: alert, normal mood/affect, oriented x 3 Skin: normal color, warm/dry Skin Problem Location: lower extremities Skin Problem Character: other (cellulitis up to the midcalf. No open or draining wounds) Progress/Results/Core Measures Results/Orders Lab Results Laboratory Tests Test 03/09/20 12:05 Range/Units White Blood Count 9.4 4.3-11.0 10^3/uL Red Blood Count 4.50 4.35-5.85 10^6/uL Hemoglobin 13.8 11.5-16.0 G/DL Hematocrit 42 35-52 % Mean Corpuscular Volume 93 80-99 FL Mean Corpuscular Hemoglobin 31 25-34 PG Mean Corpuscular Hemoglobin Concent 33 32-36 G/DL Red Cell Distribution Width 14.3 10.0-14.5 % Platelet Count 230 130-400 10^3/uL Mean Platelet Volume 11.4 H 7.4-10.4 FL Neutrophils (%) (Auto) 81 H 42-75 % Lymphocytes (%) (Auto) 8 L 12-44 % Monocytes (%) (Auto) 10 0-12 % Eosinophils (%) (Auto) 1 0-10 % Basophils (%) (Auto) 0 0-10 % Neutrophils # (Auto) 7.6 1.8-7.8 X 10^3 Lymphocytes # (Auto) 0.7 L 1.0-4.0 X 10^3 Monocytes # (Auto) 0.9 0.0-1.0 X 10^3 Eosinophils # (Auto) 0.1 0.0-0.3 10^3/uL Basophils # (Auto) 0.0 0.0-0.1 10^3/uL Neutrophils % (Manual) 81 % Lymphocytes % (Manual) 5 % Monocytes % (Manual) 9 % Eosinophils % (Manual) 4 % Basophils % (Manual) 0 % Band Neutrophils 1 % Blood Morphology Comment NORMAL Prothrombin Time 14.7 12.2-14.7 SEC INR Comment 1.1 0.8-1.4 Sodium Level 138 135-145 MMOL/L Potassium Level 4.2 3.6-5.0 MMOL/L Chloride Level 106 98-107 MMOL/L Carbon Dioxide Level 22 21-32 MMOL/L Anion Gap 10 5-14 MMOL/L Blood Urea Nitrogen 20 H 7-18 MG/DL Creatinine 0.88 0.60-1.30 MG/DL Estimat Glomerular Filtration Rate > 60 BUN/Creatinine Ratio 23 Glucose Level 111 H 70-105 MG/DL Lactic Acid Level 1.78 0.50-2.00 MMOL/L Calcium Level 10.4 H 8.5-10.1 MG/DL Corrected Calcium 10.5 H 8.5-10.1 MG/DL Total Bilirubin 1.0 0.1-1.0 MG/DL Aspartate Amino Transf (AST/SGOT) 22 5-34 U/L Alanine Aminotransferase (ALT/SGPT) 25 0-55 U/L Alkaline Phosphatase 104 40-136 U/L Total Protein 7.9 6.4-8.2 GM/DL Albumin 3.9 3.2-4.5 GM/DL My Orders Orders - AGUSTIN SHIELDS [employer] Cbc With Automated Diff (03/09/20 11:34) Comprehensive Metabolic Panel (03/09/20 11:34) Ed Iv/Invasive Line Start (03/09/20 11:34) Blood Culture (03/09/20 11:34) Lactic Acid Analyzer (03/09/20 11:34) Protime With Inr (03/09/20 11:34) Manual Differential (03/09/20 12:05) Ceftriaxone For Iv Use (Rocephin For I (03/09/20 13:15) Doxycycline Hyclate Tablet (Vibramycin T (03/09/20 13:15) Medications Given in ED Current Medications Medications Dose Ordered Sig/[place] Route Start Time Stop Time Status Last Admin Dose Admin Ceftriaxone Sodium 2000 mg/ Sterile Water 20 ml @ 240 mls/hr ONCE ONCE IV 03/09/20 13:15 03/09/20 13:19 DC 03/09/20 13:34 240 MLS/HR Vital Signs/I&O 03/09/20 11:30 Temp 36.9 Pulse 82 Resp 18 B/P (MAP) 129/99 (109) Pulse Ox 99 Blood Pressure Mean: 109 Departure Communication (Admissions) Pt advises me she does not want to stay in the hospital. After reviewing her labs and vitals I suppose we could do a dose of IV antibiotics here then discharged home on oral antibiotics as this would be her preference. Impression Primary Impression: Cellulitis of right leg Disposition: 01 HOME, SELF-CARE Condition: Stable Departure-Patient Inst. Decision time for Depature: 13:08 Referrals: ASHLI OLIVERA DO (PCP/Family) Primary Care Physician Patient Instructions: Cellulitis (Skin Infection), Adult (DC) Add. Discharge Instructions: Office Dr. Olivera this week. Return to ER for any fevers chills or worsening symptoms. All discharge instructions reviewed with patient and/or family. Voiced understanding. Scripts Doxycycline Hyclate (Doxycycline Hyclate) 100 Mg Tablet 100 MG PO BID, #20 TAB 0 Refills Prov: AGUSTIN SHIELDS APRN 03/09/20 Amoxicillin/Potassium Clav (Augmentin 875-125 Tablet) 1 Each Tablet 1 EACH PO BID, #14 TAB 0 Refills Prov: AGUSTIN SHIELDS APRN 03/09/20 AGUSTIN SHIELDS APRN Mar 09, 2020 13:09
[2020-03-09] MEDS ORDERED: DOXY100T2 PO (13:12)
[2020-03-09] MEDS ORDERED: cefTRIAXone FOR IV USE 2,000 MG in WATER (STERILE) FOR INJECTION 20 ML IV ONE (13:15)
[2020-03-09] MEDS ORDERED: DOXYCYCLINE 100 MG (VIBRAMYCIN) TABLET PO SCH (13:15)
--- NOTE | 2020-03-09 13:16 | NUR ---
LAB CALLED TO DRAW 2ND BLOOD CULTURE
--- NOTE | 2020-03-09 13:19 | NUR ---
LAB HERE TO DRAW BLOOD CULTURE.
[2020-03-09 13:46] VITALS: BP 132/77
== END 2020-03-09 13:46 | disposition home or self-care (01) ==
LOC: EDUNIT# 11:23 → ER 11:24
DX: L03.115 Cellulitis of right lower limb (principal); I48.91 Unspecified atrial fibrillation; I11.0 Hypertensive heart disease with heart failure; I25.10 Atherosclerotic heart disease of native coronary artery without angina pectoris; I50.9 Heart failure, unspecified; E03.9 Hypothyroidism, unspecified; Z79.890 Hormone replacement therapy; Z79.01 Long term (current) use of anticoagulants; Z88.8 Allergy status to other drugs, medicaments and biological substances; Z95.0 Presence of cardiac pacemaker; Z96.653 Presence of artificial knee joint, bilateral; Z88.5 Allergy status to narcotic agent
CPT/HCPCS: 36415; 80053; 83605; 85007; 85027; 85610; 87040

== ENCOUNTER → 2020-05-18 | Outpatient (CLI) | payer MEDICARE ==
[~2020-05-18] VITALS: Ht 160 cm; Wt 163.0 kg
[~2020-05-18] MED LIST changes: +AMOX-358 PO; +CALC-664 PO; -CALC1TAB94 PO; +CATHETER FLUSH 10 ML SYR IV PRN; +DOXY100T2 PO; +REGADENOSON 0.4 MG/5 ML SYR (LEXISCAN) IV ONE
[2020-05-18 12:52] VITALS: BP 150/77
--- NOTE | 2020-05-18 17:27 | Cardiology Stress Test Report ---
Stress Test Report Date of Procedure/Referring: Date of Procedure: May 18, 2020 PCP Ginny Fountain Admitting Physician Cesario Lobato DO Indications: Congestive heart failure Baseline Heart Rate: 76 Baseline Blood Pressure: Blood Pressure Systolic: 150 Blood Pressure Diastolic: 77 Baseline Vitals Vital Signs Date Time Temp Pulse Resp B/P (MAP) Pulse Ox O2 Delivery O2 Flow Rate FiO2 05/18/20 12:52 62 18 150/77 (101) 97 Room Air Baseline EKG: Baseline EKG: ventricular paced rhythm Summary After explaining the procedure to the patient, she signed a consent and then brought to the stress nuclear laboratory. Patient received 0.4 mg Lexiscan for stress test, ECG, heart rate and blood pressure were monitored continuously. Resting and stress dose of radio tracer were injected, imaging was acquired and reviewed in short axis, horizontal long axis and vertical long axis views. TID: 1.08 SSS: 0 SDS: 0 EF: 57 1. Patient tolerated Lexiscan well 2. Baseline paced rhythm persisted during test 3. Extracardiac attenuation with mild decrease uptake at the inferoapex which is fixed with no significant ischemia or infarction 4. Normal LV function, EF 57% ANI DELUNA MD May 18, 2020 17:27
== END ==
LOC: CARD 11:00
PROVIDERS: ATTEND Physician Assistant
DX: I11.0 Hypertensive heart disease with heart failure (principal); I50.9 Heart failure, unspecified; I65.29 Occlusion and stenosis of unspecified carotid artery; E78.5 Hyperlipidemia, unspecified
CPT/HCPCS: 78452; 93017; 93306; A9502

== ENCOUNTER 2021-01-11 11:51 | Observation (INO) | payer MEDICARE ==
[~2021-01-11] VITALS: Ht 157.5 cm; Wt 173.3 kg
[~2021-01-11 11:51] MED LIST changes: +CALC-1026 PO; -CALC-664 PO; -CATHETER FLUSH 10 ML SYR IV PRN; -LISI10TA2 PO; +LISI10TA25 PO; -REGADENOSON 0.4 MG/5 ML SYR (LEXISCAN) IV ONE
--- NOTE | 2021-01-11 12:49 | Diagnostic Imaging Report ---
INDICATION: Shortness of air. TECHNIQUE: Single view chest 12:15 PM. CORRELATION STUDY: 11/21/2018 FINDINGS: Left-sided pacemaker. Cardiac enlargement appears increased. Vasculature slightly more prominent. Lungs overall appear generally clear without definitive infiltrate. IMPRESSION: 1. Slight increase in severity of cardiac enlargement with presence mild vascular prominence. Overall increased from prior. Dictated by: Dictated on workstation # [id number]
[2021-01-11 13:12] LABS: ALBUMIN 3.9 GM/DL (3.2-4.5); CHLORIDE 106 MMOL/L (98-107); POTASSIUM 4.6 MMOL/L (3.6-5.0); SODIUM 141 MMOL/L (135-145)
[2021-01-11 13:13] LABS: CALCIUM 9.6 MG/DL (8.5-10.1)
[2021-01-11 13:14] LABS: GLUCOSE 98 MG/DL (70-105); TOTAL PROTEIN 7.3 GM/DL (6.4-8.2)
[2021-01-11 13:15] LABS: CARBON DIOXIDE 26 MMOL/L (21-32)
[2021-01-11] MEDS ORDERED: RT-ALBUTEROL/IPRATROPIUM 3 ML (DUONEB) VIAL INH ONE (13:15)
[2021-01-11 13:16] LABS: BILIRUBIN,TOTAL 1.1 MG/DL (0.1-1.0)
[2021-01-11 13:17] LABS: ALKALINE PHOSPHATASE 94 U/L (40-136)
[2021-01-11 13:18] LABS: CREATININE SERUM 0.77 MG/DL (0.60-1.30); GFR ESTIMATED > 60
[2021-01-11 13:19] LABS: BUN/CREATININE RATIO 19
[2021-01-11 13:19] LABS: BILIRUBIN,URINE NEGATIVE (NEGATIVE); CLARITY,URINE CLEAR; COLOR,URINE YELLOW; GLUCOSE, URINE (UA) NEGATIVE (NEGATIVE); KETONES,URINE NEGATIVE (NEGATIVE); LEUKOCYTE ESTERASE ,URINE 1+ (NEGATIVE); NITRITE,URINE NEGATIVE (NEGATIVE); PH,URINE 5.5 (5-9); PROTEIN,URINE NEGATIVE (NEGATIVE)
[2021-01-11 13:20] LABS: MAGNESIUM 1.9 MG/DL (1.6-2.4)
[2021-01-11 13:21] LABS: ALANINE AMINOTRANSFERASE 23 U/L (0-55)
--- NOTE | 2021-01-11 13:31 | ED General ---
General Chief Complaint: General Problems/Pain Stated Complaint: WEAKNESS Nursing Triage Note: TO ED PER EMS FROM HOME REPORTS YESTERDAY WAS TO WEAK TO GET OUT OF BED STAYED IN BED TILL DAUGHTER CAME OVER LAST NIGHT AND PUT HER IN THE RECLINER TO SLEEP. SPENT THE NIGHT IN THE RECLINER. DAUGHTER CAME OVER TODAY AND CALL EMS. PATIENT DID USE WALKER TO WALK FROM RECLINER TO EMS COT. Nursing Sepsis Screen: No Definite Risk Source of Information: Patient Exam Limitations: No Limitations History of Present Illness Date Seen by Provider: January 11, 2021 Time Seen by Provider: 11:52 Initial Comments This 80-year-old woman presents to the emergency room via EMS with complaints of generalized weakness starting yesterday. She was unable to get up and contacted her daughter who came and helped her get out of bed. She then slept in the recliner through the night and was unable to get up today. Once assisted out of her recliner she was able to ambulate to the EMS cot. She does have significant lower extremity edema as well as obesity. She has previously been on Lasix but did not tolerate it well due to frequent urination. She has a history of atrial fibrillation for which she sees Dr. Roger. Dr. Olivera is her primary care provider. She appears to have some wheezing but denies any history of COPD or asthma. She reports formal testing for COPD was negative. She denies any recent cough or fever, however she does admit to the wheezing. Allergies and Home Medications Allergies Coded Allergies: adhesive tape (Verified Allergy, Severe, RASH/ ITCHING, 11/21/18) gemfibrozil (Verified Allergy, Severe, SEPSIS, 12/21/19) codeine (Verified Allergy, Mild, N/V, 12/21/19) hydrocodone (Verified Adverse Reaction, Mild, NAUSEA, 12/21/19) Home Medications Apixaban 5 Mg Tablet, 5 MG PO BID, (Reported) Last Action: Reviewed Atorvastatin Calcium 20 Mg Tablet, 20 MG PO HS, (Reported) Last Action: Continued Levothyroxine Sodium 50 Mcg Tablet, 50 MCG PO DAILY, (Reported) Last Action: Continued Lisinopril 10 Mg Tablet, 10 MG PO HS, (Reported) Last Action: Continued Lutein/Zeaxanthin 1 Each Capsule, 1 EACH PO DAILY, (Reported) Last Action: Held Metoprolol Succinate 25 Mg Tab.er.24h, 25 MG PO HS, (Reported) Last Action: Continued [place] 3 Polyunsat Fatty Acids 1,000 Mg Cap, 1,000 MG PO DAILY, (Reported) Last Action: Held Potassium Chloride 10 Meq Tablet.er, 10 MEQ PO Q48H, (Reported) Last Action: Continued [Apply Cider Gummy] , 1 EA PO TID, (Reported) Last Action: Held Patient Home Medication List Home Medication List Reviewed: Yes Review of Systems Review of Systems Constitutional: see HPI, weakness EENTM: no symptoms reported Respiratory: see HPI Cardiovascular: see HPI Gastrointestinal: no symptoms reported Genitourinary: no symptoms reported : No Musculoskeletal: no symptoms reported Skin: no symptoms reported Psychiatric/Neurological: No Symptoms Reported Hematologic/Lymphatic: No Symptoms Reported Immunological/Allergic: no symptoms reported Past Iwprtpw-Wutekr-Lrfvie Hx Past Med/Social Hx: Reviewed Nursing Past Med/Soc Hx Patient Social History Alcohol Use: Denies Use Smoking Status: Never a Smoker 2nd Hand Smoke Exposure: No Recent Infectious Disease Expo: No Recent Hopitalizations: No Immunizations Up To Date Date of Pneumonia Vaccine: Nov 04, 2016 Date of Influenza Vaccine: Jun 01, 2019 Seasonal Allergies Seasonal Allergies: Yes Past Medical History Surgeries: Yes (BILAT TKR, CATARACTS, D&C) Gallbladder, Joint Replacement, Pacemaker Respiratory: Yes (PULMONARY HYPERTENSION) Currently Using CPAP: No Currently Using BIPAP: No Cardiac: Yes (AFIB SSS with pacemaker, chf) Atrial Fibrillation, Coronary Artery Disease, Hypertension Neurological: No : No Reproductive Disorders: No Sexually Transmitted Disease: No HIV/AIDS: No Genitourinary: No Gastrointestinal: No Musculoskeletal: Yes Arthritis Endocrine: Yes Hypothyroidsim HEENT: Yes (GLASSES) Cataract Loss of Vision: Denies Hearing Impairment: Denies Cancer: No Did You Recieve Any Treatments: No Psychosocial: Yes (MILD) Anxiety, Depression Integumentary: No Blood Disorders: No Adverse Reaction/Blood Tranf: No (HAS HAD BLOOD WITH NO REACTION) Family Medical History No Pertinent Family Hx Physical Exam Vital Signs Vital Signs - First Documented 01/11/21 01/11/21 11:54 13:39 Temp 36.8 Pulse 69 Resp 18 B/P (MAP) 149/92 (111) Pulse Ox 97 O2 Delivery Room Air Capillary Refill : Less Than 3 Seconds Height, Weight, BMI Height: 5'3.00" Weight: 339lbs. 0.0oz. 153.889542sx; 64.00 BMI Method: General Appearance: No Apparent Distress, WD/WN, Obese HEENT: PERRL/EOMI, Normal ENT Inspection, Pharynx Normal Neck: Normal Inspection Respiratory: No Accessory Muscle Use, No Respiratory Distress; No Crackles; Wheezing Cardiovascular: Regular Rate, Rhythm, No Murmur, Other (Marked LE edema) Gastrointestinal: Normal Bowel Sounds, Non Tender, Soft Extremity: Pedal Edema, Swelling, Other (Mild erythema of the right distal lower leg and foot. Raised lesion on the anterior left rodriguez that could resemble fungal or neoplastic lesion. Small sore on the dorsal left foot.) Neurologic/Psychiatric: Alert, Oriented x3, No Motor/Sensory Deficits, Normal M ood/Affect, bleach supervisor II-XII Norm as Tested Skin: Normal Color, Warm/Dry Progress/Results/Core Measures Suspected Sepsis Recent Fever Within 48 Hours: No Infection Criteria Present: None New/Unexplained Altered Menta: No Sepsis Screen: No Definite Risk SIRS Temperature: Pulse: 69 Respiratory Rate: 18 Laboratory Tests 01/11/21 13:31: White Blood Count 8.2 Blood Pressure 149 /92 Mean: 111 Laboratory Tests 01/11/21 12:54: Creatinine 0.77, Total Bilirubin 1.1H 01/11/21 13:31: Platelet Count 186 Results/Orders Lab Results Laboratory Tests Test 01/11/21 12:54 01/11/21 13:14 01/11/21 13:31 Range/Units Sodium Level 141 135-145 MMOL/L Potassium Level 4.6 3.6-5.0 MMOL/L Chloride Level 106 98-107 MMOL/L Carbon Dioxide Level 26 21-32 MMOL/L Anion Gap 9 5-14 MMOL/L Blood Urea Nitrogen 15 7-18 MG/DL Creatinine 0.77 0.60-1.30 MG/DL Estimat Glomerular Filtration Rate > 60 BUN/Creatinine Ratio 19 Glucose Level 98 70-105 MG/DL Calcium Level 9.6 8.5-10.1 MG/DL Corrected Calcium 9.7 8.5-10.1 MG/DL Magnesium Level 1.9 1.6-2.4 MG/DL Total Bilirubin 1.1 H 0.1-1.0 MG/DL Aspartate Amino Transf (AST/SGOT) 31 5-34 U/L Alanine Aminotransferase (ALT/SGPT) 23 0-55 U/L Alkaline Phosphatase 94 40-136 U/L B-Type Natriuretic Peptide 76.3 <100.0 PG/ML Total Protein 7.3 6.4-8.2 GM/DL Albumin 3.9 3.2-4.5 GM/DL Thyroid Stimulating Hormone (TSH) 3.30 0.35-4.94 UIU/ML Free Thyroxine 1.18 0.70-1.48 NG/DL TSH Marks Testing 3.30 0.35-4.94 UIU/ML Urine Color YELLOW Urine Clarity CLEAR Urine pH 5.5 5-9 Urine Specific [place] 1.010 L 1.016-1.022 Urine Protein NEGATIVE NEGATIVE Urine Glucose (UA) NEGATIVE NEGATIVE Urine Ketones NEGATIVE NEGATIVE Urine Nitrite NEGATIVE NEGATIVE Urine Bilirubin NEGATIVE NEGATIVE Urine Urobilinogen 0.2 < = 1.0 MG/DL Urine Leukocyte Esterase 1+ H NEGATIVE Urine RBC (Auto) TRACE-I NEGATIVE Urine RBC RARE /HPF Urine WBC 10-25 H /HPF Urine Squamous Epithelial Cells 5-10 /HPF Urine Crystals NONE /LPF Urine Bacteria FEW H /HPF Urine Casts NONE /LPF Urine Mucus NEGATIVE /LPF Urine Culture Indicated YES White Blood Count 8.2 4.3-11.0 10^3/uL Red Blood Count 4.69 3.80-5.11 10^6/uL Hemoglobin 14.7 11.5-16.0 g/dL Hematocrit 46 35-52 % Mean Corpuscular Volume 99 80-99 fL Mean Corpuscular Hemoglobin 31 25-34 pg Mean Corpuscular Hemoglobin Concent 32 32-36 g/dL Red Cell Distribution Width 13.3 10.0-14.5 % Platelet Count 186 130-400 10^3/uL Mean Platelet Volume 11.1 9.0-12.2 fL Immature Granulocyte % (Auto) 0 % Neutrophils (%) (Auto) 72 42-75 % Lymphocytes (%) (Auto) 14 12-44 % Monocytes (%) (Auto) 12 0-12 % Eosinophils (%) (Auto) 2 0-10 % Basophils (%) (Auto) 0 0-10 % Neutrophils # (Auto) 5.9 1.8-7.8 10^3/uL Lymphocytes # (Auto) 1.1 1.0-4.0 10^3/uL Monocytes # (Auto) 0.9 0.0-1.0 10^3/uL Eosinophils # (Auto) 0.1 0.0-0.3 10^3/uL Basophils # (Auto) 0.0 0.0-0.1 10^3/uL Immature Granulocyte # (Auto) 0.0 0.0-0.1 10^3/uL My Orders Orders - ABAD PHAM MD BNP (01/11/21 12:09) Cbc With Automated Diff (01/11/21 12:09) Comprehensive Metabolic Panel (01/11/21 12:09) Magnesium (01/11/21 12:09) Thyroid Analyzer (01/11/21 12:09) Ua Culture If Indicated (01/11/21 12:09) Albuterol Inhaler (Ventolin Hfa) (01/11/21 14:00) Chest 1 View, Ap/Pa Only (01/11/21 12:09) Thyroid Stimulating Hormone (01/11/21 12:12) Free T4 (Free Thyroxine) (01/11/21 12:12) Albuterol/Ipra Inhalation Soln (Duoneb I (01/11/21 13:15) Svn Small Volume Nebulizer (01/11/21 13:04) Urine Culture (01/11/21 13:14) Venous Access Request Order (01/11/21 14:18) Ceftriaxone For Iv Use (Rocephin For I (01/11/21 14:30) Medications Given in ED Current Medications Medications Dose Ordered Sig/[place] Route Start Time Stop Time Status Last Admin Dose Admin Albuterol/ Ipratropium 3 ml ONCE ONCE INH 01/11/21 13:15 01/11/21 13:16 DC 01/11/21 13:39 3 ML Vital Signs/I&O 01/11/21 01/11/21 11:54 13:39 Temp 36.8 Pulse 69 Resp 18 B/P (MAP) 149/92 (111) Pulse Ox 97 99 O2 Delivery Room Air Capillary Refill : Less Than 3 Seconds Blood Pressure Mean: 111 Progress Note : Progress Note Work-up was fairly unremarkable except for presence of urinary tract infection. Patient has functional safety issues at home. She would benefit from admission for treatment of UTI and therapy services as well as wound care. There is question of cellulitis in the right lower extremity as the skin color changes are new. She also has a sore on the left foot and a lesion on the left rodriguez that should be addressed. She would like to speak with someone about assistance with setting up other home services such as in-home physical therapy and wound care. I discussed CODE STATUS and she would like to remain full code. She ultimately would like to transition home with additional services. Plan was discussed with patient and her daughter. A DuoNeb treatment was given for her wheezing. She did not think this improved her situation significantly. Patient's daughter does state that patient's apartment is a "handicapped" apartment but she could use some assistance with mobility techniques and possibly some other adaptive equipment. She does use a walker some at home. IV access has not been a problem with this patient. We have ordered a midline and IV Rocephin to treat the urinary tract infection and possible cellulitis. Diagnostic Imaging Diagonstic Imaging: Xray Plain Films/CT/US/NM/MRI: chest Comments Chest x-ray viewed by me and report reviewed. See report below: NAME: JHONNY MCELROY [facility] REC#: [id number] PT STATUS: REG ER : 1940 PHYSICIAN: ABAD PHAM MD ADMIT DATE: 01/11/21/ER Draft Date of Exam:01/11/21 CHEST 1 VIEW, AP/PA ONLY INDICATION: Shortness of air. TECHNIQUE: Single view chest 12:15 PM. CORRELATION STUDY: 11/21/2018 FINDINGS: Left-sided pacemaker. Cardiac enlargement appears increased. Vasculature slightly more prominent. Lungs overall appear generally clear without definitive infiltrate. IMPRESSION: 1. Slight increase in severity of cardiac enlargement with presence mild vascular prominence. Overall increased from prior. Dictated on workstation # [id number] Dict: 01/11/21 1246 Trans: 01/11/21 1249 [id number] Interpreted by: WALTER LEE DO Departure Communication (Admissions) Time/Spoke to Admitting Phy: 14:10 Dr. Scott Impression Primary Impression: Urinary tract infection Qualified Codes: N39.0 - Urinary tract infection, site not specified Additional Impressions: Debility Edema Qualified Codes: R60.9 - Edema, unspecified Cellulitis of right lower extremity Wheezing Disposition: 09 ADMITTED INPATIENT Condition: Stable Admissions Decision to Admit Reason: Admit from ER (General) Decision to Admit/Date: January 11, 2021 Time/Decision to Admit Time: 14:10 Departure-Patient Inst. Referrals: ASHLI OLIVERA DO (PCP/Family) Primary Care Physician ABAD PHAM MD January 11, 2021 13:31
[2021-01-11 13:37] LABS: BASOPHILS % (AUTO) 0 % (0-10); EOSINOPHILS # (AUTO) 0.1 10^3/uL (0.0-0.3); EOSINOPHILS % (AUTO) 2 % (0-10); HEMATOCRIT 46 % (35-52); HEMOGLOBIN 14.7 g/dL (11.5-16.0); LYMPHOCYTES # (AUTO) 1.1 10^3/uL (1.0-4.0); LYMPHOCYTES % (AUTO) 14 % (12-44); MEAN CORPUSCULAR HEMOGLOBIN 31 pg (25-34); MEAN CORPUSCULAR HGB CONC 32 g/dL (32-36); MEAN CORPUSCULAR VOLUME 99 fL (80-99); MEAN PLATELET VOLUME 11.1 fL (9.0-12.2); MONOCYTES # (AUTO) 0.9 10^3/uL (0.0-1.0); MONOCYTES % (AUTO) 12 % (0-12); NEUTROPHILS # (AUTO) 5.9 10^3/uL (1.8-7.8); NEUTROPHILS % (AUTO) 72 % (42-75); PLATELET COUNT 186 10^3/uL (130-400); WHITE BLOOD COUNT 8.2 10^3/uL (4.3-11.0)
[2021-01-11 13:42] LABS: FREE T4 (FREE THYROXINE) 1.18 NG/DL (0.70-1.48)
[2021-01-11 13:47] LABS: BACTERIA,URINE FEW /HPF; RBC,URINE RARE /HPF
[2021-01-11] MEDS ORDERED: RT-ALBUTEROL INHALER HFA (VENTOLIN HFA) 18 GM IH ONE (14:00)
[2021-01-11] MEDS ORDERED: cefTRIAXone FOR IV USE 1,000 MG in WATER (STERILE) FOR INJECTION 10 ML IV ONE (14:30)
[2021-01-11] MEDS ORDERED: cefTRIAXone 1,000 MG IV (ROCEPHIN) VIAL ONE (15:03)
[2021-01-11] MEDS ORDERED: CATHETER FLUSH 10 ML SYR IV PRN (15:45)
[2021-01-11] MEDS ORDERED: RT-ALBUTEROL SULF 2.5 MG/3 ML PRE-MIX VIAL IH PRN (15:45)
[2021-01-11 15:50] VITALS: BP 146/96
[2021-01-11] MEDS ORDERED: [UNRECOGNIZED DRUG - OTHER] PO (15:51)
[2021-01-11] MEDS ORDERED: POTA10TA PO (15:51)
[2021-01-11] MEDS ORDERED: LUTE1CAP7 PO (15:51)
[2021-01-11] MEDS ORDERED: MTP25TSR PO (15:51)
[2021-01-11] MEDS ORDERED: ACETAMINOPHEN 500 MG TAB (TYLENOL) PO PRN (16:45)
[2021-01-11] MEDS ORDERED: fentaNYL INJ 100 MCG/2 ML AMP IVP PRN (16:45)
[2021-01-11 19:51] VITALS: BP 122/62
[2021-01-11] MEDS: APIXABAN 5 MG (ELIQUIS) TABLET PO SCH (20:17)
[2021-01-11] MEDS: lisINopril 10 MG (PRINIVIL) TABLET PO SCH (20:17)
[2021-01-11] MEDS: CATHETER FLUSH 10 ML SYR IV SCH (20:19)
[2021-01-12 00:55] VITALS: BP 128/75
[2021-01-12 04:45] VITALS: BP 122/56
[2021-01-12] MEDS: LEVOTHYROXINE 50 MCG (LEVOTHROID) TAB PO SCH (05:55)
[2021-01-12] MEDS: CATHETER FLUSH 10 ML SYR IV SCH ×3 (05:55→20:20)
[2021-01-12] MEDS: KCL 10 MEQ TAB (MICRO K) PO SCH (05:55)
[2021-01-12 08:00] VITALS: BP 97/60
[2021-01-12] MEDS: APIXABAN 5 MG (ELIQUIS) TABLET PO SCH ×2 (08:40→20:13)
--- NOTE | 2021-01-12 09:54 | History & Physical-Hospitalist ---
History of Present Illness HPI/Chief Complaint Pt is a 80yoCF with a PMH of HTN, HLD, chronic a-fib, hypothyroidism who presented to the ER due to generalized weakness. Her daughter is at bedside and states that she has been more debilitated over the past 6 months and patient agrees that she is often tired but starting on Saturday she couldn't even get out of bed. She laid in bed for over 12 hours because she couldn't reach her panic button or phone. They brought her to the ER yesterday when she was still quite weak and was found to have urinary tract infection and possible cellulitis of her leg. She reports feeling better today but not quite back to normal. Source: patient Date Seen 01/12/21 Time Seen by a Provider: 09:30 Attending Physician José Scott MD PCP Cesario Lobato DO Referring Physician Date of Admission January 11, 2021 at 14:19 Home Medications & Allergies Home Medications Reviewed patient Home Medication Reconciliation performed by pharmacy medication reconciliations endoscope technician and/or nursing. Patients Allergies have been reviewed. Allergies Allergies Coded Allergies adhesive tape (Verified Allergy, Severe, RASH/ ITCHING, 11/21/18) gemfibrozil (Verified Allergy, Severe, SEPSIS, 12/21/19) codeine (Verified Allergy, Mild, N/V, 12/21/19) hydrocodone (Verified Adverse Reaction, Mild, NAUSEA, 12/21/19) Past Medical/Social/Family Hx Patient Social History Employed/Student: unemployed Tobacco Use?: No Smoking Status: Never a Smoker Smokeless Tobacco Frequency: Never a User Use of E-Cig and/or Vaping dev: No Substance use?: No Alcohol Use?: No Pt stated abuse/neglect: No Immunizations Up To Date Influenza Vaccine Up-to-Date: No; Not Current Tetanus Booster (TDap): Unknown Hepatitis A: No Hepatitis B: No Date of Pneumonia Vaccine: Nov 04, 2016 Current Status status: No status: No Advance Directives: No Communicates: Verbally Primary Language: Malay Preferred Spoken Language: Malay Is interpretation needed?: No Implanted or Applied Medical D: Pacemaker Past Medical History HTN, HLD, hypothyroidim, A-fib Family Medical History Family Hx: non-contributory Review of Systems Constitutional: No chills, No fever; malaise, weakness Respiratory: No cough, No short of breath Cardiovascular: No chest pain, No edema, No palpitations Gastrointestinal: no symptoms reported; No abdominal pain, No constipation, No nausea, No vomiting Genitourinary: see HPI Musculoskeletal: no symptoms reported Skin: no symptoms reported Psychiatric/Neurological: No Symptoms Reported Physical Exam Physical Exam Vital Signs Vital Signs - First Documented 01/11/21 01/11/21 11:54 13:39 Temp 36.8 Pulse 69 Resp 18 B/P (MAP) 149/92 (111) Pulse Ox 97 O2 Delivery Room Air Capillary Refill : Less Than 3 Seconds Height, Weight, BMI Height: 5'3.00" Weight: 339lbs. 0.0oz. 153.827525wa; 69.86 BMI Method: General Appearance: No Apparent Distress, WD/WN, Chronically ill, Obese HEENT: PERRL/EOMI, Moist Mucous Membranes Neck: Normal Inspection, Supple Respiratory: Lungs Clear, No Respiratory Distress Cardiovascular: Regular Rate, Rhythm, No Murmur Gastrointestinal: Normal Bowel Sounds, Non Tender, Soft Extremity: No Calf Tenderness, Pedal Edema, Swelling Neurologic/Psychiatric: Alert, Oriented x3, Normal Mood/Affect Skin: Other (significant lymphedema of both lower extremities, she has skin break down behind her knees as well ) Results Results/Procedures Labs Laboratory Tests 01/11/21 12:54 01/11/21 13:31 Patient resulted labs reviewed. Imaging: Reviewed Imaging Report Imaging [facility], [place] NAME: JHONNY MCELROY [facility] REC#: [id number] PT STATUS: ADM Marcia : 1940 PHYSICIAN: ABAD PHAM MD ADMIT DATE: 01/11/21 Signed Date of Exam:01/11/21 CHEST 1 VIEW, AP/PA ONLY INDICATION: Shortness of air. TECHNIQUE: Single view chest 12:15 PM. CORRELATION STUDY: 11/21/2018 FINDINGS: Left-sided pacemaker. Cardiac enlargement appears increased. Vasculature slightly more prominent. Lungs overall appear generally clear without definitive infiltrate. IMPRESSION: 1. Slight increase in severity of cardiac enlargement with presence mild vascular prominence. Overall increased from prior. Dictated by: Dictated on workstation # [id number] Dict: 01/11/21 1246 Trans: 01/11/21 1520 [id number] Interpreted by: WALTER LEE DO Electronically signed by: WALTER LEE DO 01/11/21 1520 Assessment/Plan Admission Diagnosis UTI Admission Status: Observation Assessment and Plan UTI Generalized Weakness Continue IV abx PT/OT Consider IRF Await cultures Not sepsis Hypothyroidism TSH 3.3 HTN HLD pAF Continue home meds when med rec done DVT ppx: Already on anticoagulation Diagnosis/Problems Diagnosis/Problems (1) Essential (primary) hypertension (2) HLD (hyperlipidemia) (3) Hypothyroidism (4) Atrial fibrillation (5) Urinary tract infection Status: Acute Qualifiers: Urinary tract infection type: site unspecified Hematuria presence: without hematuria Qualified Codes: N39.0 - Urinary tract infection, site not specified (6) Edema Status: Acute Qualifiers: Edema type: unspecified Qualified Codes: R60.9 - Edema, unspecified (7) Debility Status: Acute JOSÉ SCOTT MD January 12, 2021 09:54
--- NOTE | 2021-01-12 10:44 | Physical Therapy Evaluation ---
PT Evaluation-General Medical Diagnosis Admission Date January 11, 2021 at 14:19 Medical Diagnosis: UTI/debility/cellulitis/edema Onset Date: January 11, 2021 Therapy Diagnosis Therapy Diagnosis: debility Height/Weight Height (Feet): 5 Height (Inches): 3.00 Weight (Pounds): 339 Weight (Ounces): 0.0 Precautions Precautions/Isolations: Fall Prevention, Standard Precautions Weight Bear Status Right Lower Extremity: Right Weight Bearing/Tolerated Left Lower Extremity: Left Weight Bearing/Tolerated Referral Physician: Tyler Reason for Referral: Evaluation/Treatment Medical History Pertinent Medical History: Atrial Fib, CAD, HTN Additional Medical History pacemaker Current History EMS secondary to weakness (was able to ambulate to EMS cot) Reviewed History: Yes Social History Home: Apartment Current Living Status: Alone Entry Into Home: Level Entry Prior Prior Level of Function SCALE: Activities may be completed with or without assistive devices. 5-Kxykkrzrii-polwlyo completes the activity by him/herself with no assistance from a helper. 5-Set-up or Clean-up Assistance-helper sets up or cleans up; patient completes activity. [place] assists only prior to or following the activity. 4-Supervision or Touching Assistance-helper provides verbal cues and/or touching/steadying and/or contact guard assistance as patient completes activity. Assistance may be provided throughout the activity or intermittently. 3-Partial/Moderate Assistance-helper does LESS THAN HALF the effort. [place] lifts, holds or supports trunk or limbs, but provides less than half the effort. 2-Substantial/Maximal Assistance-helper does MORE THAN HALF the effort. [place] lifts or holds trunk or limbs and provides more than half the effort. 0-Knseidqff-tvrvtg does ALL the effort. Patient does none of the effort to complete the activity. Or, the assistance of 2 or more helpers is required for the patient to complete the activity. If activity was not attempted, code reason: 7-Patient Refused. 9-Not Applicable-not attempted and the patient did not perform the activity before the current illness, exacerbation or injury. 10-Not Attempted due to Environmental Limitations-(lack of equipment, weather restraints, etc.). 88-Not Attempted due to Medical Conditions or Safety Concerns. Bed Mobility: 6 Transfers (B,C,W/C): 6 Gait: 6 Stairs: 9 Indoor Mobility (Ambulation): Independent Stairs: Not Applicalbe Prior Devices Use: Walker PT Evaluation-Current Subjective Patient agrees to PT. No c/o. Objective Patient Orientation: Normal For Age ROM/Strength ROM Lower Extremities bilateral LE WFL Strength Lower Extremities 4/5 grossly bilateral LE Integumentary/Posture Integumentary refer to nursing notes Bladder Incontinence: No Posture WFL Neuromuscular (Tone, Coordination, Reflexes) grossly intact Sensory Vision: Functional Hearing: Functional Transfers Roll Left to Right (QC): 6 Sit to Lying (QC): 4 Lying to Sitting/Side of Bed(Q: 4 Sit to Stand (QC): 4 (with bed elevated slightly ) Chair/Mqr-sj-Mnvrr Xfer(QC): 5 Toilet Transfer (QC): 5 Gait Does the Patient Walk?: Yes Mode of Locomotion: Walk Anticipated Mode of Locomotion: Walk Walk 10 feet (QC): 6 Walk 50 ft with 2 Turns(QC): 6 Walk 150 ft (QC): 6 Distance: 175' Gait Assistive Device: FWW Comments/Gait Description safe and functional with no deviation Balance Sitting Static: Normal Sitting Dynamic: Normal Standing Static: Normal Standing Dynamic: Normal Assessment/Needs 80 y.o. female, will be seen short term by skilled PT to address functional mobility to ensure safe return to home at maximum LOF. Rehab Potential: Fair PT Fpc Goals Jack Setter Goals PT Fpc Goals Time Frame: January 20, 2021 Roll Left & Right (QC): 6 Sit to Lying (QC): 6 Lying-Sitting on Side/Bed(QC): 6 Sit to Stand (QC): 6 Chair/Fbp-to-Gmudg Xfer(QC): 6 Toilet Transfer (QC): 6 Does the Patient Walk: Yes Walk 10 feet (QC): 6 Walk 50ft with 2 Turns (QC): 6 Walk 150 ft (QC): 6 PT Plan Treatment/Plan Treatment Plan: Continue Plan of Care Treatment Plan: Bed Mobility, Education, Functional Activity Julia, Functional Strength, Gait, Safety, Therapeutic Exercise, Transfers Treatment Duration: January 20, 2021 Frequency: 6 times per week Estimated Hrs Per Day: .25 hour per day Patient and/or Family Agrees t: Yes Discharge Recommendations Therapy Discharge Recommendati: Home & Family Time/GCodes Time In: 928 Time Out: 937 Total Billed Treatment Time: 9 Total Billed Treatment 1 visit EVMod 9 min GERHARD JOSE PT January 12, 2021 10:44
--- NOTE | 2021-01-12 11:45 | Occupational Therapy Eval ---
OT Evaluation-General/PLF Medical Diagnosis Admission Date January 11, 2021 at 14:19 Medical Diagnosis: UTI/debility/cellulitis/edema Onset Date: January 11, 2021 Therapy Diagnosis Therapy Diagnosis: decreased ADL status Height/Weight Height (Feet): 5 Height (Inches): 3.00 Weight (Pounds): 339 Weight (Ounces): 0.0 Precautions Precautions/Isolations: Fall Prevention, Standard Precautions Referral Physician: Tyler Referral Reason: Evaluation/Treatment Medical History Pertinent Medical History: Atrial Fib, CAD, HTN Additional Medical History Bilateral TKR, cataracts, pulmonary HTN, Afib SSS with pacemaker, CHF, CAD, hypothyroidism Current History EMS secondary to weakness (was able to ambulate to EMS cot) Social History Home: Apartment Current Living Status: Alone Entry Into Home: Level Entry ADL-Prior Level of Function SCALE: Activities may be completed with or without assistive devices. 3-Ijvlpusfzg-qajmzdg completes the activity by him/herself with no assistance from a helper. 5-Set-up or Clean-up Assistance-helper sets up or cleans up; patient completes activity. [place] assists only prior to or following the activity. 4-Supervision or Touching Assistance-helper provides verbal cues and/or touching/steadying and/or contact guard assistance as patient completes activity. Assistance may be provided throughout the activity or intermittently. 3-Partial/Moderate Assistance-helper does LESS THAN HALF the effort. [place] lifts, holds or supports trunk or limbs, but provides less than half the effort. 2-Substantial/Maximal Assistance-helper does MORE THAN HALF the effort. [place] lifts or holds trunk or limbs and provides more than half the effort. 1-Xosgcyswx-nqdqph does ALL the effort. Patient does none of the effort to complete the activity. Or, the assistance of 2 or more helpers is required for the patient to complete the activity. If activity was not attempted, code reason: 7-Patient Refused. 9-Not Applicable-not attempted and the patient did not perform the activity before the current illness, exacerbation or injury. 10-Not Attempted due to Environmental Limitations-(lack of equipment, weather restraints, etc.). 88-Not Attempted due to Medical Conditions or Safety Concerns. ADL PLOF Comments Pt reports being IND at PLOF with ADLs and functional mobility using FWW. She was unable to complete footwear, and mainly goes around the house barefoot, unable to don shoes/socks. She has meals on wheels provided x4 days a week, and her children also provide some meals. Pt able to cook simple meals and use micr owave. She has a walk in shower with a SC Self Care: Needed Some Help Functional Cognition: Independent DME/Equipment: Bath Chair, Shower OT Current Status Subjective Pt seated in recliner, agreeable to OT evaluation and tx. Mental Status/Objective Patient Orientation: Person, Place, Time, Situation Current Glasses/Contacts: Yes Hearing Aids: No Dentures/Partials: No Hand Dominance: Right Upper Extremity ROM WFL, BUE shoulder flexion to approx 100 degrees Upper Extremity Coordination WFL Upper Extremity Sensation WFL Upper Extremity Strength grossly 3/5 BUEs ADL-Treatment Eating (QC): 6 (Pt reports IND with eating) On/Off Footwear (QC): 1 (Total assist donning bilateral gripper socks.) Other Treatments Pt seated in recliner, OT educated pt on purpose and benefit of OT, she verbalized understanding. Pt provided information about PLOF and home set up, and participated in UE screen. She declined needing to toilet and complete ADLs at this time. In order to increase BUE strength and activity tolerance, pt completed x10 reps of the following BUE AROM exercises: shoulder flexion, elbow flexion/extension, finger flexion/extension. OT educated pt on completing throughout day, increasing reps as tolerated, she verbalized understanding. Post tx, pt laying seated in recliner, call light in reach and all needs met. Education OT Patient Education: Correct positioning, Energy conservation, Exercise program, Modified ADL techniques, Progress toward Goal/Update tx plan, Purpose of tx/functional activities, Rehab process Teaching Recipient: Patient Teaching Methods: Discussion Response to Teaching: Verbalize Understanding OT Usp Goals Usp Goals Time Frame: January 20, 2021 Eating (QC): 6 Oral Hygiene (QC): 6 Toileting Hygiene (QC): 6 Shower/Bathe Self (QC): 6 Upper Body Dressing (QC): 6 Lower Body Dressing (QC): 6 Additional Goals: 1-Demonstrate ADL Tasks, 2-Verbalize Understanding, 3- ImproveStrength/Julia 1=Demonstrate adherence to instructed precautions during ADL tasks. 2=Patient will verbalize/demonstrate understanding of assistive devices/modifications for ADL. 3=Patient will improve strength/tolerance for activity to enable patient to perform ADL's. OT Education/Plan Problem List/Assessment Assessment: Decreased Activ Tolerance, Decreased UE Strength, Impaired I ADL's, Impaired Self-Care Skills Pt would benefit from short term skilled OT services in order to increase BUE strength and activity tolerance, and increase independence with ADLs and functional mobility to maximize LOF for safe return home. Discharge Recommendations Plan/Recommendations: Continue POC Treatment Plan/Plan of Care Patient would benefit from OT for education, treatment and training to promote independence in ADL's, mobility, safety and/or upper extremity function for ADL's. Plan of Care: ADL Retraining, Functional Mobility, UE Funct Exercise/Act Treatment Duration: January 20, 2021 Frequency: 5 times per week Estimated Hrs Per Day: .25 hour per day Rehab Potential: Fair Time/GCodes Start Time: 10:59 Stop Time: 11:10 Total Time Billed (hr/min): 11 Billed Treatment Time 1, BRIT BYRD OT January 12, 2021 11:45
[2021-01-12 12:06] VITALS: BP 127/77
[2021-01-12] MEDS: cefTRIAXone 1,000 MG/SWFI 10 ML IV PUSH IV SCH ×2 (14:34)
[2021-01-12 16:00] VITALS: BP 121/74
[2021-01-12 19:39] VITALS: BP 124/72
[2021-01-12] MEDS: lisINopril 10 MG (PRINIVIL) TABLET PO SCH (20:13)
[2021-01-12] MEDS: MICONAZOLE 2% POWDER (DESENEX AF) 90 GM TOP SCH (20:20)
[2021-01-13 00:53] VITALS: BP 104/64
[2021-01-13 04:59] VITALS: BP 119/76
[2021-01-13] MEDS: CATHETER FLUSH 10 ML SYR IV SCH ×3 (06:28→20:25)
[2021-01-13] MEDS: LEVOTHYROXINE 50 MCG (LEVOTHROID) TAB PO SCH (06:31)
[2021-01-13 08:00] VITALS: BP 134/82
[2021-01-13] MEDS: APIXABAN 5 MG (ELIQUIS) TABLET PO SCH ×2 (10:08→20:24)
[2021-01-13] MEDS: MICONAZOLE 2% POWDER (DESENEX AF) 90 GM TOP SCH ×2 (10:08→20:24)
--- NOTE | 2021-01-13 11:38 | Physical Therapy Daily Note ---
PT Daily Note-Current Subjective Patient agrees to PT. Mental Status Patient Orientation: Normal For Age Transfers SCALE: Activities may be completed with or without assistive devices. 7-Owhoviyskp-xtzopsp completes the activity by him/herself with no assistance from a helper. 5-Set-up or Clean-up Assistance-helper sets up or cleans up; patient completes activity. [place] assists only prior to or following the activity. 4-Supervision or Touching Assistance-helper provides verbal cues and/or touching/steadying and/or contact guard assistance as patient completes activity. Assistance may be provided throughout the activity or intermittently. 3-Partial/Moderate Assistance-helper does LESS THAN HALF the effort. [place] lifts, holds or supports trunk or limbs, but provides less than half the effort. 2-Substantial/Maximal Assistance-helper does MORE THAN HALF the effort. [place] lifts or holds trunk or limbs and provides more than half the effort. 1-Shaplcndb-efvdei does ALL the effort. Patient does none of the effort to complete the activity. Or, the assistance of 2 or more helpers is required for the patient to complete the activity. If activity was not attempted, code reason: 7-Patient Refused. 9-Not Applicable-not attempted and the patient did not perform the activity befo re the current illness, exacerbation or injury. 10-Not Attempted due to Environmental Limitations-(lack of equipment, weather re straints, etc.). 88-Not Attempted due to Medical Conditions or Safety Concerns. Sit to Stand (QC): 4 Toilet Transfer (QC): 4 Weight Bearing Right Lower Extremity: Right Weight Bearing/Tolerated Left Lower Extremity: Left Weight Bearing/Tolerated Gait Training Does the Patient Walk?: Yes Distance: 300' Walk 10 feet (QC): 6 Walk 50 ft with 2 Turns(QC): 6 Walk 150 ft (QC): 6 Gait Assistive Device: FWW safe and functional with no deviation Assessment Patient is currently at PLOF with gross motor skills. PT instructed patient and nursing staff to encourage ambulation independently in hallway with mask on. Patient requires assistance (PLOF) with sit to stand from low surfaces. Both nursing and patient voice understanding. PT to dismiss patient from services at this time. PT Exercise Physiology Professor Goals Correction Goals PT Correction Goals Time Frame: January 20, 2021 Roll Left & Right (QC): 6 Sit to Lying (QC): 6 Lying-Sitting on Side/Bed(QC): 6 Sit to Stand (QC): 6 Chair/Pbz-cb-Jduyv Xfer(QC): 6 Toilet Transfer (QC): 6 Does the Patient Walk: Yes Walk 10 feet (QC): 6 Walk 50ft with 2 Turns (QC): 6 Walk 150 ft (QC): 6 PT Plan Treatment/Plan Treatment Plan: Discontinue PT Treatment Plan: Bed Mobility, Education, Functional Activity Julia, Functional Strength, Gait, Safety, Therapeutic Exercise, Transfers Treatment Duration: January 20, 2021 Frequency: 6 times per week Estimated Hrs Per Day: .25 hour per day Patient and/or Family Agrees t: Yes Time/GCodes Time In: 1040 Time Out: 1054 Total Billed Treatment Time: 14 Total Billed Treatment 1 visit FA 14 min GERHARD JOSE PT January 13, 2021 11:38
[2021-01-13 12:00] VITALS: BP 104/71
--- NOTE | 2021-01-13 12:01 | Progress Note - Hospitalist ---
Subjective HPI/CC On Admission Date Seen by Provider: January 13, 2021 Time Seen by Provider: 11:57 Pt is a 80yoCF with a PMH of HTN, HLD, chronic a-fib, hypothyroidism who presented to the ER due to generalized weakness. Her daughter is at bedside and states that she has been more debilitated over the past 6 months and patient agrees that she is often tired but starting on Saturday she couldn't even get out of bed. She laid in bed for over 12 hours because she couldn't reach her panic button or phone. They brought her to the ER yesterday when she was still quite weak and was found to have urinary tract infection and possible cellulitis of her leg. She reports feeling better today but not quite back to normal. Subjective/Events-last exam pt reports doing well. No complaints. Actually asking to go home. Advised waiting until PT has seen her so we can figure out a safe DC plan. I discussed with her daughter as well about DC planning. Objective Exam Vital Signs Vital Signs Date Time Temp Pulse Resp B/P (MAP) Pulse Ox O2 Delivery O2 Flow Rate FiO2 01/13/21 08:00 36.2 61 20 134/82 (99) 98 Room Air Capillary Refill : Less Than 3 Seconds General Appearance: No Apparent Distress, Chronically ill, Obese Respiratory: Lungs Clear, No Respiratory Distress Cardiovascular: Regular Rate, Rhythm, No Murmur Neurologic/Psychiatric: Alert, Oriented x3 Results/Procedures Lab Patient resulted labs reviewed. Imaging: Reviewed Imaging Report Assessment/Plan Assessment and Plan Assess & Plan/Chief Complaint UTI Generalized Weakness Continue IV abx PT/OT Declined IRF Await sensitivities, ecoli growing on culture so far Not sepsis Will need home health Hypothyroidism TSH 3.3 HTN HLD pAF Continue home meds when med rec done DVT ppx: Already on anticoagulation Diagnosis/Problems Diagnosis/Problems (1) Essential (primary) hypertension (2) HLD (hyperlipidemia) (3) Hypothyroidism (4) Atrial fibrillation (5) Urinary tract infection Status: Acute Qualifiers: Urinary tract infection type: site unspecified Hematuria presence: without hematuria Qualified Codes: N39.0 - Urinary tract infection, site not specified (6) Edema Status: Acute Qualifiers: Edema type: unspecified Qualified Codes: R60.9 - Edema, unspecified (7) Debility Status: Acute JOSÉ ANDERSON MD January 13, 2021 12:01
--- NOTE | 2021-01-13 12:04 | D/C HH Face to Face Order ---
D/C Face to Face Orders Instructions for Patient [facility], Patient Instructions/FollowUp: Please continue to take your medications as written. Please follow upw ith Dr Lobato to follow up this hospital stay. Physician to follow Patient: Dr Lobato Discharge Diet for Home: Regular Diet Patient Data-Allergies,Ht & Wt Patient Allergies: Coded Allergies: adhesive tape (Verified Allergy, Severe, RASH/ ITCHING, 11/21/18) gemfibrozil (Verified Allergy, Severe, SEPSIS, 12/21/19) codeine (Verified Allergy, Mild, N/V, 12/21/19) hydrocodone (Verified Adverse Reaction, Mild, NAUSEA, 12/21/19) Height (Feet): 5 Height (Inches): 3.00 Weight (Pounds): 339 Weight (Ounces): 0.0 Home Health Need/Face to Face Date of Face to Face: January 13, 2021 Clinical Findings: Generalized weakness and fatigue I have seen Pt [id number]-aa-pwst: Yes Discharged To: Home Diagnosis/Conditions: UTI, Generalized weakness Patient is Homebound due to: Beltran fall risk due to instabilty, Muscle weakness Homebound Status Due to the above stated illness, injury or surgical procedure (medical condition or diagnosis) and associated clinical findings, the patient is homebound because of his/her inability to leave home except with aid of a supportive device and/or person AND leaving the home requires a considerable and taxing effort or is medically contraindicated. Pt req the following assistanc: Aid of another person, Walker Home Health Nursing Orders Home Health Services Order: Nursing Services, Fiber Technologist-Evaluate & Treat, Physical Therapy-Evaluate & Treat Home Health Infusion Therapy Line Start Date: January 11, 2021 Therapy Orders Therapy Orders: OT (must have SN or PT order), Physical Therapy Therapy Specific Orders: Eval assistive deivces, Teach enviro modifications/safety, Gait training, Increase strength/endurance Certify Stmt I certify that this patient is under my care and that I, a nurse practitioner or a physician; a assistant at surgery working with me, had a face to face encounter that - meets the physician face to face encounter requirements with this patient as dated. JOSÉ ANDERSON MD January 13, 2021 12:04
--- NOTE | 2021-01-13 14:38 | Occupational Ther Daily Note ---
OT Current Status-Daily Note Subjective Pt seated in recliner, agreeable to OT Tx. Mental Status/Objective Patient Orientation: Normal For Age ADL-Treatment Therapy Code Descriptions/Definitions Functional [place] Measure: 0=Not Assessed/NA 4=Minimal Assistance 1=Total Assistance 5=Supervision or Setup 2=Maximal Assistance 6=Modified [place] 3=Moderate Assistance 7=Complete IndependenceSCALE: Activities may be completed with or without assistive devices. 9-Dxkezpvwdg-mhdlulz completes the activity by him/herself with no assistance from a helper. 5-Set-up or Clean-up Assistance-helper sets up or cleans up; patient completes activity. Gifford assists only prior to or following the activity. 4-Supervision or Touching Assistance-helper provides verbal cues and/or touching/steadying and/or contact guard assistance as patient completes activity. Assistance may be provided throughout the activity or intermittently. 3-Partial/Moderate Assistance-helper does LESS THAN HALF the effort. Gifford lifts, holds or supports trunk or limbs, but provides less than half the effort. 2-Substantial/Maximal Assistance-helper does MORE THAN HALF the effort. Gifford lifts or holds trunk or limbs and provides more than half the effort. 7-Lhawxrswx-fdlhzr does ALL the effort. Patient does none of the effort to complete the activity. Or, the assistance of 2 or more helpers is required for the patient to complete the activity. If activity was not attempted, code reason: 7-Patient Refused. 9-Not Applicable-not attempted and the patient did not perform the activity before the current illness, exacerbation or injury. 10-Not Attempted due to Environmental Limitations-(lack of equipment, weather restraints, etc.). 88-Not Attempted due to Medical Conditions or Safety Concerns. Eating (QC): 6 Toileting Hygiene (QC): 3 (Assist for thoroughness) Other Treatment Pt seated in recliner. OT educated pt on BUE exercises using light resistance theraband in order to increase BUE Strength and activity tolerance. Pt completed x10 reps AROM shoulder flexion, then x10 of the following using moderate resistance theraband: elbow flexion, elbow extension, external rotation, and horizontal abduction. Pt states need to use bathroom, assisted up from chair and into bathroom. Assist with hygiene post toileting for thoroughness, then back to chair. Post tx, pt seated in recliner, call light in reach and all needs met. Education OT Patient Education: Correct positioning, Energy conservation, Exercise program, Modified ADL techniques, Progress toward Goal/Update tx plan, Purpose of tx/functional activities Teaching Recipient: Patient Teaching Methods: Discussion Response to Teaching: Verbalize Understanding OT Half-Way Goals Half-Way Goals Time Frame: January 20, 2021 Eating (QC): 6 Oral Hygiene (QC): 6 Toileting Hygiene (QC): 6 Shower/Bathe Self (QC): 6 Upper Body Dressing (QC): 6 Lower Body Dressing (QC): 6 Additional Goals: 1-Demonstrate ADL Tasks, 2-Verbalize Understanding, 3- ImproveStrength/Julia 1=Demonstrate adherence to instructed precautions during ADL tasks. 2=Patient will verbalize/demonstrate understanding of assistive devices/modif ications for ADL. 3=Patient will improve strength/tolerance for activity to enable patient to perform ADL's. OT Education/Plan Problem List/Assessment Assessment: Decreased Activ Tolerance, Decreased UE Strength, Impaired I ADL's, Impaired Self-Care Skills Pt would benefit from short term skilled OT services in order to increase BUE strength and activity tolerance, and increase independence with ADLs and functional mobility to maximize LOF for safe return home. Discharge Recommendations Plan/Recommendations: Continue POC Treatment Plan/Plan of Care Patient would benefit from OT for education, treatment and training to promote independence in ADL's, mobility, safety and/or upper extremity function for ADL's. Plan of Care: ADL Retraining, Functional Mobility, UE Funct Exercise/Act Treatment Duration: January 20, 2021 Frequency: 5 times per week Estimated Hrs Per Day: .25 hour per day Rehab Potential: Fair Time/GCodes Start Time: 13:27 Stop Time: 13:42 Total Time Billed (hr/min): 15 Billed Treatment Time 1, EX BRIT KAMARA OT January 13, 2021 14:38
[2021-01-13 15:48] VITALS: BP 115/66
[2021-01-13] MEDS: cefTRIAXone 1,000 MG/SWFI 10 ML IV PUSH IV SCH ×2 (15:54)
[2021-01-13] MEDS: lisINopril 10 MG (PRINIVIL) TABLET PO SCH (20:24)
[2021-01-13 23:28] VITALS: BP 115/75
[2021-01-14] MEDS: LEVOTHYROXINE 50 MCG (LEVOTHROID) TAB PO SCH (05:51)
[2021-01-14] MEDS: KCL 10 MEQ TAB (MICRO K) PO SCH (05:51)
[2021-01-14] MEDS: CATHETER FLUSH 10 ML SYR IV SCH (05:52)
[2021-01-14 08:16] VITALS: BP 115/80
[2021-01-14] MEDS: MICONAZOLE 2% POWDER (DESENEX AF) 90 GM TOP SCH (10:01)
[2021-01-14] MEDS: APIXABAN 5 MG (ELIQUIS) TABLET PO SCH (10:01)
--- NOTE | 2021-01-14 11:23 | Discharge Summary ---
Diagnosis/Chief Complaint Date of Admission January 11, 2021 at 14:19 Date of Discharge Discharge Date: January 14, 2021 Admission Diagnosis UTI Primary Care Cesario Lobato DO Discharge Diagnosis (1) Essential (primary) hypertension (2) HLD (hyperlipidemia) (3) Hypothyroidism (4) Atrial fibrillation (5) Urinary tract infection Status: Acute (6) Edema Status: Acute (7) Debility Status: Acute Discharge Summary Discharge Physical Exam Allergies: Coded Allergies: adhesive tape (Verified Allergy, Severe, RASH/ ITCHING, 11/21/18) gemfibrozil (Verified Allergy, Severe, SEPSIS, 12/21/19) codeine (Verified Allergy, Mild, N/V, 12/21/19) hydrocodone (Verified Adverse Reaction, Mild, NAUSEA, 12/21/19) Vitals & I&Os Vital Signs Date Time Temp Pulse Resp B/P (MAP) Pulse Ox O2 Delivery O2 Flow Rate FiO2 01/14/21 08:16 36.0 62 16 115/80 (92) 98 Room Air General Appearance: No Apparent Distress, Chronically ill, Obese Respiratory: Lungs Clear, No Respiratory Distress Cardiovascular: Regular Rate, Rhythm, No Murmur Neurologic/Psychiatric: Alert, Oriented x3 Hospital Course Pt was admitted to the hospital due to generalized weakness and UTI. She was treated with IV abx and completed her course while here. She was seen by PT/OT and did well with improvements every day. Due to weakness IRU was considered but she was declined from there due to her improvement back to her baseline. She was discharged home in stable and improved condition to follow up this hospital stay with her PCP, Dr Lobato. Home health was arranged. Other options to arrange for out of hospital care were discussed with patient and her daughter (private in home caregivers and half-way placement) but these options were not financially an option per patient and family. Labs (last 24 hrs) Microbiology 01/11/21 Urine Culture - Preliminary, Resulted Escherichia coli Mixed Bacterial Kim Patient resulted labs reviewed. Imaging: Reviewed Imaging Report Discussion & Recommendations Discharge Planning: >30 minutes discharge planning Discharge Home Medications: Active Scripts Active Reported [Apply Cider Gummy] 1 Ea PO TID Ocuvite Blue Light 25-5 mg Sfg (Lutein/Zeaxanthin) 1 Each Capsule 1 Each PO DAILY K-Tab ER (Potassium Chloride) 10 Meq Tablet.er 10 Meq PO Q48H Metoprolol Succinate 25 Mg Tab.er.24h 25 Mg PO HS Lisinopril 10 Mg Tablet 10 Mg PO HS Eliquis (Apixaban) 5 Mg Tablet 5 Mg PO BID Atorvastatin Calcium 20 Mg Tablet 20 Mg PO HS Fish Oil 1,000 mg Capsule ([place] 3 Polyunsat Fatty Acids) 1,000 Mg Cap 1,000 Mg PO DAILY Levothyroxine Sodium 50 Mcg Tablet 50 Mcg PO DAILY Instructions to patient/family Please see electronic discharge instructions given to patient. Problem Qualifiers (1) Urinary tract infection: Urinary tract infection type: site unspecified Hematuria presence: without hematuria Qualified Codes: N39.0 - Urinary tract infection, site not specified (2) Edema: Edema type: unspecified Qualified Codes: R60.9 - Edema, unspecified JOSÉ ANDERSON MD January 14, 2021 11:23
== END 2021-01-14 11:19 | disposition home health service (06) ==
LOC: EDUNIT# 11:51 → ER 11:52 → UNDOADMOB 14:19 → 4TH 14:19 → UNDODISOB 01-14 11:50
PROVIDERS: ADMIT Family Medicine; ATTEND Family Medicine
DX: I10 Essential (primary) hypertension (principal); E78.5 Hyperlipidemia, unspecified; E03.9 Hypothyroidism, unspecified; I48.0 Paroxysmal atrial fibrillation; N39.0 Urinary tract infection, site not specified; L03.115 Cellulitis of right lower limb; I25.10 Atherosclerotic heart disease of native coronary artery without angina pectoris; M19.90 Unspecified osteoarthritis, unspecified site; R60.9 Edema, unspecified; R53.81 Other malaise; F32.9 Major depressive disorder, single episode, unspecified; F41.9 Anxiety disorder, unspecified; Z95.0 Presence of cardiac pacemaker; Z79.890 Hormone replacement therapy; Z79.899 Other long term (current) drug therapy
CPT/HCPCS: 36410; 71045; 76937; 80053; 81000; 83735; 83880; 84439; 84443 ×2; 85025; 87077; 87088; 87186; 94640; 96374; 97110; 97162; 97166; 97530; 99284; C1751; G0378; 36415

== ENCOUNTER → 2021-02-03 | Outpatient (CLI) | payer MEDICARE ==
[~2021-02-03] MED LIST changes: +LUTE1CAP7 PO; +MTP25TSR PO; +POTA10TA PO; +[UNRECOGNIZED DRUG - OTHER] PO
== END ==
LOC: LABNPT 17:34
PROVIDERS: ATTEND Family Medicine
DX: N39.0 Urinary tract infection, site not specified (principal)
CPT/HCPCS: 87077; 87088; 87186

== ENCOUNTER 2021-03-10 13:40 | Emergency (ER) | payer MEDICARE ==
[~2021-03-10] VITALS: Ht 152.4 cm; Wt 181.4 kg
--- NOTE | 2021-03-10 13:49 | ED General ---
General Chief Complaint: General Problems/Pain Stated Complaint: FELL Source of Information: Patient Exam Limitations: No Limitations History of Present Illness Date Seen by Provider: Mar 10, 2021 Time Seen by Provider: 13:47 Initial Comments To ER with reports of fall out of wheelchair while getting into the wheelchair van after her follow-up appointment with Dr. Mason's office. They wanted her to be evaluated in the emergency room. She has no complaints did not hit her head and denies any pain. Timing/Duration: 1/2 Hour Severity: Moderate Associated Systoms: Denies Symptoms Allergies and Home Medications Allergies Coded Allergies: adhesive tape (Verified Allergy, Severe, RASH/ ITCHING, 11/21/18) gemfibrozil (Verified Allergy, Severe, SEPSIS, 12/21/19) codeine (Verified Allergy, Mild, N/V, 12/21/19) hydrocodone (Verified Adverse Reaction, Mild, NAUSEA, 12/21/19) Home Medications Apixaban 5 Mg Tablet, 5 MG PO BID, (Reported) Atorvastatin Calcium 20 Mg Tablet, 20 MG PO HS, (Reported) Cefuroxime Axetil 250 Mg Tablet, 250 MG PO BID Prescribed by: AGUSTIN SHIELDS on 03/10/21 1509 Levothyroxine Sodium 50 Mcg Tablet, 50 MCG PO DAILY, (Reported) Lisinopril 10 Mg Tablet, 10 MG PO HS, (Reported) Lutein/Zeaxanthin 1 Each Capsule, 1 EACH PO DAILY, (Reported) Metoprolol Succinate 25 Mg Tab.er.24h, 25 MG PO HS, (Reported) [place] 3 Polyunsat Fatty Acids 1,000 Mg Cap, 1,000 MG PO DAILY, (Reported) Potassium Chloride 10 Meq Tablet.er, 10 MEQ PO Q48H, (Reported) [Apply Cider Gummy] , 1 EA PO TID, (Reported) Patient Home Medication List Home Medication List Reviewed: Yes Review of Systems Review of Systems Constitutional: see HPI, other (Denies pain alert and oriented very pleasant) EENTM: see HPI Respiratory: no symptoms reported Cardiovascular: no symptoms reported Genitourinary: no symptoms reported Musculoskeletal: no symptoms reported Skin: no symptoms reported Psychiatric/Neurological: No Symptoms Reported Hematologic/Lymphatic: No Symptoms Reported Immunological/Allergic: no symptoms reported Past Elztnhn-Eypcxe-Ayqwct Hx Seasonal Allergies Seasonal Allergies: Yes Past Medical History Surgeries: Yes (BILAT TKR, CATARACTS, D&C) Gallbladder, Joint Replacement, Pacemaker Respiratory: Yes (PULMONARY HYPERTENSION) Currently Using CPAP: No Currently Using BIPAP: No Cardiac: Yes (AFIB SSS with pacemaker, chf) Atrial Fibrillation, Coronary Artery Disease, Hypertension Neurological: No Reproductive Disorders: No Sexually Transmitted Disease: No HIV/AIDS: No Genitourinary: No Gastrointestinal: No Musculoskeletal: Yes Arthritis Endocrine: Yes Hypothyroidsim HEENT: Yes (GLASSES) Cataract Loss of Vision: Denies Hearing Impairment: Denies Cancer: No Did You Recieve Any Treatments: No Psychosocial: Yes (MILD) Anxiety, Depression Integumentary: No Blood Disorders: No Adverse Reaction/Blood Tranf: No (HAS HAD BLOOD WITH NO REACTION) Family Medical History No Pertinent Family Hx non-contributory Physical Exam Vital Signs Vital Signs - First Documented 03/10/21 13:46 Temp 36.4 Pulse 64 Resp 17 B/P (MAP) 121/66 (84) O2 Delivery Room Air Capillary Refill : Height, Weight, BMI Height: 5'3.00" Weight: 339lbs. 0.0oz. [id number]; 69.86 BMI Method: General Appearance: No Apparent Distress, WD/WN Eyes: Bilateral Eye Normal Inspection, Bilateral Eye PERRL, Bilateral Eye EOMI Neck: Full Range of Motion, Normal Inspection Respiratory: No Accessory Muscle Use, No Respiratory Distress Cardiovascular: Regular Rate, Rhythm, Normal Peripheral Pulses Gastrointestinal: Normal Bowel Sounds, Non Tender, Soft Extremity: Normal Capillary Refill, Normal Inspection, Other (She has pitting edema with venous stasis dermatitis bilateral lower extremities with some weeping left lower extremity.) Neurologic/Psychiatric: Alert, Oriented x3 Skin: Normal Color, Warm/Dry Progress/Results/Core Measures Suspected Sepsis SIRS Temperature: Pulse: Respiratory Rate: Laboratory Tests 03/10/21 14:20: White Blood Count 6.5 Blood Pressure / Mean: Laboratory Tests 03/10/21 14:20: Creatinine 0.88, Platelet Count 195, Total Bilirubin 0.8 Results/Orders Lab Results Laboratory Tests Test 03/10/21 14:20 03/10/21 14:30 Range/Units White Blood Count 6.5 4.3-11.0 10^3/uL Red Blood Count 4.45 3.80-5.11 10^6/uL Hemoglobin 13.9 11.5-16.0 g/dL Hematocrit 43 35-52 % Mean Corpuscular Volume 96 80-99 fL Mean Corpuscular Hemoglobin 31 25-34 pg Mean Corpuscular Hemoglobin Concent 33 32-36 g/dL Red Cell Distribution Width 12.8 10.0-14.5 % Platelet Count 195 130-400 10^3/uL Mean Platelet Volume 10.8 9.0-12.2 fL Immature Granulocyte % (Auto) 1 % Neutrophils (%) (Auto) 77 H 42-75 % Lymphocytes (%) (Auto) 11 L 12-44 % Monocytes (%) (Auto) 8 0-12 % Eosinophils (%) (Auto) 3 0-10 % Basophils (%) (Auto) 1 0-10 % Neutrophils # (Auto) 5.0 1.8-7.8 10^3/uL Lymphocytes # (Auto) 0.7 L 1.0-4.0 10^3/uL Monocytes # (Auto) 0.5 0.0-1.0 10^3/uL Eosinophils # (Auto) 0.2 0.0-0.3 10^3/uL Basophils # (Auto) 0.0 0.0-0.1 10^3/uL Immature Granulocyte # (Auto) 0.1 0.0-0.1 10^3/uL Sodium Level 138 135-145 MMOL/L Potassium Level 4.3 3.6-5.0 MMOL/L Chloride Level 105 98-107 MMOL/L Carbon Dioxide Level 22 21-32 MMOL/L Anion Gap 11 5-14 MMOL/L Blood Urea Nitrogen 21 H 7-18 MG/DL Creatinine 0.88 0.60-1.30 MG/DL Estimat Glomerular Filtration Rate > 60 BUN/Creatinine Ratio 24 Glucose Level 111 H 70-105 MG/DL Calcium Level 9.9 8.5-10.1 MG/DL Corrected Calcium 10.1 8.5-10.1 MG/DL Magnesium Level 2.2 1.6-2.4 MG/DL Total Bilirubin 0.8 0.1-1.0 MG/DL Aspartate Amino Transf (AST/SGOT) 26 5-34 U/L Alanine Aminotransferase (ALT/SGPT) 32 0-55 U/L Alkaline Phosphatase 89 40-136 U/L B-Type Natriuretic Peptide 76.3 <100.0 PG/ML Total Protein 7.3 6.4-8.2 GM/DL Albumin 3.8 3.2-4.5 GM/DL Urine Color YELLOW Urine Clarity CLEAR Urine pH 5.5 5-9 Urine Specific [place] >=1.030 1.016-1.022 Urine Protein NEGATIVE NEGATIVE Urine Glucose (UA) NEGATIVE NEGATIVE Urine Ketones NEGATIVE NEGATIVE Urine Nitrite POSITIVE H NEGATIVE Urine Bilirubin NEGATIVE NEGATIVE Urine Urobilinogen 0.2 < = 1.0 MG/DL Urine Leukocyte Esterase NEGATIVE NEGATIVE Urine RBC (Auto) NEGATIVE NEGATIVE Urine RBC NONE /HPF Urine WBC 5-10 H /HPF Urine Squamous Epithelial Cells 0-2 /HPF Urine Crystals NONE /LPF Urine Bacteria MODERATE H /HPF Urine Casts NONE /LPF Urine Mucus NEGATIVE /LPF Urine Culture Indicated YES My Orders Orders - AGUSTIN SHIELDS BOTTLE TESTER Cbc With Automated Diff (03/10/21 14:04) Comprehensive Metabolic Panel (03/10/21 14:04) BNP (03/10/21 14:04) Magnesium (03/10/21 14:04) Ua Culture If Indicated (03/10/21 14:04) Straight Cath (Urinary) (03/10/21 14:04) Urine Culture (03/10/21 14:30) Cephalexin Capsule (Keflex Capsule) (03/10/21 15:15) Vital Signs/I&O 03/10/21 13:46 Temp 36.4 Pulse 64 Resp 17 B/P (MAP) 121/66 (84) O2 Delivery Room Air Capillary Refill : Departure Communication (Admissions) Family Conversation I have written an order for Unna boots to be applied at home to be changed weekly. I will fax this to [facility] with whom she is already established. 1419-patient's daughter has arrived to report that patient may have a UTI as she is generally weak and has been forgetful lately. They are also concerned about the redness of bilateral lower extremities. Impression Primary Impression: Fall Qualified Codes: W19.XXXA - Unspecified fall, initial encounter Additional Impressions: Venous stasis dermatitis Qualified Codes: I87.2 - Venous insufficiency (chronic) (peripheral) Urinary tract infection Qualified Codes: N30.00 - Acute cystitis without hematuria Disposition: 01 HOME, SELF-CARE Condition: Stable Departure-Patient Inst. Decision time for Depature: 13:49 Referrals: LEENA MASON MD (PCP/Family) Primary Care Physician Patient Instructions: Preventing Falls ED Add. Discharge Instructions: Keep the wraps on your legs. Ask any about getting referral to wound care or if she herself can apply Unna boots in the clinic. These will help to compress the lower extremities and help with the edema. However the redness and skin discoloration is not something that will go away. It may get better but it will never completely go away. The urinary tract infection is very mild, short course of antibiotics should be sufficient. Labs otherwise unremarkable. All discharge instructions reviewed with patient and/or family. Voiced understanding. Scripts Cefuroxime Axetil (Cefuroxime) 250 Mg Tablet 250 MG PO BID, #10 TAB Prov: AGUSTIN SHIELDS APRN 03/10/21 AGUSTIN SHIELDS APRN Mar 10, 2021 13:49
[2021-03-10 14:31] LABS: BASOPHILS % (AUTO) 1 % (0-10); EOSINOPHILS # (AUTO) 0.2 10^3/uL (0.0-0.3); EOSINOPHILS % (AUTO) 3 % (0-10); HEMATOCRIT 43 % (35-52); HEMOGLOBIN 13.9 g/dL (11.5-16.0); LYMPHOCYTES # (AUTO) 0.7 10^3/uL (1.0-4.0); LYMPHOCYTES % (AUTO) 11 % (12-44); MEAN CORPUSCULAR HEMOGLOBIN 31 pg (25-34); MEAN CORPUSCULAR HGB CONC 33 g/dL (32-36); MEAN CORPUSCULAR VOLUME 96 fL (80-99); MEAN PLATELET VOLUME 10.8 fL (9.0-12.2); MONOCYTES # (AUTO) 0.5 10^3/uL (0.0-1.0); MONOCYTES % (AUTO) 8 % (0-12); NEUTROPHILS % (AUTO) 77 % (42-75); PLATELET COUNT 195 10^3/uL (130-400); WHITE BLOOD COUNT 6.5 10^3/uL (4.3-11.0)
[2021-03-10 14:38] LABS: BILIRUBIN,URINE NEGATIVE (NEGATIVE); CLARITY,URINE CLEAR; COLOR,URINE YELLOW; GLUCOSE, URINE (UA) NEGATIVE (NEGATIVE); KETONES,URINE NEGATIVE (NEGATIVE); LEUKOCYTE ESTERASE ,URINE NEGATIVE (NEGATIVE); NITRITE,URINE POSITIVE (NEGATIVE); PH,URINE 5.5 (5-9); PROTEIN,URINE NEGATIVE (NEGATIVE)
[2021-03-10 14:47] LABS: BACTERIA,URINE MODERATE /HPF; SQUAMOUS EPITHELIAL CELL,UR 0-2 /HPF
[2021-03-10 14:56] LABS: ALBUMIN 3.8 GM/DL (3.2-4.5); CHLORIDE 105 MMOL/L (98-107); POTASSIUM 4.3 MMOL/L (3.6-5.0); SODIUM 138 MMOL/L (135-145)
[2021-03-10 14:58] LABS: CALCIUM 9.9 MG/DL (8.5-10.1)
[2021-03-10 14:59] LABS: GLUCOSE 111 MG/DL (70-105); TOTAL PROTEIN 7.3 GM/DL (6.4-8.2)
[2021-03-10 15:00] LABS: CARBON DIOXIDE 22 MMOL/L (21-32)
[2021-03-10 15:01] LABS: BILIRUBIN,TOTAL 0.8 MG/DL (0.1-1.0)
[2021-03-10 15:02] LABS: ALKALINE PHOSPHATASE 89 U/L (40-136); CREATININE SERUM 0.88 MG/DL (0.60-1.30); GFR ESTIMATED > 60
[2021-03-10 15:03] LABS: BUN/CREATININE RATIO 24
[2021-03-10 15:05] LABS: ALANINE AMINOTRANSFERASE 32 U/L (0-55)
[2021-03-10 15:06] LABS: MAGNESIUM 2.2 MG/DL (1.6-2.4)
[2021-03-10] MEDS ORDERED: CEFU250T80 PO (15:09)
[2021-03-10] MEDS ORDERED: CEPHALEXIN 250 MG (KEFLEX) CAP PO SCH (15:15)
[2021-03-10 17:15] VITALS: BP 137/70
== END 2021-03-10 17:15 | disposition home or self-care (01) ==
LOC: EDUNIT# 13:40 → ER 13:42
DX: I87.2 Venous insufficiency (chronic) (peripheral) (principal); N39.0 Urinary tract infection, site not specified; I11.0 Hypertensive heart disease with heart failure; I50.9 Heart failure, unspecified; I48.91 Unspecified atrial fibrillation; I25.10 Atherosclerotic heart disease of native coronary artery without angina pectoris; E03.9 Hypothyroidism, unspecified; Z79.01 Long term (current) use of anticoagulants; Z79.899 Other long term (current) drug therapy; Z79.890 Hormone replacement therapy
CPT/HCPCS: 36415; 51701; 80053; 81000; 83735; 83880; 85025; 87077; 87088; 87186

== ENCOUNTER 2021-03-17 14:12 | Inpatient (IN) | payer MEDICARE ==
[~2021-03-17] VITALS: Ht 157.5 cm; Wt 168.4 kg
[~2021-03-17 14:12] MED LIST changes: +CEFU250T80 PO
[2021-03-17] MEDS ORDERED: VANCOMYCIN INJECTION 2,000 MG in NS IV 500 ML 500 ML IV ONE (16:52)
--- NOTE | 2021-03-17 16:56 | ED Lower Extremity ---
General Chief Complaint: Lower Extremity Stated Complaint: CELLULITIS IN LEGS Nursing Triage Note: THE PT ARRIVAL BY EMS. NO DISTRESS IS SEEN ON ARRIVAL. LOC IS NORMAL FOR THE PT. THE PT C/O OF CELLULITIS TO HER RIGHT LOWER LEG. Source: patient Exam Limitations: no limitations History of Present Illness Date Seen by Provider: Mar 17, 2021 Time Seen by Provider: 14:10 Initial Comments Patient to the ER by EMS from home with chief complaint she recently was being treated for cellulitis and inpatient and released about a week ago. Her in-home sitter saw her today saw neon green ooze coming out of her legs and the patient was very weak since about to pass out the shower so she was sent to the ER for reevaluation. She has not had any fevers or chills. She is having some chronic pain in her hip as well as her legs with movement. She is not on antibiotics presently. She is on blood thinners for history of A. fib. No chest pain s hortness of air nausea vomiting or diarrhea. Allergies and Home Medications Allergies Coded Allergies: adhesive tape (Verified Allergy, Severe, RASH/ ITCHING, 11/21/18) gemfibrozil (Verified Allergy, Severe, SEPSIS, 12/21/19) codeine (Verified Allergy, Mild, N/V, 12/21/19) hydrocodone (Verified Adverse Reaction, Mild, NAUSEA, 12/21/19) Home Medications Apixaban 5 Mg Tablet, 5 MG PO BID, (Reported) Atorvastatin Calcium 20 Mg Tablet, 20 MG PO HS, (Reported) Cefuroxime Axetil 250 Mg Tablet, 250 MG PO BID Prescribed by: AGUSTIN SHIELDS on 03/10/21 1509 Levothyroxine Sodium 50 Mcg Tablet, 50 MCG PO DAILY, (Reported) Lisinopril 10 Mg Tablet, 10 MG PO HS, (Reported) Lutein/Zeaxanthin 1 Each Capsule, 1 EACH PO DAILY, (Reported) Metoprolol Succinate 25 Mg Tab.er.24h, 25 MG PO HS, (Reported) [place] 3 Polyunsat Fatty Acids 1,000 Mg Cap, 1,000 MG PO DAILY, (Reported) Potassium Chloride 10 Meq Tablet.er, 10 MEQ PO Q48H, (Reported) [Apply Cider Gummy] , 1 EA PO TID, (Reported) Patient Home Medication List Home Medication List Reviewed: Yes Review of Systems Constitutional: chills, diaphoresis EENTM: ear discharge, ear pain Respiratory: cough, short of breath Cardiovascular: chest pain, palpitations Gastrointestinal: abdominal pain, nausea, vomiting Genitourinary: discharge, dysuria Musculoskeletal: back pain, joint pain All Other Systems Reviewed Negative Unless Noted: Yes Past Luqofip-Jjxnap-Unbwza Hx Patient Social History Tobacco Use?: No Use of E-Cig and/or Vaping dev: No Substance use?: No Seasonal Allergies Seasonal Allergies: Yes Past Medical History Surgeries: Yes (BILAT TKR, CATARACTS, D&C) Gallbladder, Joint Replacement, Pacemaker Respiratory: Yes (PULMONARY HYPERTENSION) Currently Using CPAP: No Currently Using BIPAP: No Cardiac: Yes (AFIB SSS with pacemaker, chf) Atrial Fibrillation, Coronary Artery Disease, Hypertension Neurological: No Reproductive Disorders: No Sexually Transmitted Disease: No HIV/AIDS: No Genitourinary: No Gastrointestinal: No Musculoskeletal: Yes Arthritis Endocrine: Yes Hypothyroidsim HEENT: Yes (GLASSES) Cataract Loss of Vision: Denies Hearing Impairment: Denies Cancer: No Did You Recieve Any Treatments: No Psychosocial: Yes (MILD) Anxiety, Depression Integumentary: No Blood Disorders: No Adverse Reaction/Blood Tranf: No (HAS HAD BLOOD WITH NO REACTION) Family Medical History No Pertinent Family Hx non-contributory Physical Exam Vital Signs Vital Signs - First Documented 03/17/21 15:02 Temp 36.6 Pulse 88 Resp 18 B/P (MAP) 140/100 (113) Capillary Refill : Less Than 3 Seconds Height, Weight, BMI Height: 5'3.00" Weight: 339lbs. 0.0oz. 153.715948yn; 43.00 BMI Method: General Appearance: WD/WN, no apparent distress HEENT: PERRL/EOMI, pharynx normal Neck: non-tender, normal inspection Cardiovascular: normal peripheral pulses, regular rate, rhythm Respiratory: lungs clear, normal breath sounds, no respiratory distress, no accessory muscle use Gastrointestinal: non tender, soft Legs: bilateral leg swelling (Bilateral weeping edema with erythema, calor, rubor, and calor) Progress/Results/Core Measures Results/Orders Lab Results Laboratory Tests Test 03/17/21 14:50 Range/Units White Blood Count 19.3 H 4.3-11.0 10^3/uL Red Blood Count 4.49 3.80-5.11 10^6/uL Hemoglobin 14.0 11.5-16.0 g/dL Hematocrit 44 35-52 % Mean Corpuscular Volume 97 80-99 fL Mean Corpuscular Hemoglobin 31 25-34 pg Mean Corpuscular Hemoglobin Concent 32 32-36 g/dL Red Cell Distribution Width 13.1 10.0-14.5 % Platelet Count 222 130-400 10^3/uL Mean Platelet Volume 12.4 H 9.0-12.2 fL Immature Granulocyte % (Auto) 1 % Neutrophils (%) (Auto) 91 H 42-75 % Lymphocytes (%) (Auto) 2 L 12-44 % Monocytes (%) (Auto) 6 0-12 % Eosinophils (%) (Auto) 0 0-10 % Basophils (%) (Auto) 0 0-10 % Neutrophils # (Auto) 17.7 H 1.8-7.8 10^3/uL Lymphocytes # (Auto) 0.3 L 1.0-4.0 10^3/uL Monocytes # (Auto) 1.2 H 0.0-1.0 10^3/uL Eosinophils # (Auto) 0.0 0.0-0.3 10^3/uL Basophils # (Auto) 0.0 0.0-0.1 10^3/uL Immature Granulocyte # (Auto) 0.1 0.0-0.1 10^3/uL Neutrophils % (Manual) 94 % Lymphocytes % (Manual) 1 % Monocytes % (Manual) 3 % Eosinophils % (Manual) 0 % Basophils % (Manual) 0 % Band Neutrophils 2 % Toxic Granulation 1+ Sodium Level 140 135-145 MMOL/L Potassium Level 4.3 3.6-5.0 MMOL/L Chloride Level 106 98-107 MMOL/L Carbon Dioxide Level 23 21-32 MMOL/L Anion Gap 11 5-14 MMOL/L Blood Urea Nitrogen 26 H 7-18 MG/DL Creatinine 0.81 0.60-1.30 MG/DL Estimat Glomerular Filtration Rate 68 BUN/Creatinine Ratio 32 Glucose Level 145 H 70-105 MG/DL Calcium Level 9.9 8.5-10.1 MG/DL Corrected Calcium 9.9 8.5-10.1 MG/DL Total Bilirubin 0.9 0.1-1.0 MG/DL Aspartate Amino Transf (AST/SGOT) 29 5-34 U/L Alanine Aminotransferase (ALT/SGPT) 30 0-55 U/L Alkaline Phosphatase 90 40-136 U/L C-Reactive Protein High Sensitivity 1.98 H 0.00-0.50 MG/DL Total Protein 8.2 6.4-8.2 GM/DL Albumin 4.0 3.2-4.5 GM/DL My Orders Orders - SAQIB MANNING Cbc With Automated Diff (03/17/21 16:52) Comprehensive Metabolic Panel (03/17/21 16:52) Hs C Reactive Protein (03/17/21 16:52) Blood Culture (03/17/21 16:52) Ua Culture If Indicated (03/17/21 16:52) Cefepime Injection (Maxipime Injection) (03/17/21 17:00) Vancomycin Injection (Vancomycin Injecti (03/17/21 16:52) Pharmacy To Dose (Pharmacy To Dose) (03/17/21 17:00) Manual Differential (03/17/21 14:50) Acetaminophen Tablet (Tylenol Tablet) (03/17/21 17:45) Orthostatic Vital Signs (Adult (03/17/21 17:47) Medications Given in ED Current Medications Medications Dose Ordered Sig/Kalia Route Start Time Stop Time Status Last Admin Dose Admin Acetaminophen 1,000 mg ONCE ONCE PO 03/17/21 17:45 03/17/21 17:46 DC 03/17/21 17:49 1,000 MG Cefepime HCl 1000 mg/Sterile Water 10 ml @ 200 mls/hr ONCE ONCE IV 03/17/21 17:00 03/17/21 17:02 DC 03/17/21 17:13 200 MLS/HR Vancomycin HCl 2000 mg/Sodium Chloride 500 ml @ 260 mls/hr 1652 ONCE IV 03/17/21 16:52 03/17/21 18:47 DC 03/17/21 17:42 260 MLS/HR Vital Signs/I&O 03/17/21 03/17/21 15:02 18:09 Temp 36.6 Pulse 88 64 64 Resp 18 B/P (MAP) 140/100 (113) 138/67 (90) 139/67 (91) Blood Pressure Mean: 113 Progress Progress Note #1: Time: 16:56 Progress Note Aseptic vital signs. Labs were ordered, cefepime and vancomycin. Progress Note #2: Time: 18:40 Progress Note Patient was not able to tolerate a full set of orthostatics because she could not stand. Between her elevated white count and likely orthostasis we will asked the inpatient team to admit her for IV antibiotics. Departure Communication (Admissions) Time/Spoke to Admitting Phy: 18:30 Discussed the case with Dr. Palafox who is on-call for Dr. Mason's clinic and Ced Palafox who agrees to admit the patient on cefepime vancomycin and precautions. Impression Primary Impression: Bilateral lower leg cellulitis Additional Impression: Physical debility Disposition: ADMITTED INPATIENT Condition: Stable Admissions Decision to Admit Reason: Admit from ER (General) Decision to Admit/Date: Mar 17, 2021 Time/Decision to Admit Time: 18:20 Departure-Patient Inst. Referrals: LEENA MASON MD (PCP/Family) Primary Care Physician SAQIB MANNING Mar 17, 2021 16:56
[2021-03-17 17:00] LABS: BASOPHILS % (AUTO) 0 % (0-10); EOSINOPHILS % (AUTO) 0 % (0-10); HEMATOCRIT 44 % (35-52); LYMPHOCYTES # (AUTO) 0.3 10^3/uL (1.0-4.0); LYMPHOCYTES % (AUTO) 2 % (12-44); MEAN CORPUSCULAR HEMOGLOBIN 31 pg (25-34); MEAN CORPUSCULAR HGB CONC 32 g/dL (32-36); MEAN CORPUSCULAR VOLUME 97 fL (80-99); MEAN PLATELET VOLUME 12.4 fL (9.0-12.2); MONOCYTES # (AUTO) 1.2 10^3/uL (0.0-1.0); MONOCYTES % (AUTO) 6 % (0-12); NEUTROPHILS # (AUTO) 17.7 10^3/uL (1.8-7.8); NEUTROPHILS % (AUTO) 91 % (42-75); PLATELET COUNT 222 10^3/uL (130-400); WHITE BLOOD COUNT 19.3 10^3/uL (4.3-11.0)
[2021-03-17] MEDS ORDERED: PHARMACY TO DOSE IV ONE (17:00)
[2021-03-17] MEDS ORDERED: CEFEPIME INJECTION 1,000 MG in WATER (STERILE) FOR INJECTION 10 ML IV ONE (17:00)
[2021-03-17 17:03] LABS: POTASSIUM 4.3 MMOL/L (3.6-5.0)
[2021-03-17 17:04] LABS: CALCIUM 9.9 MG/DL (8.5-10.1)
[2021-03-17 17:05] LABS: TOTAL PROTEIN 8.2 GM/DL (6.4-8.2)
[2021-03-17 17:07] LABS: BILIRUBIN,TOTAL 0.9 MG/DL (0.1-1.0)
[2021-03-17 17:09] LABS: CREATININE SERUM 0.81 MG/DL (0.60-1.30)
[2021-03-17 17:25] LABS: BAND NEUTROPHILS 2 %; BASOPHILS % (MANUAL) 0 %; EOSINOPHILS % (MANUAL) 0 %; LYMPHOCYTES % (MANUAL) 1 %; MONOCYTES % (MANUAL) 3 %; NEUTROPHILS % (MANUAL) 94 %; TOXIC GRANULATION/VACUOLAZATIO 1+
[2021-03-17] MEDS ORDERED: ACETAMINOPHEN 500 MG TAB (TYLENOL) PO ONE (17:45)
[2021-03-17 18:09] VITALS: BP_SYST 138; BP_SYST 139; BP_DIAS 67
[2021-03-17] MEDS ORDERED: CATHETER FLUSH 10 ML SYR IV PRN (19:45)
[2021-03-17 19:54] VITALS: BP 126/73
[2021-03-17] MEDS: LACTATED RINGERS 1,000 ML IV SCH (20:09)
[2021-03-17] MEDS: APIXABAN 5 MG (ELIQUIS) TABLET PO SCH (20:09)
[2021-03-17] MEDS: ACETAMINOPHEN 325 MG TABLET PO PRN (20:09)
[2021-03-17 22:49] VITALS: BP 142/75
[2021-03-17 23:20] VITALS: BP 142/75
[2021-03-18] MEDS: CEFEPIME 1,000 MG/SWFI 10 ML IV PUSH IV SCH ×8 (00:12→17:49)
[2021-03-18 03:22] VITALS: BP 110/72
[2021-03-18] MEDS: LACTATED RINGERS 1,000 ML IV SCH ×2 (03:33→10:52)
[2021-03-18] MEDS: ACETAMINOPHEN 325 MG TABLET PO PRN ×3 (03:36→20:17)
[2021-03-18] MEDS: LEVOTHYROXINE 50 MCG (LEVOTHROID) TAB PO SCH (05:49)
[2021-03-18] MEDS: VANCOMYCIN 1 GM/NS 250 ML IVPB IV SCH ×4 (05:51→17:49)
[2021-03-18 06:11] LABS: BASOPHILS % (AUTO) 0 % (0-10); EOSINOPHILS # (AUTO) 0.1 10^3/uL (0.0-0.3); EOSINOPHILS % (AUTO) 1 % (0-10); HEMATOCRIT 36 % (35-52); HEMOGLOBIN 11.7 g/dL (11.5-16.0); LYMPHOCYTES # (AUTO) 0.7 10^3/uL (1.0-4.0); LYMPHOCYTES % (AUTO) 5 % (12-44); MEAN CORPUSCULAR HEMOGLOBIN 31 pg (25-34); MEAN CORPUSCULAR HGB CONC 32 g/dL (32-36); MEAN CORPUSCULAR VOLUME 96 fL (80-99); MEAN PLATELET VOLUME 11.7 fL (9.0-12.2); MONOCYTES # (AUTO) 0.8 10^3/uL (0.0-1.0); MONOCYTES % (AUTO) 6 % (0-12); NEUTROPHILS # (AUTO) 12.1 10^3/uL (1.8-7.8); NEUTROPHILS % (AUTO) 88 % (42-75); PLATELET COUNT 168 10^3/uL (130-400); WHITE BLOOD COUNT 13.8 10^3/uL (4.3-11.0)
[2021-03-18 06:30] LABS: CREATININE SERUM 0.75 MG/DL (0.60-1.30)
[2021-03-18 08:07] VITALS: BP 133/66
[2021-03-18] MEDS: APIXABAN 5 MG (ELIQUIS) TABLET PO SCH ×2 (08:55→20:18)
--- NOTE | 2021-03-18 10:55 | History & Physical ---
History of Present Illness History of Present Illness Reason for visit/HPI 81 yo F with history of CHF, htn, hld, afib, hypothyroidism admitted for lower extremity cellulitis. Last admission was for a UTI in December 2020- which there was concern about her home situation and personal care abilities. Patient reports she has been battling cellulitis in her legs for 6 months. She has been through 3-4 rounds of antibiotics (unsure of what they were though). Spoke with daughter this AM and she notes her mom can not always get up and when this happens they have to call Fire Dept or have her sons come over and help her up. Daughter is also concerned that her mom's memory is slipping and more confused. She does have psychometrist from 9am to 1pm -, but not on Saturday. She is going to talk with her sisters and consider their options- of returning home vs a SNU vs penitentiary placement. SW to carry on this discussion Saturday. Date of Admission Mar 17, 2021 at 18:30 Date Seen by a Provider: Mar 18, 2021 Time Seen by a Provider: 10:25 I consulted on this patient on 03/18/21 10:50 Attending Physician Ced Clifton MD Admitting Physician Sonia Mason MD Consult Allergies and Home Medications Allergies Coded Allergies: adhesive tape (Verified Allergy, Severe, RASH/ ITCHING, 11/21/18) gemfibrozil (Verified Allergy, Severe, SEPSIS, 12/21/19) codeine (Verified Allergy, Mild, N/V, 12/21/19) hydrocodone (Verified Adverse Reaction, Mild, NAUSEA, 12/21/19) Home Medications Apixaban 5 Mg Tablet, 5 MG PO BID, (Reported) Atorvastatin Calcium 20 Mg Tablet, 20 MG PO HS, (Reported) Cefuroxime Axetil 250 Mg Tablet, 250 MG PO BID Prescribed by: AGUSTIN SHIELDS on 03/10/21 1509 Levothyroxine Sodium 50 Mcg Tablet, 50 MCG PO DAILY, (Reported) Lisinopril 10 Mg Tablet, 10 MG PO HS, (Reported) Lutein/Zeaxanthin 1 Each Capsule, 1 EACH PO DAILY, (Reported) Metoprolol Succinate 25 Mg Tab.er.24h, 25 MG PO HS, (Reported) [place] 3 Polyunsat Fatty Acids 1,000 Mg Cap, 1,000 MG PO DAILY, (Reported) Potassium Chloride 10 Meq Tablet.er, 10 MEQ PO Q48H, (Reported) [Apply Cider Gummy] , 1 EA PO TID, (Reported) Patient Home Medication List Home Medication List Reviewed: Yes Past Baoqhdz-Ciawup-Spsczi Hx Patient Social History Tobacco Use?: No Smoking Status: Never a Smoker Smokeless Tobacco Frequency: Never a User Use of E-Cig and/or Vaping dev: No Substance use?: No Alcohol Use?: No Pt feels they are or have been: No Immunizations Up To Date Date of Influenza Vaccine: Jun 01, 2019 Tetanus Booster (TDap): Unknown Hepatitis A: No Hepatitis B: No Date of Pneumonia Vaccine: Nov 04, 2016 Seasonal Allergies Seasonal Allergies: Yes Current Status status: No status: No Advance Directives: Yes Advance Directive Location: Family to bring in copy Communicates: Verbally Primary Language: Niuean Preferred Spoken Language: Niuean Is interpretation needed?: No Implanted or Applied Medical D: Orthopedic hardware, Pacemaker Past Medical History Surgeries: Gallbladder, Joint Replacement, Pacemaker Currently Using CPAP: No Currently Using BIPAP: No Atrial Fibrillation, Coronary Artery Disease, Hypertension Sexually Transmitted Disease: No HIV/AIDS: No Arthritis Hypothyroidsim Cataract Loss of Vision: Denies Hearing Impairment: Denies Did You Recieve Any Treatments: No Anxiety, Depression Blood Disorders: No Adverse Reaction/Blood Tranf: No (HAS HAD BLOOD WITH NO REACTION) HTN, HLD, hypothyroidim, A-fib Family Medical History No Pertinent Family Hx non-contributory Review of Systems Review of Systems General: No Chills, No Night Sweats HEENT: No Head Aches Pulmonary: Dyspnea; No Cough Cardiovascular: No: Chest Pain, Palpitations Gastrointestinal: No: Nausea, Vomiting Genitourinary: Dysuria, Frequency Neurological: Weakness All Other Systems Reviewed All Other Systems Reviewed: Yes Physical Exam Vital Signs Vital Signs - First Documented 03/17/21 03/17/21 03/17/21 15:02 19:46 19:54 Temp 36.6 Pulse 88 Resp 18 B/P (MAP) 140/100 (113) Pulse Ox 99 O2 Delivery Room Air Capillary Refill : Less Than 3 Seconds Height, Weight, BMI Height: 5'3.00" Weight: 339lbs. 0.0oz. [id number]; 67.88 BMI Method: General Appearance: Mild Distress HEENT: PERRL/EOMI Neck: Non Tender, Supple Respiratory: Chest Non Tender, Lungs Clear, Normal Breath Sounds Cardiovascular: Regular Rate, Rhythm Gastrointestinal: Non Tender, Soft Rectal: Deferred Back: No CVA Tenderness, No Vertebral Tenderness Extremity: Inflammation, Pedal Edema, Swelling, Other (warmth, erythema) Neurologic/Psychiatric: Alert, Oriented x3 Skin: Erythema, Rash Assessment/Plan Assessment/Plan Admission Dx cellulitis bilateral debility Admission Status: Inpatient Order (span 2 midnights) Reason for Inpatient Admission: failed outpatient therapy of cellulitis- has been through 3 rounds of oral antibiotics. Will need IV antibiotics for >48hours. Also will see what her blood cultures show- as one out of 2 is positive for gram neg. Assessment and Plan admitted 03/17/21 03/18/21- on vanc and cefepime covering for cellulitis. She has underlying venous stasis so her legs are going to continue to be an issue. Ordered PT for her debility. -1 of 2 blood cultures gram neg- will wait for results. -stopped IVF and gave 40mg lasix- for crackles noted this afternoon. Dispo: Spoke with daughter this AM and she notes her mom can not always get up and when this happens they have to call Fire Dept or have her sons come over and help her up. She is going to talk with her sisters and consider their options- of returning home vs a SNU vs penitentiary placement. SW to carry on this discussion Saturday. Problems: (1) Bilateral lower leg cellulitis (2) Atrial fibrillation Assessment & Plan: continue eliquis. (3) Hypothyroidism Assessment & Plan: continue levothyroxine (4) Essential (primary) hypertension Assessment & Plan: resume home blood pressure medication (5) HLD (hyperlipidemia) (6) Debility (7) Venous stasis dermatitis Qualifiers: Qualified Codes: I87.2 - Venous insufficiency (chronic) (peripheral) CED CLIFTON MD Mar 18, 2021 10:55
[2021-03-18 12:00] VITALS: BP 160/68
[2021-03-18] MEDS ORDERED: FUROSEMIDE 40 MG/4 ML INJ (LASIX) IVP ONE (13:15)
[2021-03-18] MEDS ORDERED: fluCOnazole (DIFLUCAN) 100 MG TAB PO ONE ×2 (14:45→21:00)
--- NOTE | 2021-03-18 15:19 | Physical Therapy Evaluation ---
PT Evaluation-General Medical Diagnosis Admission Date Mar 17, 2021 at 18:30 Medical Diagnosis: lower extremity cellulitis Onset Date: Mar 17, 2021 Therapy Diagnosis Therapy Diagnosis: gait deficit, generalized weakness Height/Weight Height (Feet): 5 Height (Inches): 3.00 Weight (Pounds): 339 Weight (Ounces): 0.0 Precautions Precautions/Isolations: Fall Prevention, Standard Precautions Weight Bear Status Right Lower Extremity: Right Weight Bearing/Tolerated Left Lower Extremity: Left Weight Bearing/Tolerated Referral Physician: Dr. Palafox Reason for Referral: Evaluation/Treatment Medical History Pertinent Medical History: Atrial Fib, CAD, HTN Social History Home: Apartment Current Living Status: Alone PT Steps Into Home: 0 PT Steps Inside Home: 0 Patient reports that she has homehealth nursing come a few times per week Prior Prior Level of Function SCALE: Activities may be completed with or without assistive devices. 5-Cjqeihlzko-ybmheha completes the activity by him/herself with no assistance from a helper. 5-Set-up or Clean-up Assistance-helper sets up or cleans up; patient completes activity. [place] assists only prior to or following the activity. 4-Supervision or Touching Assistance-helper provides verbal cues and/or touching/steadying and/or contact guard assistance as patient completes activity. Assistance may be provided throughout the activity or intermittently. 3-Partial/Moderate Assistance-helper does LESS THAN HALF the effort. [place] lifts, holds or supports trunk or limbs, but provides less than half the effort. 2-Substantial/Maximal Assistance-helper does MORE THAN HALF the effort. [place] lifts or holds trunk or limbs and provides more than half the effort. 0-Jqctzsthv-msytdl does ALL the effort. Patient does none of the effort to complete the activity. Or, the assistance of 2 or more helpers is required for the patient to complete the activity. If activity was not attempted, code reason: 7-Patient Refused. 9-Not Applicable-not attempted and the patient did not perform the activity before the current illness, exacerbation or injury. 10-Not Attempted due to Environmental Limitations-(lack of equipment, weather restraints, etc.). 88-Not Attempted due to Medical Conditions or Safety Concerns. Bed Mobility: 6 Transfers (B,C,W/C): 6 Gait: 6 Stairs: 6 Wheelchair Mobility: 88 Indoor Mobility (Ambulation): Independent Stairs: Not Applicalbe Prior Devices Use: Walker Prior Device Use: FWW PT Evaluation-Current Subjective Patient rates pain currently at 0/10. Reports she has to use the bathroom and would greatly like to use the BSC. Objective Patient Orientation: Person, Place, Time, Situation Integumentary/Posture Integumentary Please see nurses notes. Neuromuscular (Tone, Coordination, Reflexes) Coordination altered currently due to strength deficit and edema. Unable to accurately assess coordination at this time. Sensory Vision: Functional Hearing: Functional Sensation Right Lower Extremit: Intact Sensation Left Lower Extremity: Intact Transfers Roll Left to Right (QC): 2 Sit to Lying (QC): 2 Lying to Sitting/Side of Bed(Q: 2 Sit to Stand (QC): 1 Chair/Egu-ks-Tgtyj Xfer(QC): 1 Toilet Transfer (QC): 1 Car Transfer (QC): 88 Gait Does the Patient Walk?: No and Walking Goal IS indicated Mode of Locomotion: Walk Anticipated Mode of Locomotion: Both Walk 10 feet (QC): 1 Walk 50 ft with 2 Turns(QC): 1 Walk 150 ft (QC): 1 Walking 10ft/uneven surface-QC: 1 Distance: 2 feet Gait Assistive Device: FWW Comments/Gait Description Patient only able to minimally lift each LE up to allow each foot to progress a couple of inches at a time. Wheelchair Training Does the Pt Use a Wheelchair?: No Wheel 50 ft with 2 turns (QC): 88 Wheel 150 ft (QC): 8 Stairs #of Steps: 0 1 Step (curb) (QC): 88 4 Steps (QC): 88 12 Steps (QC): 88 Balance Sitting Static: Poor Sitting Dynamic: Poor Standing Static: Poor Standing Dynamic: Poor Picking up an Object (QC): 1 Treatment Functional Activity Assessment/Needs Patient lying supine in bed upon PT arrival. Requires max A x 2 for bed mobility and transfers to the BSC. Patient attempts to ambulate, however after a couple of steps on each foot, she is unable to progress any further. She required the BSC to be pulled up under her. Patient required total assistance for cleaning from CNAs. Patient performed Sit to stand with max A x 2 and the BSC was moved upon patient standing with the bed moved behind her. Patient required max a x 3 for bed mobility and total assistance for sliding up in bed. Patient in bed post treatment with all needs met, nursing notified, call light in hand, and MANAGER BANKING in the room. Rehab Potential: Fair Equipment Needs Unsure at this time but may benefit from a w/c if patient unable to return to PLOF. PT Short Term Goals Short Term Goals Time Frame: Apr 01, 2021 Roll Left & Right: 3 Lying to sitting on side of be: 3 Sit to stand: 3 Chair/kfo-ox-rclwz transfer: 3 Toilet transfer: 3 Walk 10 feet: 2 Does pt use a wc or scooter: Yes Wheel 50ft w/2 turns: 3 Wheel 150 feet: 3 Type: Manual PT [facility] Goals Toddler Caregiver Goals PT [facility] Goals Time Frame: Apr 15, 2021 Roll Left & Right (QC): 4 Sit to Lying (QC): 4 Lying-Sitting on Side/Bed(QC): 4 Sit to Stand (QC): 4 Chair/Zvl-rs-Azznk Xfer(QC): 4 Toilet Transfer (QC): 4 Does the Patient Walk: No and Walking Goal IS indicated Walk 10 feet (QC): 3 Walk 50ft with 2 Turns (QC): 3 Walk 150 ft (QC): 3 Picking up an Object (QC): 4 Wheel 50 feet with 2 turns (QC: 4 Type: Manual Wheel 150 feet: 4 Type: Manual PT Plan Problem List Problem List: Activity Tolerance, Functional Strength, Safety, Balance, Gait, Transfer, Bed Mobility, ROM Treatment/Plan Treatment Plan: Continue Plan of Care Treatment Plan: Bed Mobility, Education, Functional Activity Julia, Functional Strength, Group Therapy, Gait, Safety, Therapeutic Exercise, Transfers Treatment Duration: Jun 24, 2021 Frequency: 6 times per week Estimated Hrs Per Day: .25 hour per day Safety Risks/Education Patient Education: Gait Training, Transfer Techniques Teaching Recipient: Patient, Family Teaching Methods: Demonstration, Discussion Response to Teaching: Verbalize Understanding Discharge Recommendations Therapy Discharge Recommendati: Post Acute PT Time/GCodes Time In: 1400 Time Out: 1425 Total Billed Treatment Time: 25 Total Billed Treatment Visit, KESHAV Mathis PT Mar 18, 2021 15:19
[2021-03-18 16:43] VITALS: BP 141/83
[2021-03-18 19:14] VITALS: BP 150/88
[2021-03-18] MEDS: MICONAZOLE 2% POWDER (DESENEX AF) 90 GM TOP SCH (20:18)
[2021-03-19] VITALS (7 sets, daily range): BP systolic 116–143; BP diastolic 59–84
[2021-03-19] MEDS: CEFEPIME 1,000 MG/SWFI 10 ML IV PUSH IV SCH ×8 (01:31→18:15)
[2021-03-19] MEDS: ACETAMINOPHEN 325 MG TABLET PO PRN ×2 (02:48→20:39)
[2021-03-19] MEDS ORDERED: TROUGH ORDER-PHARMACY XX NR (06:00)
[2021-03-19] MEDS: VANCOMYCIN 1 GM/NS 250 ML IVPB IV SCH ×2 (06:36)
[2021-03-19] MEDS: LEVOTHYROXINE 50 MCG (LEVOTHROID) TAB PO SCH (06:36)
[2021-03-19] MEDS: MICONAZOLE 2% POWDER (DESENEX AF) 90 GM TOP SCH ×2 (08:47→20:40)
[2021-03-19] MEDS: APIXABAN 5 MG (ELIQUIS) TABLET PO SCH ×2 (08:47→20:40)
--- NOTE | 2021-03-19 09:55 | Progress Note ---
Subjective Subjective Date Seen by Provider: Mar 19, 2021 Time Seen by Provider: 10:05 No overnight events. Temp did hit 38C. WBC trending down. PT assessed her- she is unable to ambulate and requires max assist. Pt has no complaints this AM but did say she didn't sleep well. She admitted sh e thinks the day she has to go to a facility is coming. Review of Systems General: No Chills, No Night Sweats HEENT: No Head Aches Pulmonary: Dyspnea (on exertion); No Cough Cardiovascular: No: Chest Pain, Palpitations Gastrointestinal: No: Nausea, Vomiting Genitourinary: No Dysuria, No Frequency Neurological: Weakness All Other Systems Reviewed All Other Systems Reviewed: Yes Objective Exam Vital Signs Vital Signs Date Time Temp Pulse Resp B/P (MAP) Pulse Ox O2 Delivery O2 Flow Rate FiO2 03/19/21 03:37 37.0 59 18 116/59 (78) 94 Room Air 03/19/21 00:00 36.6 60 18 137/61 (86) 96 Room Air 03/18/21 22:02 38.1 03/18/21 20:18 Room Air 03/18/21 20:17 38.3 03/18/21 19:14 38.3 62 20 150/88 (108) 98 Room Air 03/18/21 16:43 37.7 64 22 141/83 (102) 98 Room Air 03/18/21 12:00 36.5 68 22 160/68 (98) 92 Room Air I & O 03/19/21 07:00 Intake Total 2550 ml Output Total 2200 ml Balance 350 ml General Appearance: Mild Distress HEENT: PERRL/EOMI Neck: Non Tender, Supple Respiratory: Chest Non Tender, Lungs Clear, Normal Breath Sounds Cardiovascular: Regular Rate, Rhythm Gastrointestinal: Non Tender, Soft Rectal: Deferred Back: No CVA Tenderness, No Vertebral Tenderness Extremity: Inflammation, Pedal Edema, Swelling, Other (warmth, erythema) Neurologic/Psychiatric: Alert, Oriented x3 Skin: Erythema, Rash Results Lab Laboratory Tests 03/19/21 05:32: Vancomycin Level Trough 12.3 Microbiology 03/17/21 Blood Culture - Preliminary, Resulted Pseudomonas aeruginosa Assessment/Plan Assessment/Plan Admission Dx cellulitis bilateral debility Assessment and Plan admitted 03/17/21 03/18/21- on vanc and cefepime covering for cellulitis. She has underlying venous stasis so her legs are going to continue to be an issue. Ordered PT for her debility. -1 of 2 blood cultures gram neg- pseudomonas will wait for results. -stopped IVF and gave 40mg lasix- for crackles noted this afternoon. 03/19/21- Oxygen sats mid 90s on room air. WBC trending down. legs are improving. PT assessed her- she is unable to ambulate and requires max assist. awaiting blood culture results. Pt's daughter says that Clara's right hip had been hurting her- ordering hip/pelvic xrays Dispo: daughter notes her mom can not always get up and when this happens they have to call Fire Dept or have her sons come over and help her up. Daughter is going to talk with her sisters and consider their options- of returning home vs a SNU vs retirement placement. SW to carry on this discussion Saturday. Problems: (1) Bilateral lower leg cellulitis (2) Atrial fibrillation Assessment & Plan: continue eliquis. (3) Hypothyroidism Assessment & Plan: continue levothyroxine (4) Essential (primary) hypertension Assessment & Plan: resume home blood pressure medication (5) HLD (hyperlipidemia) (6) Debility (7) Venous stasis dermatitis Qualifiers: Qualified Codes: I87.2 - Venous insufficiency (chronic) (peripheral) (8) Right hip pain Admission Dx cellulitis bilateral debility Clinical Quality Measures Admission Status Admission Dx cellulitis bilateral debility ELEONORA CLIFTON MD Mar 19, 2021 09:55
--- NOTE | 2021-03-19 14:38 | Diagnostic Imaging Report ---
INDICATION: Hip pain and pelvic pain. Inability to walk. FINDINGS: Examination is limited by large body habitus which results in overall poor tissue penetration. There is no convincing evidence to suggest an acute proximal femoral fracture on either the right or left. There are no findings of a dislocation or evidence of pubic symphysis or SI joint diastases. IMPRESSION: 1. No evidence to suggest proximal femoral fracture or hip dislocation. There is no pelvic diastases. Examination is however limited by poor tissue penetration secondary to body habitus which results in diminished sensitivity of this exam. Dictated by: Dictated on workstation # [id number]
[2021-03-19] MEDS: VANCOMYCIN 1250 MG/NS 250 ML IVPB IV SCH ×2 (18:18)
[2021-03-20] MEDS: CEFEPIME 1,000 MG/SWFI 10 ML IV PUSH IV SCH ×12 (00:23→23:59)
[2021-03-20] MEDS: ACETAMINOPHEN 325 MG TABLET PO PRN ×3 (02:48→19:58)
[2021-03-20 04:00] VITALS: BP 159/80
[2021-03-20] MEDS: LEVOTHYROXINE 50 MCG (LEVOTHROID) TAB PO SCH (06:02)
[2021-03-20] MEDS: VANCOMYCIN 1250 MG/NS 250 ML IVPB IV SCH ×6 (06:02→18:09)
[2021-03-20 08:00] VITALS: BP 123/72
[2021-03-20] MEDS: MICONAZOLE 2% POWDER (DESENEX AF) 90 GM TOP SCH ×2 (08:36→19:59)
[2021-03-20] MEDS: APIXABAN 5 MG (ELIQUIS) TABLET PO SCH ×2 (08:37→19:57)
--- NOTE | 2021-03-20 08:41 | Progress Note ---
Subjective Subjective Date Seen by Provider: Mar 20, 2021 Time Seen by Provider: 08:41 PT REPORTS THAT SHE IS FATIGUED, CANNOT MANAGE AT HOME ANY MORE, IS WILLING TO GO TO A JAIL. SHE REPORTS THAT SHE DOES NOT WALK, IS UNABLE TO PROPEL HERSELF AROUND THE HOUSE UNDER HER OWN POWER DUE TO HER BODY SIZE AND MUSCLE WEAKNESS. Review of Systems General: No Chills, No Night Sweats; Fatigue HEENT: No Head Aches Pulmonary: Dyspnea (on exertion); No Cough Cardiovascular: No: Chest Pain, Palpitations Gastrointestinal: No: Nausea, Vomiting Genitourinary: No Dysuria, No Frequency Neurological: Weakness All Other Systems Reviewed All Other Systems Reviewed: Yes Objective Exam Vital Signs Vital Signs Date Time Temp Pulse Resp B/P (MAP) Pulse Ox O2 Delivery O2 Flow Rate FiO2 03/20/21 04:00 36.6 63 20 159/80 (106) 95 Room Air 03/19/21 23:30 36.8 61 20 137/65 (89) 92 Room Air 03/19/21 21:27 37.3 03/19/21 20:39 Room Air 03/19/21 20:39 37.7 03/19/21 20:08 37.7 60 22 141/80 (100) 98 Room Air 03/19/21 15:30 37.5 60 22 131/84 (100) 99 Room Air 03/19/21 12:00 36.7 60 20 124/81 (95) 97 Room Air I & O 03/20/21 07:00 Intake Total 2200 ml Output Total 1850 ml Balance 350 ml General Appearance: No Apparent Distress, WD/WN HEENT: PERRL/EOMI, Pharynx Normal Neck: Non Tender, Supple Respiratory: Chest Non Tender, Lungs Clear, Normal Breath Sounds Cardiovascular: Regular Rate, Rhythm Gastrointestinal: Non Tender, Soft Rectal: Deferred Extremity: Inflammation, Pedal Edema, Swelling, Other (warmth, erythema) Neurologic/Psychiatric: Alert, Oriented x3 Skin: Erythema Results Lab Microbiology 03/17/21 Blood Culture - Preliminary, Resulted Pseudomonas aeruginosa Assessment/Plan Assessment/Plan Admission Dx CELLULITIS BILATERAL LOWER EXTREMITIES ATRIAL FIBRILLATION HYPOTHYROIDISM ESSENTIAL HYPERTENSION HYPERLIPIDEMIA DEBILITY VENOUS STASIS DERMATITIS Assessment and Plan CELLULITIS BILATERAL LOWER EXTREMITIES ATRIAL FIBRILLATION HYPOTHYROIDISM ESSENTIAL HYPERTENSION HYPERLIPIDEMIA DEBILITY VENOUS STASIS DERMATITIS CELLULITIS BILATERAL LOWER EXTREMITIES - PT ON VANCOMYCIN AND ROCEPHIN - MONITOR CULTURE REPORT ATRIAL FIBRILLATION - RATE CONTROLLED - CONTINUE CURRENT REGIMEN HYPOTHYROIDISM - RESUMED LEVOTHYROXINE ESSENTIAL HYPERTENSION - STABLE, ON HOME REGIMEN, MONITOR PRESSURE AND HEART RATE HYPERLIPIDEMIA - RESUMED STATIN THERAPY DEBILITY WILL NEED TO BE IN JAIL, PT CONTINUES TO FALL AT HOME AND CANNOT WALK. SHE CONTNUES TO DECLINE WITHOUT APPROPRIATE CARE BEING ABLE TO BE GIVEN AT HOME. VENOUS STASIS DERMATITIS - DUE TO SEVERE MORBID OBESITY - CONTINUE WITH WRAPS AND ELEVATION OF LEGS ABLE. LEENA CHAPPELL MD Mar 20, 2021 08:41
[2021-03-20] MEDS ORDERED: ACET325T38 PO (09:03)
[2021-03-20] MEDS ORDERED: LEVO-129 PO (09:03)
[2021-03-20] MEDS ORDERED: POTA20TA15 PO (09:03)
--- NOTE | 2021-03-20 09:38 | Physical Therapy Daily Note ---
PT Daily Note-Current Subjective Patient in bed pre tx, agrees to PT, has 10/10 pain "all over", nurse notified and she said she would be in with pain meds soon. Appearance Patient in bed post tx with nurse call, phone, tray, all needs met. Mental Status Patient Orientation: Person, Place, Situation Attachments: IV has purewick (nurse aide changes during tx) Transfers SCALE: Activities may be completed with or without assistive devices. 8-Weusyyulkk-zhbplbt completes the activity by him/herself with no assistance from a helper. 5-Set-up or Clean-up Assistance-helper sets up or cleans up; patient completes activity. [place] assists only prior to or following the activity. 4-Supervision or Touching Assistance-helper provides verbal cues and/or touching/steadying and/or contact guard assistance as patient completes activity. Assistance may be provided throughout the activity or intermittently. 3-Partial/Moderate Assistance-helper does LESS THAN HALF the effort. [place] lifts, holds or supports trunk or limbs, but provides less than half the effort. 2-Substantial/Maximal Assistance-helper does MORE THAN HALF the effort. [place] lifts or holds trunk or limbs and provides more than half the effort. 9-Pdxsgfmft-kvutky does ALL the effort. Patient does none of the effort to complete the activity. Or, the assistance of 2 or more helpers is required for the patient to complete the activity. If activity was not attempted, code reason: 7-Patient Refused. 9-Not Applicable-not attempted and the patient did not perform the activity before the current illness, exacerbation or injury. 10-Not Attempted due to Environmental Limitations-(lack of equipment, weather restraints, etc.). 88-Not Attempted due to Medical Conditions or Safety Concerns. Roll Left & Right (QC): 1 Patient needs cleaned and bedding changed after a BM and incontinence of urine. Patient is dependent for rolling from side to side for cleaning and changing. She is not able to assist with her legs but can slightly with her arms. Weight Bearing Right Lower Extremity: Right Weight Bearing/Tolerated Left Lower Extremity: Left Weight Bearing/Tolerated Treatments rolling, bed mobility, cleaning/changing from BM Assessment Current Status: Poor Progress dependent for mobility PT Short Term Goals Short Term Goals Time Frame: Apr 01, 2021 Roll Left & Right: 3 Lying to sitting on side of be: 3 Sit to stand: 3 Chair/yrq-jo-vpyuk transfer: 3 Toilet transfer: 3 Walk 10 feet: 2 Does pt use a wc or scooter: Yes Wheel 50ft w/2 turns: 3 Wheel 150 feet: 3 Type: Manual PT [facility] Goals Senior Care Goals PT Senior Care Goals Time Frame: Apr 15, 2021 Roll Left & Right (QC): 4 Sit to Lying (QC): 4 Lying-Sitting on Side/Bed(QC): 4 Sit to Stand (QC): 4 Chair/Acb-xj-Iydlp Xfer(QC): 4 Toilet Transfer (QC): 4 Does the Patient Walk: No and Walking Goal IS indicated Walk 10 feet (QC): 3 Walk 50ft with 2 Turns (QC): 3 Walk 150 ft (QC): 3 Picking up an Object (QC): 4 Wheel 50 feet with 2 turns (QC: 4 Type: Manual Wheel 150 feet: 4 Type: Manual PT Plan Problem List Problem List: Activity Tolerance, Functional Strength, Safety, Balance, Gait, Transfer, Bed Mobility, ROM Treatment/Plan Treatment Plan: Continue Plan of Care Treatment Plan: Bed Mobility, Education, Functional Activity Julia, Functional Strength, Group Therapy, Gait, Safety, Therapeutic Exercise, Transfers Treatment Duration: Jun 24, 2021 Frequency: 6 times per week Estimated Hrs Per Day: .25 hour per day Safety Risks/Education Patient Education: Correct Positioning, Safety Issues Teaching Recipient: Patient Teaching Methods: Demonstration, Discussion Response to Teaching: Reinforcement Needed Time/GCodes Time In: 902 Time Out: 912 Total Billed Treatment Time: 10 Total Billed Treatment 1 visit FA FIOR KIRAN PT Mar 20, 2021 09:38
[2021-03-20 10:15] LABS: HEMATOCRIT 39 % (35-52); HEMOGLOBIN 12.6 g/dL (11.5-16.0); MEAN CORPUSCULAR HEMOGLOBIN 31 pg (25-34); MEAN CORPUSCULAR HGB CONC 32 g/dL (32-36); MEAN CORPUSCULAR VOLUME 97 fL (80-99); PLATELET COUNT 206 10^3/uL (130-400); WHITE BLOOD COUNT 8.6 10^3/uL (4.3-11.0)
[2021-03-20 10:23] LABS: POTASSIUM 3.9 MMOL/L (3.6-5.0)
[2021-03-20 10:29] LABS: CREATININE SERUM 0.83 MG/DL (0.60-1.30)
[2021-03-20 12:00] VITALS: BP 139/88
[2021-03-20 16:00] VITALS: BP 114/70
[2021-03-20 20:00] VITALS: BP 140/72
[2021-03-20 23:55] VITALS: BP 126/71
[2021-03-21] MEDS: ACETAMINOPHEN 325 MG TABLET PO PRN (01:26)
[2021-03-21 04:30] VITALS: BP 147/71
[2021-03-21] MEDS ORDERED: TROUGH ORDER-PHARMACY XX NR (06:00)
[2021-03-21] MEDS: CEFEPIME 1,000 MG/SWFI 10 ML IV PUSH IV SCH ×2 (06:05)
[2021-03-21] MEDS: LEVOTHYROXINE 50 MCG (LEVOTHROID) TAB PO SCH (06:05)
[2021-03-21] MEDS: VANCOMYCIN 1250 MG/NS 250 ML IVPB IV SCH ×2 (06:43)
[2021-03-21 08:00] VITALS: BP 162/89
[2021-03-21] MEDS: MICONAZOLE 2% POWDER (DESENEX AF) 90 GM TOP SCH (09:05)
[2021-03-21] MEDS: APIXABAN 5 MG (ELIQUIS) TABLET PO SCH (09:05)
--- NOTE | 2021-03-21 10:56 | Discharge Summary ---
Diagnosis/Chief Complaint Date of Admission Mar 17, 2021 at 18:30 Date of Discharge Admission Diagnosis Admission Diagnosis CELLULITIS BILATERAL LOWER EXTREMITIES ATRIAL FIBRILLATION HYPOTHYROIDISM ESSENTIAL HYPERTENSION HYPERLIPIDEMIA DEBILITY VENOUS STASIS DERMATITIS Discharge Diagnosis CELLULITIS BILATERAL LOWER EXTREMITIES ATRIAL FIBRILLATION HYPOTHYROIDISM ESSENTIAL HYPERTENSION HYPERLIPIDEMIA DEBILITY VENOUS STASIS DERMATITIS Discharge Summary Discharge Physical Examination Allergies: Coded Allergies: adhesive tape (Verified Allergy, Severe, RASH/ ITCHING, 11/21/18) gemfibrozil (Verified Allergy, Severe, SEPSIS, 12/21/19) codeine (Verified Allergy, Mild, N/V, 12/21/19) hydrocodone (Verified Adverse Reaction, Mild, NAUSEA, 12/21/19) Vitals & I&Os Vital Signs Date Time Temp Pulse Resp B/P (MAP) Pulse Ox O2 Delivery O2 Flow Rate FiO2 03/21/21 08:00 36.3 59 20 162/89 (113) 96 Room Air General Appearance: Alert, Oriented X3, Cooperative, No Acute Distress HEENT: Atraumatic, PERRLA, Mucous Memb Moist/Quinn Respiratory: Clear to Auscultation, Normal Air Movement Cardiovascular: Regular Rate Abdominal: Normal Bowel Sounds, Soft, No Tenderness Extremities: Other (WOODY VENOUS STASIS CHANGES BILATERAL LOWER LEGS WITH ERYTHEMA, VENOUS INSUFFICIENCY CHANGES, HEMOSIDERAN PIGMENT) Neuro: Normal Speech, Cranial Nerves 3-12 NL Psych/Mental Status: Mental Status NL, Mood NL Hospital Course Was the Problem List Reviewed?: Yes CELLULITIS BILATERAL LOWER EXTREMITIES ATRIAL FIBRILLATION HYPOTHYROIDISM ESSENTIAL HYPERTENSION HYPERLIPIDEMIA DEBILITY VENOUS STASIS DERMATITIS CELLULITIS BILATERAL LOWER EXTREMITIES - PT ON VANCOMYCIN AND ROCEPHIN - will transition to oral levaquin on dc - CULTURE REPORT FOLLOWS: Pseudomonas aerugenosa INTERP GENTAMICIN S TOBRAMYCIN S CEFTAZIDIME S CEFEPIME S PIP/TAZO S LEVOFLOXACIN S CIPROFLOXACIN S IMIPENEM S MEROPENEM S AZTREONAM I ATRIAL FIBRILLATION - RATE CONTROLLED - CONTINUE CURRENT REGIMEN HYPOTHYROIDISM - RESUMED LEVOTHYROXINE ESSENTIAL HYPERTENSION - STABLE, ON HOME REGIMEN, MONITOR PRESSURE AND HEART RATE HYPERLIPIDEMIA - RESUMED STATIN THERAPY DEBILITY WILL NEED TO BE IN HALF-WAY, PT CONTINUES TO FALL AT HOME AND CANNOT WALK. SHE CONTINUES TO DECLINE WITHOUT APPROPRIATE CARE BEING ABLE TO BE GIVEN AT HOME. VENOUS STASIS DERMATITIS - DUE TO SEVERE MORBID OBESITY - CONTINUE WITH WRAPS AND ELEVATION OF LEGS ABLE. Pending Labs Discharge Instructions to patient/family Please see electronic discharge instructions given to patient. Discharge Medications Reviewed and agree with Discharge Medication list on patient's Discharge Instruction sheet LEENA CHAPPELL MD Mar 21, 2021 10:56
[2021-03-21] MEDS ORDERED: LACT1CAP87 PO (11:00)
[2021-03-21] MEDS ORDERED: LEVO500T80 PO (11:00)
--- NOTE | 2021-03-21 11:03 | Discharge Inst-Skilled Nursing ---
Discharge Inst-Skilled NF Reconcile Patient Problems Problems Reviewed?: Yes Patient Instructions Patient Problems: urinary tract infection weakness hypertension obesity gait dysfunction Consult/Follow Up/Orders Follow Up Appt.: 1 wk with chastity [facility] Admit to: [facility] of pt choice Certification (SNF) I certify that SNF services are required to be given on an inpatient basis because of the above named patient's need for fci care on a continuing basis for the conditions(s) for which he/she was receiving inpatient hospital services prior to his/her transfer to the SNF. Snf Facility Order: Nursing Services, Tour Counselor-Evaluate & Treat, Physical Therapy-Evaluate & Treat Oxygen Delivery Method: Room Air Discharge Diet: Regular Diet Daily Activity as Tolerated: Yes New & Resume Previous Orders Leena Mason Mar 21, 2021 11:01 Medication List: Active Scripts Active Acidophilus Lactobacilli (Lactobacillus Acidophilus) 1 Each Capsule 1 Each PO TID Levofloxacin 500 Mg Tablet 500 Mg PO DAILY Reported Tylenol (Acetaminophen) 325 Mg Tablet 650 Mg PO Q6H PRN Euthyrox (Levothyroxine Sodium) 50 Mcg Tablet 50 Mcg PO DAILY Potassium Chloride 20 Meq Tab.er.prt 10 Meq PO BID TAKES (20MEQ) TABLET [Apply Cider Gummy] 1 Ea PO TID Ocuvite Blue Light 25-5 mg Sfg (Lutein/Zeaxanthin) 1 Each Capsule 1 Each PO DAILY Metoprolol Succinate 25 Mg Tab.er.24h 25 Mg PO HS Lisinopril 10 Mg Tablet 10 Mg PO HS Eliquis (Apixaban) 5 Mg Tablet 5 Mg PO BID Atorvastatin Calcium 20 Mg Tablet 20 Mg PO HS Fish Oil 1,000 mg Capsule (Wendel 3 Polyunsat Fatty Acids) 1,000 Mg Cap 1,000 Mg PO BID Lab results: Laboratory Tests Test 03/20/21 12:25 03/21/21 05:41 Range/Units SARS-CoV-2 RNA (RT-PCR) Not Detected Not Detecte Vancomycin Level Trough 17.3 10.0-20.0 UG/ML My orders: Orders - LEENA MASON MD Covid 19 Inhouse Test (03/20/21 11:23) Sodium 2g (2000 Mg) (03/20/21 Lunch) Covid-19 Vacc,Mrna(Moderna)/Pf (Moderna (03/21/21 12:00) Pending Discharge Order (03/21/21 10:56) LEENA MASON MD Mar 21, 2021 11:03
[2021-03-21] MEDS ORDERED: COVID-19 VACC,MRNA(MODERNA)/PF 100 MCG/0.5 ML VIAL IM ONE (12:00)
[2021-03-21] MEDS ORDERED: LACTOBACILLUS ACIDOPHILUS (PROBIOTIC) CAPSULE PO SCH (13:00)
--- NOTE | 2021-03-21 13:53 | Physical Therapy Daily Note ---
PT Daily Note-Current Subjective Patient agrees to PT. Mental Status Patient Orientation: Normal For Age Attachments: IV Transfers SCALE: Activities may be completed with or without assistive devices. 3-Grhqnvsyhl-pwppdea completes the activity by him/herself with no assistance from a helper. 5-Set-up or Clean-up Assistance-helper sets up or cleans up; patient completes activity. Fitzpatrick assists only prior to or following the activity. 4-Supervision or Touching Assistance-helper provides verbal cues and/or touching/steadying and/or contact guard assistance as patient completes activity. Assistance may be provided throughout the activity or intermittently. 3-Partial/Moderate Assistance-helper does LESS THAN HALF the effort. Fitzpatrick lifts, holds or supports trunk or limbs, but provides less than half the effort. 2-Substantial/Maximal Assistance-helper does MORE THAN HALF the effort. Fitzpatrick lifts or holds trunk or limbs and provides more than half the effort. 3-Folahpadi-ecljtq does ALL the effort. Patient does none of the effort to complete the activity. Or, the assistance of 2 or more helpers is required for the patient to complete the activity. If activity was not attempted, code reason: 7-Patient Refused. 9-Not Applicable-not attempted and the patient did not perform the activity before the current illness, exacerbation or injury. 10-Not Attempted due to Environmental Limitations-(lack of equipment, weather restraints, etc.). 88-Not Attempted due to Medical Conditions or Safety Concerns. Weight Bearing Right Lower Extremity: Right Weight Bearing/Tolerated Left Lower Extremity: Left Weight Bearing/Tolerated Exercises Supine Ex: Ankle pumps, Heel Slides, Straight leg raise, Hip abd/add Supine Reps: 12 (AAROM bilateral LE) Assessment Patient tolerated exercise. Increase activity as tolerated by patient. PT Short Term Goals Short Term Goals Time Frame: Apr 01, 2021 Roll Left & Right: 3 Lying to sitting on side of be: 3 Sit to stand: 3 Chair/ond-so-aiems transfer: 3 Toilet transfer: 3 Walk 10 feet: 2 Does pt use a wc or scooter: Yes Wheel 50ft w/2 turns: 3 Wheel 150 feet: 3 Type: Manual PT Slubber Tender Goals Slubber Tender Goals PT Half-Way Goals Time Frame: Apr 15, 2021 Roll Left & Right (QC): 4 Sit to Lying (QC): 4 Lying-Sitting on Side/Bed(QC): 4 Sit to Stand (QC): 4 Chair/Vyw-bz-Tfpvl Xfer(QC): 4 Toilet Transfer (QC): 4 Does the Patient Walk: No and Walking Goal IS indicated Walk 10 feet (QC): 3 Walk 50ft with 2 Turns (QC): 3 Walk 150 ft (QC): 3 Picking up an Object (QC): 4 Wheel 50 feet with 2 turns (QC: 4 Type: Manual Wheel 150 feet: 4 Type: Manual PT Plan Treatment/Plan Treatment Plan: Continue Plan of Care Treatment Plan: Bed Mobility, Education, Functional Activity Julia, Functional Strength, Group Therapy, Gait, Safety, Therapeutic Exercise, Transfers Treatment Duration: Jun 24, 2021 Frequency: 6 times per week Estimated Hrs Per Day: .25 hour per day Time/GCodes Time In: 1303 Time Out: 1317 Total Billed Treatment Time: 14 Total Billed Treatment 1 visit EX 14 min GERHARD JOSE PT Mar 21, 2021 13:53
[2021-03-21 14:23] VITALS: BP 162/89
== END 2021-03-21 15:05 | DRG 603 ==
LOC: ER 14:12 → 4TH 18:30
PROVIDERS: ADMIT Family Medicine; ATTEND Family Medicine
DX: L03.115 Cellulitis of right lower limb (principal); Z68.44 Body mass index [BMI] 60.0-69.9, adult; I48.91 Unspecified atrial fibrillation; I25.10 Atherosclerotic heart disease of native coronary artery without angina pectoris; M19.90 Unspecified osteoarthritis, unspecified site; E03.9 Hypothyroidism, unspecified; F41.9 Anxiety disorder, unspecified; F32.9 Major depressive disorder, single episode, unspecified; I50.9 Heart failure, unspecified; I11.0 Hypertensive heart disease with heart failure; R53.81 Other malaise; L03.116 Cellulitis of left lower limb; E78.5 Hyperlipidemia, unspecified; I87.8 Other specified disorders of veins; E66.01 Morbid (severe) obesity due to excess calories; Z20.822 Contact with and (suspected) exposure to COVID-19; Z95.0 Presence of cardiac pacemaker
CPT/HCPCS: 36410; 36415; 73521; 76937; 80048; 80053; 80202; 85007; 85025; 85027; 86141; 87040; 87186; 87636; 91301; 96374; 96375

== ENCOUNTER 2021-05-16 11:39 | Emergency (ER) | payer MEDICARE ==
[~2021-05-16] VITALS: Ht 160 cm; Wt 150.0 kg
--- NOTE | 2021-05-16 12:03 | ED Neurological Problem ---
General Chief Complaint: Neurological Problems Stated Complaint: CONFUSION, BRAIN MASS Nursing Triage Note: PT BROUGHT IN BY [facility] FROM [facility] FOR FURTHER EVALUATION AND TRANSFER OF BRAIN MASS. PT HAD OUTPATIENT CT SCAN THIS MORNING THAT SHOWED NEW BRAIN MASS. Source: patient, fdc records, other (DR. CHAPPELL) History of Present Illness Date Seen by Provider: May 16, 2021 Time Seen by Provider: 11:36 Initial Comments PT ARRIVES VIA EMS FROM [facility] DR. CHAPPELL CALLED PRIOR TO PT'S ARRIVAL. PT HAD OUTPATIENT CT OF HEAD AND BONY PELVIS THIS AM HEAD CT SHOWED A BRAIN MASS WITH SOME EARLY HERNIATION , VASOGENIC EDEMA, WITH MIDLINE SHIFT,AND ENLARGED VENTRICLE DR. CHAPPELL HAS ALREADY DISCUSSED WITH DR. TAMERA WHITLEY, NEUROSURGEON, AND WITH [facility], AND PT HAD BEEN ACCEPTED FOR ADMIT THERE, BUT EMS WOULD NOT TRANSPORT FROM LONG TERM TO [place], AND WOULD ONLY TRANSPORT PT HERE TO THIS ER, AND THEN WOULD HAVE TO BE THEN TRANSFERRED FROM THIS ER TO [place]. PT ONLY C/O FEELING OFF BALANCE NO HEADACHE DENIES VISION CHANGES DENIES NAUSEA/VOMITING DENIES PARESTHESIAS OR MOTOR DEFICITS DENIES PAIN ANYWHERE AT THIS TIME DAUGHTER IS HERE AND STATES THAT SHE NOTICED VERY MILD FORGETFULNESS EARLIER THIS SUMMER, BUT STATES WAS PT WAS ADMITTED IN FEBRUARY FOR UTI AND GENERALIZED WEAKNESS, WHICH HAS GRADUALLY PROGRESSED AND PT IS NON-AMBULATORY NOW PT WAS ADMITTED TO THE LONG TERM AFTER THAT HOSPITAL ADMISSION DAUGHTER STATES SHE HAS NOTICED PROGRESSIVE CONFUSION SINCE SHE WAS ADMITTED TO THE LONG TERM, ESPECIALLY IN THE LAST 6 WEEKS PT IS A FULL CODE PCP:DR. CHAPPELL Allergies and Home Medications Allergies Coded Allergies: adhesive tape (Verified Allergy, Severe, RASH/ ITCHING, 11/21/18) gemfibrozil (Verified Allergy, Severe, SEPSIS, 12/21/19) codeine (Verified Allergy, Mild, N/V, 12/21/19) hydrocodone (Verified Adverse Reaction, Mild, NAUSEA, 12/21/19) Patient Home Medication List Home Medication List Reviewed: Yes Acetaminophen (Tylenol) 325 Mg Tablet, 650 MG PO Q6H PRN for PAIN-MILD (1-4), (Reported) Entered as Reported by: JOCELYNN TIPTON on 03/20/21 0903 Apixaban (Eliquis) 5 Mg Tablet, 5 MG PO BID, (Reported) Entered as Reported by: COREY FLORES on 11/21/18 08 Atorvastatin Calcium (Atorvastatin Calcium) 20 Mg Tablet, 20 MG PO HS, (Reported) Entered as Reported by: COREY FLORES on 11/21/18842 Lactobacillus Acidophilus (Acidophilus Lactobacilli) 1 Each Capsule, 1 EACH PO TID Prescribed by: LEENA CHAPPELL on 03/21/211099 Levofloxacin (Levofloxacin) 500 Mg Tablet, 500 MG PO DAILY Prescribed by: LEENA CHAPPELL on 03/21/21 1100 Levothyroxine Sodium (Euthyrox) 50 Mcg Tablet, 50 MCG PO DAILY, (Reported) Entered as Reported by: JOCELYNN TIPTON on 03/20/21 09 Lisinopril (Lisinopril) 10 Mg Tablet, 10 MG PO HS, (Reported) Entered as Reported by: COREY FLORES on 11/21/18842 Lutein/Zeaxanthin (Ocuvite Blue Light 25-5 mg Sfg) 1 Each Capsule, 1 EACH PO DAILY, (Reported) Entered as Reported by: KAY GORDON on 01/11/211550 Metoprolol Succinate (Metoprolol Succinate) 25 Mg Tab.er.24h, 25 MG PO HS, (Reported) Entered as Reported by: KAY GORDON on 01/11/211550 [place] 3 Polyunsat Fatty Acids (Fish Oil 1,000 mg Capsule) 1,000 Mg Cap, 1,000 MG PO BID, (Reported) Entered as Reported by: COREY FLORES on 11/21/18842 Potassium Chloride (Potassium Chloride) 20 Meq Tab.er.prt, 10 MEQ PO BID, (Reported) Entered as Reported by: JOCELYNN TIPTON on 03/20/21 09 [Apply Cider Wendymy] , 1 EA PO TID, (Reported) Entered as Reported by: KAY GORDON on 01/11/211550 Review of Systems Review of Systems Constitutional: No chills, No diaphoresis; dizziness; No fever; malaise, weakness Eyes: No Symptoms Reported Ears, Nose, Mouth, Throat: no symptoms reported Respiratory: no symptoms reported; No cough, No short of breath Cardiovascular: no symptoms reported Gastrointestinal: No diarrhea, No vomiting; other (ONGOING BOWEL INCONTINENCE) Genitourinary: incontinence (ONGOING) Musculoskeletal: no symptoms reported Skin: no symptoms reported Psychiatric/Neurological: See HPI, Cognitive Dysfunction; Denies Headache, Denies Numbness, Denies Petit Mal Seizures, Denies Tingling, Denies Tonic Clonic Seizures, Denies Weakness Endocrine: No Symptoms Reported Hematologic/Lymphatic: No Symptoms Reported Past Etneqwc-Imgqca-Owoqar Hx Seasonal Allergies Seasonal Allergies: Yes Past Medical History Surgeries: Yes (BILAT TKR, CATARACTS, D&C) Eye Surgery, Gallbladder, Joint Replacement, Orthopedic, Pacemaker Respiratory: Yes (PULMONARY HYPERTENSION) Currently Using CPAP: No Currently Using BIPAP: No Cardiac: Yes (AFIB SSS WITH PACEMAKER; CHF) Atrial Fibrillation, Coronary Artery Disease, Hypertension Neurological: Yes (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) Reproductive Disorders: No HIDE OR SKIN BUFFER History: Menopausal Sexually Transmitted Disease: No HIV/AIDS: No Genitourinary: Yes Bladder Infection Gastrointestinal: No Musculoskeletal: Yes Arthritis Endocrine: Yes (MORBID OBESITY) Hypothyroidsim HEENT: Yes (GLASSES; CATARACT SURGERY) Cataract Loss of Vision: Denies Hearing Impairment: Denies Cancer: No Did You Recieve Any Treatments: No Psychosocial: Yes (MILD) Anxiety, Depression Integumentary: No Blood Disorders: No Adverse Reaction/Blood Tranf: No (HAS HAD BLOOD WITH NO REACTION) Family Medical History No Pertinent Family Hx non-contributory Physical Exam Vital Signs Vital Signs - First Documented 05/16/21 11:40 Temp 36.2 Pulse 97 Resp 16 B/P (MAP) 106/79 (88) Pulse Ox 97 O2 Delivery Room Air Capillary Refill : Less Than 3 Seconds Height, Weight, BMI Height: 5'3.00" Weight: 339lbs. 0.0oz. 153.828124yu; 58.00 BMI Method: General Appearance: no apparent distress, obese (MORBIDLY OBESE) HEENT: PERRL/EOMI, other (BALDING) Neck: non-tender, normal inspection Respiratory: normal breath sounds, no respiratory distress, no accessory muscle use Cardiovascular: no murmur, irregularly irregular Gastrointestinal: non tender, soft Extremities: other (UNABLE TO DETERMINE IF EDEMA IS PRESENT DUE TO BODY HABITUS) Neurologic/Psychiatric: intelligence applications II-XII nml as tested, no motor/sensory deficits (GROSSLY INTACT), alert, normal mood/affect, other (ORIENTED TO PERSON, PLACE, SITUATION. NO OBVIOUS CONFUSION AT THIS TIME) Crainal Nerves: normal hearing, normal speech, PERRL Motor/Sensory: no motor deficit, no sensory deficit Skin: normal color, warm/dry Progress/Results/Core Measures Results/Orders Lab Results Laboratory Tests Test 05/16/21 12:20 Range/Units White Blood Count 10.3 4.3-11.0 10^3/uL Red Blood Count 5.07 3.80-5.11 10^6/uL Hemoglobin 15.4 11.5-16.0 g/dL Hematocrit 48 35-52 % Mean Corpuscular Volume 94 80-99 fL Mean Corpuscular Hemoglobin 30 25-34 pg Mean Corpuscular Hemoglobin Concent 32 32-36 g/dL Red Cell Distribution Width 12.7 10.0-14.5 % Platelet Count 244 130-400 10^3/uL Mean Platelet Volume 11.4 9.0-12.2 fL Immature Granulocyte % (Auto) 1 % Neutrophils (%) (Auto) 74 42-75 % Lymphocytes (%) (Auto) 13 12-44 % Monocytes (%) (Auto) 9 0-12 % Eosinophils (%) (Auto) 2 0-10 % Basophils (%) (Auto) 0 0-10 % Neutrophils # (Auto) 7.6 1.8-7.8 10^3/uL Lymphocytes # (Auto) 1.4 1.0-4.0 10^3/uL Monocytes # (Auto) 1.0 0.0-1.0 10^3/uL Eosinophils # (Auto) 0.2 0.0-0.3 10^3/uL Basophils # (Auto) 0.0 0.0-0.1 10^3/uL Immature Granulocyte # (Auto) 0.1 0.0-0.1 10^3/uL Prothrombin Time 16.2 H 12.2-14.7 SEC INR Comment 1.3 0.8-1.4 Activated Partial Thromboplast Time 31 24-35 SEC Sodium Level 141 135-145 MMOL/L Potassium Level 4.0 3.6-5.0 MMOL/L Chloride Level 104 98-107 MMOL/L Carbon Dioxide Level 24 21-32 MMOL/L Anion Gap 13 5-14 MMOL/L Blood Urea Nitrogen 15 7-18 MG/DL Creatinine 0.75 0.60-1.30 MG/DL Estimat Glomerular Filtration Rate 75 BUN/Creatinine Ratio 20 Glucose Level 106 H 70-105 MG/DL Calcium Level 10.7 H 8.5-10.1 MG/DL Corrected Calcium 10.9 H 8.5-10.1 MG/DL Magnesium Level 1.7 1.6-2.4 MG/DL Total Bilirubin 1.1 H 0.1-1.0 MG/DL Aspartate Amino Transf (AST/SGOT) 39 H 5-34 U/L Alanine Aminotransferase (ALT/SGPT) 49 0-55 U/L Alkaline Phosphatase 106 40-136 U/L Total Protein 7.3 6.4-8.2 GM/DL Albumin 3.7 3.2-4.5 GM/DL TSH Dewey Testing 2.55 0.35-4.94 UIU/ML SARS-CoV-2 RNA (RT-PCR) Not Detected Not Detecte My Orders Orders - SAYRA GORE DO Ed Iv/Invasive Line Start (05/16/21 11:46) Monitor-Rhythm Ecg Trace Only (05/16/21 11:46) Cbc With Automated Diff (05/16/21 11:46) Comprehensive Metabolic Panel (05/16/21 11:46) Magnesium (05/16/21 11:46) Protime With Inr (05/16/21 11:46) Partial Thromboplastin Time (05/16/21 11:46) Thyroid Analyzer (05/16/21 11:46) Lidocaine 1% Inj 20 Ml (Xylocaine 1% Inj (05/16/21 12:13) Covid 19 Inhouse Test (05/16/21 12:21) Medications Given in ED Current Medications Medications Dose Ordered Sig/Kalia Route Start Time Stop Time Status Last Admin Dose Admin Lidocaine HCl 20 ml STK-MED ONCE .ROUTE 05/16/21 12:13 05/16/21 12:17 DC 05/16/21 12:23 20 ML Vital Signs/I&O 05/16/21 05/16/21 11:40 13:38 Temp 36.2 Pulse 97 61 Resp 16 16 B/P (MAP) 106/79 (88) 113/68 Pulse Ox 97 96 O2 Delivery Room Air Room Air Blood Pressure Mean: 88 Progress Progress Note : Progress Note UNEVENTFUL ER STAY PT HAD NO COMPLAINTS DURING ENTIRE STAY, OTHER THAN FEELING A LITTLE "WOOZY" VITALS STABLE REVIEWED HEAD CT AND PELVIS CT DONE THIS MORNING Diagnostic Imaging Comments CT HEAD-- FINDINGS: There is an intermediate attenuation 3.5 x 3.3 cm extra-axial mass overlying the right frontal lobe. There is severe vasogenic edema throughout the right cerebral hemisphere. There is 15 mm of leftward midline shift. There is subfalcine herniation. There is mild effacement of the suprasellar cisterns. There is severe dilation of the frontal horn of the right lateral ventricle, likely due to being trapped due to the mass effect. The edema extends in the right temporal lobe. There is no intracranial hemorrhage. The orbits are normal. Paranasal sinuses are normal. Mastoid air cells are clear. No soft tissue abnormality is seen. No osseus lesions or fractures are seen. IMPRESSION: 1. Large intermediate attenuation extra-axial mass overlying the right frontal lobe with entrapment of the frontal horn of the right lateral ventricle and marked dilation of the frontal horn of the right lateral ventricle. 2. There is severe vasogenic edema throughout the right cerebral hemisphere extending into the temporal lobe with 15 mm of leftward midline shift and parafalcine herniation. 3. The critical findings were called to Dr. Curry by Dr. Bowers on 05/16/2021 at 8:43 AM. INDICATION: 81-year-old female, right outer hip pain. COMPARISON: Radiographs of the pelvis and hips March 19, 2021. FINDINGS: There are limitations of the exam relating to quantum mottle artifact relating to patient body habitus and difficulties with dosing. The hips are not dislocated. There is moderate to severe joint space loss of the right hip and moderate joint space loss of the left hip. There is osteophyte formation on the right. There are small subchondral cysts bilaterally. There is no identified fracture. Sensitivity for detection of fracture is somewhat reduced on this exam relating to the technical limitations of the study. The sacroiliac joints are normally aligned and without pronounced arthritis. The pubic symphysis is normally aligned. There are degenerative related findings at the pubic symphysis. The L4-L5 and L5-S1 disc heights are relatively well preserved. There are bilateral facet degenerative changes at L3-L4, L4-L5, and L5-S1. There are atherosclerotic calcifications. There is an intrauterine contraceptive device in the midline uterus. IMPRESSION: 1. Moderate to severe osteoarthritis of the right hip and moderate osteoarthritis of the left hip. 2. Technically limited study relating to quantum mottle artifact. This may reduce sensitivity for detection of fracture. No fracture is identified. 3. Facet degenerative changes bilaterally at L3-L4, L4-L5, and L5-S1. Reviewed: Reviewed by Me Departure Communication (Admissions) 1145--CALLED [facility] DR[facility] THEY WILL HAVE A BED FOR PT, DESPITE BEING ON DIVERSION 1249--SPOKE WITH DR. TAMERA WHITLEY, NEUROSURGEON, ACCEPTS PT FOR TRANSFER--PT TO GO TO ER. NO ADDITIONAL RECOMMENDATIONS AT THIS TIME. 1251--SPOKE WITH DR. AWAD, ER PHYSICIAN, ACCEPTS PT FOR TRANSFER Impression Primary Impression: NEW DIAGNOSIS OF BRAIN MASS Additional Impressions: Chronic atrial fibrillation HTN (hypertension) Morbid obesity NON AMBULATORY Disposition: 02 XFER SHT-TRM HOSP Condition: Stable Transfer Transfer Reason: Exceeds level of care Transfer Facility: [facility] Method of Transfer: EMS Departure-Patient Inst. Referrals: LEENA CHAPPELL MD (PCP/Family) Primary Care Physician SAYRA GORE DO May 16, 2021 12:03
[2021-05-16] MEDS ORDERED: LIDOCAINE 1% INJ 20 ML 20 ML VIAL ONE (12:13)
[2021-05-16 12:34] LABS: BASOPHILS % (AUTO) 0 % (0-10); EOSINOPHILS # (AUTO) 0.2 10^3/uL (0.0-0.3); EOSINOPHILS % (AUTO) 2 % (0-10); HEMATOCRIT 48 % (35-52); HEMOGLOBIN 15.4 g/dL (11.5-16.0); LYMPHOCYTES # (AUTO) 1.4 10^3/uL (1.0-4.0); LYMPHOCYTES % (AUTO) 13 % (12-44); MEAN CORPUSCULAR HEMOGLOBIN 30 pg (25-34); MEAN CORPUSCULAR HGB CONC 32 g/dL (32-36); MEAN CORPUSCULAR VOLUME 94 fL (80-99); MEAN PLATELET VOLUME 11.4 fL (9.0-12.2); MONOCYTES % (AUTO) 9 % (0-12); NEUTROPHILS # (AUTO) 7.6 10^3/uL (1.8-7.8); NEUTROPHILS % (AUTO) 74 % (42-75); PLATELET COUNT 244 10^3/uL (130-400); WHITE BLOOD COUNT 10.3 10^3/uL (4.3-11.0)
[2021-05-16 12:39] LABS: ALBUMIN 3.7 GM/DL (3.2-4.5)
[2021-05-16 12:41] LABS: CALCIUM 10.7 MG/DL (8.5-10.1); INR 1.3 (0.8-1.4); PROTHROMBIN TIME PATIENT 16.2 SEC (12.2-14.7)
[2021-05-16 12:42] LABS: TOTAL PROTEIN 7.3 GM/DL (6.4-8.2)
[2021-05-16 12:44] LABS: BILIRUBIN,TOTAL 1.1 MG/DL (0.1-1.0)
[2021-05-16 12:45] LABS: CREATININE SERUM 0.75 MG/DL (0.60-1.30)
[2021-05-16 12:48] LABS: MAGNESIUM 1.7 MG/DL (1.6-2.4)
[2021-05-16 13:09] LABS: TSH (THYROID ANALYZER) 2.55 UIU/ML (0.35-4.94)
[2021-05-16 13:38] VITALS: BP 113/68
== END 2021-05-16 13:38 | disposition short-term general hospital (02) ==
LOC: EDUNIT# 11:39 → ER 11:41
DX: G93.89 Other specified disorders of brain (principal); I48.20 Chronic atrial fibrillation, unspecified; I10 Essential (primary) hypertension; E66.01 Morbid (severe) obesity due to excess calories; I11.0 Hypertensive heart disease with heart failure; I50.9 Heart failure, unspecified; I25.10 Atherosclerotic heart disease of native coronary artery without angina pectoris; E03.9 Hypothyroidism, unspecified; Z68.43 Body mass index [BMI] 50.0-59.9, adult; Z20.822 Contact with and (suspected) exposure to COVID-19; Z74.09 Other reduced mobility; Z79.01 Long term (current) use of anticoagulants; Z79.899 Other long term (current) drug therapy; Z79.890 Hormone replacement therapy
CPT/HCPCS: 36415; 80053; 83735; 84443; 85025; 85610; 85730; 87636; 93041

== ENCOUNTER → 2021-05-16 | Outpatient (CLI) | payer MEDICARE ==
[~2021-05-16] MED LIST changes: +ACET325T38 PO; +LACT1CAP87 PO; +LEVO-129 PO; +LEVO500T80 PO; +POTA20TA15 PO
--- NOTE | 2021-05-16 08:53 | Diagnostic Imaging Report ---
PROCEDURE: CT pelvis without contrast. TECHNIQUE: Multiple contiguous axial images were obtained through the pelvis without the use of intravenous contrast. Sagittal and coronal reformations were performed. Auto Exposure Controls were utilized during the CT exam to meet ALARA standards for radiation dose reduction. DATE: May 16, 2021. INDICATION: 81-year-old female, right outer hip pain. COMPARISON: Radiographs of the pelvis and hips March 19, 2021. FINDINGS: There are limitations of the exam relating to quantum mottle artifact relating to patient body habitus and difficulties with dosing. The hips are not dislocated. There is moderate to severe joint space loss of the right hip and moderate joint space loss of the left hip. There is osteophyte formation on the right. There are small subchondral cysts bilaterally. There is no identified fracture. Sensitivity for detection of fracture is somewhat reduced on this exam relating to the technical limitations of the study. The sacroiliac joints are normally aligned and without pronounced arthritis. The pubic symphysis is normally aligned. There are degenerative related findings at the pubic symphysis. The L4-L5 and L5-S1 disc heights are relatively well preserved. There are bilateral facet degenerative changes at L3-L4, L4-L5, and L5-S1. There are atherosclerotic calcifications. There is an intrauterine contraceptive device in the midline uterus. IMPRESSION: 1. Moderate to severe osteoarthritis of the right hip and moderate osteoarthritis of the left hip. 2. Technically limited study relating to quantum mottle artifact. This may reduce sensitivity for detection of fracture. No fracture is identified. 3. Facet degenerative changes bilaterally at L3-L4, L4-L5, and L5-S1. Dictated by: Dictated on workstation # [id number]
--- NOTE | 2021-05-16 08:57 | Diagnostic Imaging Report ---
EXAMINATION: CT head without contrast. TECHNIQUE: Multiple contiguous axial images were obtained through the brain without the use of intravenous contrast. All CT scans use one or more of the following dose optimizing techniques: automated exposure control, MA and/or KvP adjustment based on patient size and exam type or iterative reconstruction. HISTORY: Weakness of the left hand. COMPARISON: None available. FINDINGS: There is an intermediate attenuation 3.5 x 3.3 cm extra-axial mass overlying the right frontal lobe. There is severe vasogenic edema throughout the right cerebral hemisphere. There is 15 mm of leftward midline shift. There is subfalcine herniation. There is mild effacement of the suprasellar cisterns. There is severe dilation of the frontal horn of the right lateral ventricle, likely due to being trapped due to the mass effect. The edema extends in the right temporal lobe. There is no intracranial hemorrhage. The orbits are normal. Paranasal sinuses are normal. Mastoid air cells are clear. No soft tissue abnormality is seen. No osseus lesions or fractures are seen. IMPRESSION: 1. Large intermediate attenuation extra-axial mass overlying the right frontal lobe with entrapment of the frontal horn of the right lateral ventricle and marked dilation of the frontal horn of the right lateral ventricle. 2. There is severe vasogenic edema throughout the right cerebral hemisphere extending into the temporal lobe with 15 mm of leftward midline shift and parafalcine herniation. 3. The critical findings were called to Dr. Curry by Dr. Bowers on 05/16/2021 at 8:43 AM. Dictated by: Dictated on workstation # [id number]
== END ==
LOC: RAD 07:45
PROVIDERS: ATTEND Family Medicine
DX: M16.0 Bilateral primary osteoarthritis of hip (principal); M47.817 Spondylosis without myelopathy or radiculopathy, lumbosacral region; G93.5 Compression of brain; G93.89 Other specified disorders of brain
CPT/HCPCS: 70450; 72192

== ENCOUNTER 2022-12-08 13:20 | Emergency (ER) | payer MEDICARE, MEDICAID ==
[~2022-12-08] VITALS: Ht 160 cm; Wt 158.7 kg
[~2022-12-08 13:20] MED LIST changes: +LEVO-55 PO; -LEVO500T80 PO; +POTA-169 PO; +POTA-179 PO; -POTA20TA15 PO; -POTA20TA8 PO
--- NOTE | 2022-12-08 13:36 | ED Cough/URI ---
General Chief Complaint: Cough/Cold/Flu Symptoms Stated Complaint: COUGH Nursing Triage Note: PT BROUGHT IN BY [facility] FROM [facility] WITH COMPLAINT OF COUGH. PT WAS SENT OVER BY PCP FOR FURTHER EVALUATION DUE TO UNAVAILABILITY OF OUTPATIENT XRAY. PT STATES SHE HAS BEEN COUGHING FOR 4 DAYS AND HAS RIB SORENESS. Source: patient Exam Limitations: no limitations History of Present Illness Date Seen by Provider: Dec 08, 2022 Time Seen by Provider: 13:20 Initial Comments Patient is an 82-year-old female who presents to the emergency department with a chief complaint of cough over the last 4 days. Patient states that it is semiproductive of clear sputum. She denies fevers or chills. She does not feel short of breath. She has had to use inhalers before but not on a routine basis. Not a smoker. Morbidly obese. Not ambulatory. States she has had some ear fullness and a mild sore throat last week. No diarrhea, no dysuria. No ab dominal pain. Does not really want to be here. The nurse practitioner at [facility] had ordered an outpatient x-ray but services were not available so she sent her to the emergency room for an x-ray. Patient's vital signs are stable. No acute distress. Quite frustrated with having to be here. Patient would like COVID tested. Timing/Duration: other (4 days) Severity/Quality: sputum (Clear) Prior Episodes/Possible Cause: occasional episodes Associated Symptoms: other (Ear fullness, mild sore throat) Allergies and Home Medications Allergies Coded Allergies: adhesive tape (Verified Allergy, Severe, RASH/ ITCHING, 11/21/18) gemfibrozil (Verified Allergy, Severe, SEPSIS, 12/21/19) codeine (Verified Allergy, Mild, N/V, 12/21/19) hydrocodone (Verified Adverse Reaction, Mild, NAUSEA, 12/21/19) Patient Home Medication List Home Medication List Reviewed: Yes Acetaminophen (Tylenol) 325 Mg Tablet, 650 MG PO Q6H PRN for PAIN-MILD (1-4), (Reported) Entered as Reported by: JOCELYNN TIPTON on 03/20/21 0903 Apixaban (Eliquis) 5 Mg Tablet, 5 MG PO BID, (Reported) Entered as Reported by: COREY FLORES on 11/21/18 0843 Atorvastatin Calcium (Atorvastatin Calcium) 20 Mg Tablet, 20 MG PO HS, (Reported) Entered as Reported by: COREY FLORES on 11/21/18 08 Lactobacillus Acidophilus (Acidophilus Lactobacilli) 1 Each Capsule, 1 EACH PO TID Prescribed by: LEENA CHAPPELL on 03/21/21 1100 Levofloxacin (Levofloxacin) 500 Mg Tablet, 500 MG PO DAILY Prescribed by: LEENA CHAPPELL on 03/21/211099 Levothyroxine Sodium (Euthyrox) 50 Mcg Tablet, 50 MCG PO DAILY, (Reported) Entered as Reported by: JOCELYNN TIPTON on 03/20/21 09 Lisinopril (Lisinopril) 10 Mg Tablet, 10 MG PO HS, (Reported) Entered as Reported by: COREY FLORES on 11/21/18842 Lutein/Zeaxanthin (Ocuvite Blue Light 25-5 mg Sfg) 1 Each Capsule, 1 EACH PO DAILY, (Reported) Entered as Reported by: KAY GORDON on 01/11/21 155 Metoprolol Succinate (Metoprolol Succinate) 25 Mg Tab.er.24h, 25 MG PO HS, (Reported) Entered as Reported by: KAY GORDON on 01/11/21 155 [place] 3 Polyunsat Fatty Acids (Fish Oil 1,000 mg Capsule) 1,000 Mg Cap, 1,000 MG PO BID, (Reported) Entered as Reported by: COREY FLORES on 11/21/18842 Potassium Chloride (Potassium Chloride) 20 Meq Tab.er.prt, 10 MEQ PO BID, (Reported) Entered as Reported by: JOCELYNN TIPTON on 03/20/21 09 [Apply Altagracia Strauss] , 1 EA PO TID, (Reported) Entered as Reported by: KAY GORDON on 01/11/21 155 Review of Systems Review of Systems Constitutional: see HPI EENTM: throat pain, other (Ear fullness); No nose congestion Respiratory: cough, phlegm Cardiovascular: no symptoms reported Gastrointestinal: no symptoms reported Genitourinary: no symptoms reported Musculoskeletal: no symptoms reported Skin: no symptoms reported Past Kvhruqr-Ooqevg-Nucjtp Hx Patient Social History Tobacco Use?: No Use of E-Cig and/or Vaping dev: No Substance use?: No Alcohol Use?: No Pt feels they are or have been: No Seasonal Allergies Seasonal Allergies: Yes Past Medical History Surgeries: Yes (BILAT TKR, CATARACTS, D&C) Eye Surgery, Gallbladder, Joint Replacement, Orthopedic, Pacemaker Respiratory: Yes (PULMONARY HYPERTENSION) Currently Using CPAP: No Currently Using BIPAP: No Cardiac: Yes (AFIB SSS WITH PACEMAKER; CHF) Atrial Fibrillation, Coronary Artery Disease, Hypertension Neurological: Yes (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) Reproductive Disorders: No LAN SUPPORT SPECIALIST History: Menopausal Sexually Transmitted Disease: No HIV/AIDS: No Genitourinary: Yes Bladder Infection Gastrointestinal: No Musculoskeletal: Yes Arthritis Endocrine: Yes (MORBID OBESITY) Hypothyroidsim HEENT: Yes (GLASSES; CATARACT SURGERY) Cataract Loss of Vision: Denies Hearing Impairment: Denies Cancer: No Did You Recieve Any Treatments: No Psychosocial: Yes (MILD) Anxiety, Depression Integumentary: No Blood Disorders: No Adverse Reaction/Blood Tranf: No (HAS HAD BLOOD WITH NO REACTION) Family Medical History No Pertinent Family Hx non-contributory Physical Exam Vital Signs - First Documented Capillary Refill : Less Than 3 Seconds Height: 5'3.00" Weight: 339lbs. 0.0oz. 153.911733tw; 61.00 BMI Method: General Appearance: WD/WN, no apparent distress, obese (Morbid obesity) HEENT: PERRL/EOMI, TMs normal, pharynx normal; No TM abnormal (R), No TM abnormal (L); other (Dry oral mucosa) Neck: normal inspection Respiratory: no respiratory distress, no accessory muscle use, wheezing (Occasional scattered expiratory wheeze noted. Room air sats 93%) Cardiovascular: regular rate, rhythm Gastrointestinal: non tender, soft Extremities: normal inspection Neurologic/Psychiatric: alert, normal mood/affect, oriented x 3 Skin: normal color, warm/dry Progress/Results/Core Measures Suspected Sepsis SIRS Temperature: Pulse: 83 Respiratory Rate: 16 Blood Pressure 118 /69 Mean: 85 Results/Orders Lab Results Laboratory Tests Test 12/08/22 13:30 Range/Units SARS-CoV-2 RNA (RT-PCR) Not Detected Not Detecte My Orders Orders - KERRY CHAMPAGNE MD Covid 19 Inhouse Test (12/08/22 13:28) Chest 1 View, Ap/Pa Only (12/08/22 13:28) Isolation Central Supply Req (12/08/22 13:28) Vital Signs/I&O 12/08/22 12/08/22 12/08/22 13:20 13:20 15:30 Temp 37.2 37.2 Pulse 83 83 Resp 16 16 B/P (MAP) 118/69 (85) 110/84 Pulse Ox 92 92 O2 Delivery Room Air Room Air Room Air Capillary Refill : Less Than 3 Seconds Blood Pressure Mean: 85 Progress Note : Time: 14:39 Progress Note Patient seen and evaluated by me. Evaluation today includes physical exam, COVID test and chest x-ray. Pertinent physical exam findings, morbidly obese female, no acute distress. Awake alert oriented. Appears adequately hydrated. No significant HEENT findings. Lungs are clear, diminished throughout most likely secondary to size. Heart is regular. Room air oxygen saturations 94%. Abdomen is soft. No lower extremity edema. Differential diagnosis based on history and physical, bronchitis, pneumonia, viral syndrome, medication reaction. Chest x-ray independently evaluated by me, no focal infiltrates or effusions. Per radiologist she has mild central pulmonary vascular congestion. COVID test is negative. Patient is completely asymptomatic currently. She has occasional clear sputum with her cough. No complaints of shortness of breath, chest pain heaviness, tightness or squeezing. No lower extremity edema. I reviewed medical records from 2019 when the patient last had an echocardiogram. Her EF at that time was 55 to 65%. She believes she has had 1 since that time but is not on any diuretics and has never been told she has congestive heart failure. Patient states that the food at the [facility] has been excessively salty recently. I did write an order for her to have a low-sodium diet. I do not see any utility in doing further labs as the patient has no complaints other than a mild cough. No concerns for ACS or florid congestive failure due to to acute pulmonary edema. She is afebrile. She is on lisinopril however the cough is new within the last 4 days would rather monitor this symptom then change medications at this time. Lisinopril is known to cause dry cough. Patient is comfortable with the plan of care. Not requiring supplemental oxygen therapy. All questions are sought and answered. Patient is stable for discharge. Diagnostic Imaging Diagonstic Imaging: Xray Plain Films/CT/US/NM/MRI: chest Comments [facility]. [place], [place] NAME: JHONNY MCELROY [facility] REC#: [id number] PT STATUS: REG ER : 1940 PHYSICIAN: KERRY CHAMPAGNE MD ADMIT DATE: 12/08/22/ER Draft Date of Exam:12/08/22 CHEST 1 VIEW, AP/PA ONLY CLINICAL INDICATION: Patient with cough for 4 days and has rib soreness. EXAM: Portable chest x-ray upright view. COMPARISON: Chest x-ray dated 01/11/2021. FINDINGS: Lungs/pleura: Lungs are clear. There is no pneumothorax. There is no pleural effusion. Mediastinum: Unremarkable. Pulmonary vasculature: There is mild pulmonary vascular congestion which is most pronounced centrally.. Heart: Stable cardiomegaly. Cardiac pacemaker is again seen overlying the left chest and appears intact. Bones/extrathoracic soft tissue: Unremarkable. IMPRESSION: There is cardiomegaly with mild pulmonary vascular congestion which is most pronounced centrally. There is no lung infiltrate seen. Dictated on workstation # [id number] Dict: 12/08/22 1357 Trans: 12/08/22 1400 [facility] [id number] Interpreted by: ITZ HANEY MD Electronically signed by: Departure Impression Primary Impression: mild pulmonary vascular congestion Disposition: 01 HOME, SELF-CARE Condition: Stable Departure-Patient Inst. Decision time for Depature: 14:32 Referrals: [facility]LEENA OCONNELL MD (PCP/Family) Primary Care Physician Add. Discharge Instructions: You have some increased pulmonary (lung) fluid or congestion. It is very mild. This is most likely due to fluid retention and decreasing the amount of salt in your food will help you not to retain so much fluid. I have written an order for a low salt diet. If you develop shortness of breath, pink, frothy sputum, chest pain or any other emergent, concerning symptoms, please return to the Emergency Department for re- evaluation. Please follow up with your primary care doctor next week. Copy Copies To 1: TIGIST ARRINGTON KATHRYN M MD Dec 08, 2022 13:36
--- NOTE | 2022-12-08 14:01 | Diagnostic Imaging Report ---
CLINICAL INDICATION: Patient with cough for 4 days and has rib soreness. EXAM: Portable chest x-ray upright view. COMPARISON: Chest x-ray dated 01/11/2021. FINDINGS: Lungs/pleura: Lungs are clear. There is no pneumothorax. There is no pleural effusion. Mediastinum: Unremarkable. Pulmonary vasculature: There is mild pulmonary vascular congestion which is most pronounced centrally.. Heart: Stable cardiomegaly. Cardiac pacemaker is again seen overlying the left chest and appears intact. Bones/extrathoracic soft tissue: Unremarkable. IMPRESSION: There is cardiomegaly with mild pulmonary vascular congestion which is most pronounced centrally. There is no lung infiltrate seen. Dictated by: Dictated on workstation # [id number]
[2022-12-08 15:30] VITALS: BP 110/84
== END 2022-12-08 15:30 | disposition home or self-care (01) ==
LOC: EDUNIT# 13:22 → ER 13:24
DX: J81.1 Chronic pulmonary edema (principal); E66.01 Morbid (severe) obesity due to excess calories; Z68.44 Body mass index [BMI] 60.0-69.9, adult; Z20.822 Contact with and (suspected) exposure to COVID-19
CPT/HCPCS: 71045; 87636